=== PATIENT | female | born 1955 ===

== ENCOUNTER 2018-03-11 10:07 | Day surgery (SDC) | payer OTHER ==
[2018-03-04 10:40] VITALS: BMI 24.4
--- NOTE | 2018-03-11 10:20 | CP.SDSHP ---
Same Day Surgery H & P - History Proposed Procedure: flexible bronchoscopy Pre-Op Diagnosis: right upper lobe mass - Previous Medical/Surgical History Pulmonary: Asthma, Bronchitis Neuro: Backaches Misc: Other (GERD with Floyd's Esophagus, Chronic Depression) Pain: 6.Severe Pain (chest wall pain, taking acetaminophen/oxycodone) Previous Surgical History: lumbar spinal fusion, vocal cord polyp, right ankle fracture, right shoulder surgery - Allergies Allergies: Allergies No Known Allergies Allergy (Verified 03/04/18 10:39) - Current Medications Current Medications: REVIEWED - Physical Exam General Appearance: WN,WD,NAD Mental Status: Alert & Oriented x3 Neuro: WNL Heart: WNL Lungs: Other (DULLNESS OVER RUL AREA. BREATH SOUNDS ARE DECREASED IN THE RUL WITH BRONCHIAL CHARACTER. DRY RALES IN RLL, NO AUDIBLE WHEEZING.) GI: WNL - {Optional Preform as Required} Abdomen: WNL ENT: WNL - Impression Impression: RUL MASS LESION, NEOPLASTIC DISEASE SUSPECT Pt. Evaluated Today:Candidate for Anesthesia & Procedure: Yes - Date & Time Date: 03/11/18 Time: 10:30 Short Stay Discharge - Short Stay Discharge Admitting Diagnosis/Reason for Visit: R91.8 Disposition: HOME/ ROUTINE Referrals: John Oviedo MD [Primary Care Provider] -
[2018-03-11 10:43] LABS: HEMOGLOBIN 11.7 g/dL (12.0-16.0); MEAN CELL VOLUME 80.7 fl (81.0-99.0); MEAN CORPUSCULAR HEMOGLOBIN 25.8 pg (27.0-31.0); RBC 4.52 Mil/uL (3.80-5.20); RED CELL DISTRIBUTION WIDTH 15.3 % (11.5-14.5)
[2018-03-11 10:52] LABS: INR 1.1 (0.9-1.2); PARTIAL THROMBOPLASTIN TIME 27.6 Seconds (25.6-37.1); PROTHROMBIN TIME 11.9 Seconds (9.8-13.1)
[2018-03-11 10:53] LABS: BLOOD UREA NITROGEN 9 mg/dl (7-17); CALCIUM 9.3 mg/dL (8.4-10.2); GFR AFRICAN-AMERICAN > 60; GFR NON-AFRICAN AMERICAN > 60
[2018-03-11] MEDS ORDERED: Lactated Ringer's 1,000 ML IV ONE ×2 (11:10→13:20)
[2018-03-11] MEDS ORDERED: Lidocaine 2% Jelly (Uro-Jet) ONE ×2 (11:16)
[2018-03-11] MEDS ORDERED: Lidocaine 2% Jelly (5 ml) TOP ONE (11:17)
[2018-03-11] MEDS ORDERED: Midazolam 2 MG/2 ML VIAL ONE (11:21)
[2018-03-11] MEDS ORDERED: Ketamine 50 mg/ml Inj (10 ml) ONE (11:21)
[2018-03-11] MEDS ORDERED: Propofol 10 mg/ml Inj (20 ML) ONE (11:21)
[2018-03-11] MEDS: EPINEPHrine 1 mg/ml (1:1000) Inj ONE ×3 (12:40→12:47)
[2018-03-11] MEDS ORDERED: Lidocaine 2% Inj (20ml) IJ ONE ×2 (12:40→12:42)
[2018-03-11] MEDS: Lidocaine 2% Jelly (30 ml) ONE ×2 (12:45→12:46)
[2018-03-11] MEDS ORDERED: EPINEPHrine 1 mg/ml (1:1000) Inj ONE (12:50)
[2018-03-11] MEDS ORDERED: HYDROmorphone 0.5 mg/0.5 ml ISec IVP PRN (13:27)
[2018-03-11] MEDS ORDERED: HYDROmorphone 0.5 mg/0.5 ml ISec ONE (13:36)
--- NOTE | 2018-03-11 13:44 | CP.SDSHP ---
Same Day Surgery H & P - Allergies Allergies: Allergies No Known Allergies Allergy (Verified 03/04/18 10:39) - Physical Exam Vital Signs: Vital Signs 03/11/18 10:51 Temperature 98.6 F Pulse Rate 81 Respiratory 18 Rate Blood Pressure 146/57 L O2 Sat by Pulse 97 Oximetry Short Stay Discharge - Short Stay Discharge Admitting Diagnosis/Reason for Visit: R91.8 Disposition: HOME/ ROUTINE Referrals: John Oviedo MD [Primary Care Provider] - Follow-up: Call my office on Wednesday for follow up appointment. Additional Instructions (Diet, Activity): Resume all routine activities as before. Resume all medications as before. Tylenol for fever if present tonight. Pain medications as needed/prescribed. Progress Note/Discharge Note with Instructions: Seen in PACU post bronchoscopy. Extubated, awake and in no distress. Post procedure CXR shows large RUL mass w/o any new infiltrates, effusion or pneumothorax. Patient will be transferred back to SDS unit. Plan is for discharge to home after having PO intake.
--- NOTE | 2018-03-11 14:47 | RAD ---
HISTORY: PACU post bronchoscopy COMPARISON: Chest radiograph dated 12/06/2012 FINDINGS: LUNGS: Right upper lobe mass with probable component of atelectasis as there is superior displacement of the fissure. PLEURA: No significant pleural effusion identified, no pneumothorax apparent. CARDIOVASCULAR: Atherosclerotic aortic calcifications. Cardiomediastinal silhouette within normal limits. OSSEOUS STRUCTURES: Punched in. VISUALIZED UPPER ABDOMEN: Normal. OTHER FINDINGS: None. IMPRESSION: Right upper lobe mass with probable component of atelectasis as there is superior displacement of the fissure. No appreciable pneumothorax. Findings conveyed to TOMAS Mack by Dr. Francisco at 2:40 p.m. on 03/11/2018.
[2018-03-11 15:13] VITALS: O2SAT 96
[2018-03-11 15:19] VITALS: RESP 18
[2018-03-11 16:04] VITALS: BP 142/78; PULSE 82; TEMP 97.8
== END 2018-03-11 16:05 | disposition home or self-care (01) ==
LOC: H.OPSURG 10:07
PROVIDERS: ATTEND Internal Medicine Pulmonary Disease
DX: R91.8 Other nonspecific abnormal finding of lung field (principal); J44.9 Chronic obstructive pulmonary disease, unspecified; E78.5 Hyperlipidemia, unspecified; K21.9 Gastro-esophageal reflux disease without esophagitis; Z87.891 Personal history of nicotine dependence; M19.90 Unspecified osteoarthritis, unspecified site
CPT/HCPCS: 31622; 36415; 71045; 80048; 85027; 85610; 85730; 87015; 87070; 87101; 87116; 87181; 87206; 88104; 88305; J0171; J1170; J2001; J2250; J2704; J3010; J7040; J7120

== ENCOUNTER 2018-03-15 10:57 | Emergency (ER) | payer OTHER ==
[2018-03-15 10:57] VITALS: BMI 24.4
[2018-03-15 11:07] VITALS: TEMP 98.6
[2018-03-15] MEDS ORDERED: Morphine 4 MG/ML VIAL IM STA (11:57)
[2018-03-15] MEDS ORDERED: Morphine 4 MG/ML VIAL ONE (12:15)
--- NOTE | 2018-03-15 12:35 | ED PDOC ---
HPI: Back Time Seen by Provider: 03/15/18 11:18 Chief Complaint (Nursing): Back Pain Chief Complaint (Provider): right sided back pain History Per: Patient History/Exam Limitations: no limitations Onset/Duration Of Symptoms: Days Current Symptoms Are (Timing): Still Present Additional Complaint(s): Britney Han is a 63 year old female, with no significant past medical history, who presents to the emergency department complaining of chronic right upper back pain. Patient had a biopsy done for her lung by Dr. Burgess x6 days ago but reports chronic pain was prior to biopsy. Patient had a CT scan done and was given Tylenol, ibuprofen and oxycodone for pain but with no relief. Patient called Dr. Burgess who advised her to come to ER for stronger pain medication. Patient states pain is worst with lying down and alleviated with sitting down. She denies any fever, chills, or other medical complaints. PMD: Dr. Oviedo Past Medical History Reviewed: Historical Data, Nursing Documentation, Vital Signs Vital Signs: Last Vital Signs Temp 98.6 F 03/15/18 11:06 Pulse 77 03/15/18 11:06 Resp 19 03/15/18 11:06 BP 188/67 H 03/15/18 11:06 Pulse Ox 96 03/15/18 11:06 - Medical History PMH: Anxiety, Arthritis, Bronchitis, Depression, Gastritis, Hyperlipidemia Denies: Diabetes, Chronic Kidney Disease - Surgical History Surgical History: No Surg Hx - Family History Family History: States: Unknown Family Hx - Social History Ex-Smoker (has not smoked in the last 12 months): Yes Alcohol: Social Drugs: Denies - Home Medications Home Medications: Ambulatory Orders Medication Instructions Recorded Dexlansoprazole [Dexilant] 1 mg PO DAILY 12/03/14 Zolpidem Tartrate [Ambien] 1 tab PO HS 12/07/14 clonazePAM [clonAZEPAM] 1 mg PO QWK 12/07/14 Oxycodone HCl/Acetaminophen 1 tab PO Q4 PRN #12 tab 08/20/15 [Percocet 325 mg-5 mg] Alprazolam [Xanax] 0.25 mg PO BID #10 tab 10/23/15 Desvenlafaxine Succinate [Pristiq 25 mg PO DAILY 03/11/18 ER] Rosuvastatin Calcium [Crestor] 10 mg PO DAILY 03/11/18 - Allergies Allergies/Adverse Reactions: Allergies Allergy/AdvReac Type Severity Reaction Status Date / Time No Known Allergies Allergy Verified 03/04/18 10:39 Review of Systems ROS Statement: Except As Marked, All Systems Reviewed And Found Negative Constitutional: Negative for: Fever, Chills Musculoskeletal: Positive for: Back Pain (right upper ) Physical Exam - Reviewed Nursing Documentation Reviewed: Yes Vital Signs Reviewed: Yes - Physical Exam Appears: Positive for: Non-toxic, No Acute Distress Head Exam: Positive for: ATRAUMATIC, NORMOCEPHALIC Skin: Positive for: Normal Color, Warm, Dry Eye Exam: Positive for: Normal appearance Neck: Positive for: Painless ROM Cardiovascular/Chest: Positive for: Regular Rate, Rhythm. Negative for: Murmur Respiratory: Positive for: Normal Breath Sounds. Negative for: Respiratory Distress Gastrointestinal/Abdominal: Positive for: Normal Exam, Soft. Negative for: Tenderness Back: Positive for: Other (right upper back tenderness). Negative for: L CVA Tenderness, R CVA Tenderness, Vertebral Tenderness Extremity: Positive for: Normal ROM (upper and lower extremities). Negative for : Deformity, Swelling Neurologic/Psych: Positive for: Alert, Oriented. Negative for: Motor/Sensory Deficits - ECG O2 Sat by Pulse Oximetry: 96 (RA) Pulse Ox Interpretation: Normal Medical Decision Making Medical Decision Making: Initial Impression: chronic back pain Initial Plan: --Chest two views (PA/LAT) [RAD] --Morphine 2 mg IM --Reevaluation Accession No. : [id number] Patient Name / ID : IRENE LEMONS / [id number] Exam Date : 03/15/2018 11:57:13 ( Approved ) Study Comment : Sex / Age : F / 63Y Creator : Justin Nice MD Dictator : Justin Nice MD Foundry Operator : Pcts : Justin Nice MD Approver2 : Report Date : 03/15/2018 13:27:11 My Comment : HISTORY: Acute on chronic back pain COMPARISON: Portable chest 03/11/2018. TECHNIQUE: Chest PA and lateral FINDINGS: LUNGS: There is subtle interval aeration in the lung cephalad to a large, masslike density at the right upper lobe region though limited cavitation is possible here. Remaining lung aguirre are clear. PLEURA: No significant pleural effusion identified. No pneumothorax apparent. CARDIOVASCULAR: Normal. OSSEOUS STRUCTURES: No significant abnormalities. VISUALIZED UPPER ABDOMEN: Normal. OTHER FINDINGS: None. IMPRESSION: Mild aeration is seen cephalad to a large, right apical masslike density versus partial cavitation. CT examination of the chest is advised with contrast a lesser already evaluated. Remaining lung aguirre appear clear bilaterally otherwise. 12:40 -Spoke with Dr. Burgess. Attempted to review biopsy results but could not locate them. Scribe Attestation: Documented by Jacob Ward, acting as a scribe for Caty Calzada MD Provider Scribe Attestation: All medical record entries made by the Scribe were at my direction and personally dictated by me. I have reviewed the chart and agree that the record accurately reflects my personal performance of the history, physical exam, medical decision making, and the department course for this patient. I have also personally directed, reviewed, and agree with the discharge instructions and disposition. Disposition - Clinical Impression Clinical Impression: Chronic back pain, Lung mass - Disposition Referrals: John Oviedo MD [Staff Provider] - Disposition: Routine/Home Disposition Time: 14:20 Condition: STABLE Instructions: Chronic Pain Forms: [email or web address] (Surinamese)
--- NOTE | 2018-03-15 13:28 | RAD ---
HISTORY: Acute on chronic back pain COMPARISON: Portable chest 03/11/2018. TECHNIQUE: Chest PA and lateral FINDINGS: LUNGS: There is subtle interval aeration in the lung cephalad to a large, masslike density at the right upper lobe region though limited cavitation is possible here. Remaining lung aguirre are clear. PLEURA: No significant pleural effusion identified. No pneumothorax apparent. CARDIOVASCULAR: Normal. OSSEOUS STRUCTURES: No significant abnormalities. VISUALIZED UPPER ABDOMEN: Normal. OTHER FINDINGS: None. IMPRESSION: Mild aeration is seen cephalad to a large, right apical masslike density versus partial cavitation. CT examination of the chest is advised with contrast a lesser already evaluated. Remaining lung aguirre appear clear bilaterally otherwise.
[2018-03-15 14:41] VITALS: BP 164/70; PULSE 80; RESP 16; O2SAT 96
== END 2018-03-15 14:40 | disposition home or self-care (01) ==
LOC: H.ER 10:57
DX: M54.9 Dorsalgia, unspecified (principal); R91.8 Other nonspecific abnormal finding of lung field; G89.29 Other chronic pain; E78.5 Hyperlipidemia, unspecified; F32.9 Major depressive disorder, single episode, unspecified; F41.9 Anxiety disorder, unspecified
CPT/HCPCS: 71046; 96372; 99282; J2270

== ENCOUNTER 2018-04-07 09:04 | Day surgery (SDC) | payer OTHER ==
[2018-04-07] MEDS ORDERED: Lactated Ringer's 1,000 ML IV ONE (09:45)
[2018-04-07] MEDS ORDERED: Propofol 10 mg/ml Inj (20 ML) ONE (14:35)
[2018-04-07] MEDS ORDERED: Midazolam 2 MG/2 ML VIAL ONE (14:35)
[2018-04-07] MEDS ORDERED: LIDOCAINE 2% 10ML 20 MG/ML VIAL IJ ONE (14:36)
[2018-04-07] MEDS ORDERED: Lidocaine 1% w Epi 1:100,000 Inj ONE (14:37)
[2018-04-07 16:13] VITALS: RESP 18
[2018-04-07 18:17] VITALS: BP 162/72; PULSE 88; TEMP 99.3; O2SAT 98
--- NOTE | 2018-04-08 10:36 | CP.SDSHP ---
Same Day Surgery H & P - History Proposed Procedure: chest port insertion Pre-Op Diagnosis: right lung cancer - Allergies Allergies: Allergies No Known Allergies Allergy (Verified 03/04/18 10:39) - Impression Impression: 63 yo female w/ right lung cancer; plan chest port insertion - Date & Time Date: 04/07/18 Time: 15:00 Short Stay Discharge - Short Stay Discharge Admitting Diagnosis/Reason for Visit: LUNG CA Disposition: HOME/ ROUTINE Referrals: John Oviedo MD [Primary Care Provider] -
--- NOTE | 2018-04-08 10:37 | PCM.SURG1 ---
Surgeon's Initial Post Op Note - Surgeon's Notes Surgeon: Tavon Francisco MD Organic Preparation Technician: None Type of Anesthesia: MAC Pre-Operative Diagnosis: lung cancer Operative Findings: patent left internal jugular vein. 8 tongan chest port placed. catheter tip: cavoatrial junction Post-Operative Diagnosis: same Operation Performed: tunneled chest port insertion Specimen/Specimens Removed: n/a Estimated Blood Loss: EBL {In ML}: 3 Date of Surgery/Procedure: 04/07/18 Time of Surgery/Procedure: 15:15
--- NOTE | 2018-04-08 12:13 | VASCULAR ---
PROCEDURE: TUNNELED PORT PLACEMENT CLINICAL HISTORY: 63-year-old female with right lung cancer is referred to Interventional Radiology for tunneled port placement. COMPARISON: None. PROCEDURE: 1. Focused ultrasound of the left neck vasculature. 2. Ultrasound-guided access. 3. Placement of left internal jugular access tunneled chest port. 4. Fluoroscopic localization of catheter tip. PRE-PROCEDURE FINDINGS: 1. Patent left internal jugular vein. POST-PROCEDURE FINDINGS: 1. Placement of left internal jugular access 8 Portuguese chest port. Ready for use. 2. Catheter tip is at the SVC/ RA junction. INTERVENTIONAL RADIOLOGIST: Tavon Francisco M.D. (the attending was present for the entire procedure) ANESTHESIA: Provided by the attending anesthesiologist. Sedation was supervised by the anesthesiology attending with the presence of independent radiology nursing monitoring. Physiological data monitoring was performed throughout the entire procedure. The patient's blood pressure, EKG and pulse oximetry were recorded. The patient tolerated the procedure and sedation without untoward reactions. The intra-procedural sedation time was 30 minutes. MEDICATION: Lidocaine 1% for local subcutaneous analgesia. See anesthesia record for intravenous sedation medications. COMPLICATIONS: None. RADIATION DOSE: Fluoroscopy Time: 1.27 minutes DAP: 11.62 mGy PROCEDURE DESCRIPTION AND FINDINGS: The risks, benefits, alternatives and possible complications of the procedure were fully discussed; all questions were answered and informed consent was obtained. The patient was brought into the interventional suite and a pre-procedure 'time-out' was performed. The patient was placed on the fluoroscopy table in the supine position. The left neck and upper chest were prepped and draped in the usual sterile fashion. Maximum sterile barrier precautions were maintained throughout the entire procedure. Preliminary ultrasound images of the left neck vasculature demonstrate patency of the internal jugular vein. Following subcutaneous infiltration of lidocaine 1% for local analgesia, under ultrasound guidance, a 21-gauge needle was advanced into the left internal jugular vein with real-time visualization of needle entry. The ultrasound images were permanently recorded and submitted to the PACS. A 0.018 guidewire was advanced centrally. A 5 -Portuguese micropuncture sheath was advanced over the guidewire. The inner portion of the sheath was carefully removed with the guidewire and exchanged for a 0.035 guidewire. The micropuncture sheath was then exchanged over the guidewire for a peel-away sheath. Following subcutaneous infiltration of lidocaine 1% with epinephrine for local analgesia and hemostasis, a 3 cm incision was made approximately 7-9 cm from the venotomy site. A subcutaneous pocket was created using blunt and sharp dissection. The pocket was flushed with saline. The central venous access catheter was then tunneled from the subcutaneous pocket to the venotomy site and inserted into the internal jugular vein via the peel-away sheath. The catheter tip was placed at the SVC/RA junction. The external end of the catheter was connected to the port and the connection was tested. The incision was closed using interrupted subcutaneous 2-0 and running subcuticular 4-0 absorbable sutures. Dermabond was applied superficially. A 4-0 absorbable stitch was also placed at the venotomy site. Sterile dressings were applied. The patient tolerated the procedure well and was The patient tolerated the procedure well without immediate post-procedure complications and was transferred to the interventional radiology recovery area in stable condition. IMPRESSION: Successful insertion of 8 Portuguese tunneled chest port with catheter tip at the SVC RA junction. Port ready for use. No
== END 2018-04-07 18:20 | disposition home or self-care (01) ==
LOC: H.OPSURG 09:04
PROVIDERS: ATTEND Specialist
DX: C34.91 Malignant neoplasm of unspecified part of right bronchus or lung (principal); F32.9 Major depressive disorder, single episode, unspecified; K21.9 Gastro-esophageal reflux disease without esophagitis; Z87.891 Personal history of nicotine dependence; M19.90 Unspecified osteoarthritis, unspecified site
CPT/HCPCS: 36561; A4310; C1751; J0690; J2001; J2250; J2704; J3010; J7120

== ENCOUNTER 2018-04-23 00:52 | Inpatient (IN) | payer OTHER ==
[2018-04-23 00:52] VITALS: BMI 27.8
[2018-04-23] MEDS ORDERED: Morphine 4 MG/ML VIAL IV STA (01:16)
[2018-04-23] MEDS ORDERED: Morphine 4 MG/ML VIAL ONE (01:20)
--- NOTE | 2018-04-23 01:22 | ED PDOC ---
Lower Extremity Pain/Injury Time Seen by Provider: 04/23/18 01:10 Chief Complaint (Nursing): Weakness/Neurological Deficit Chief Complaint (Provider): Bilateral thigh pain, Right more than left History Per: Patient History/Exam Limitations: no limitations Onset/Duration Of Symptoms: Days Current Symptoms Are (Timing): Still Present Additional Complaint(s): 63 yo female with lung CA, restless leg syndrome, sciatica presents with bilateral thigh pain for 12 hours. PT states right is 10/10 and left if 6/10. Nothing makes it better or worse. PT states she took motrin at 8 which did not improve the pain. Pt denies fall or recent trauma. PT had 1 chemo treatment for lung CA and states she was also given potassium. Past Medical History Reviewed: Historical Data, Nursing Documentation, Vital Signs Vital Signs: Last Vital Signs Temp 98.2 F 04/23/18 00:55 Pulse 122 H 04/23/18 00:55 Resp 16 04/23/18 00:55 BP 122/57 L 04/23/18 00:55 Pulse Ox 94 L 04/23/18 00:55 - Medical History PMH: Anxiety, Arthritis, Bronchitis, Depression, Gastritis, Hyperlipidemia Denies: Diabetes, Chronic Kidney Disease - Surgical History Surgical History: No Surg Hx - Family History Family History: States: Unknown Family Hx - Living Arrangements Living Arrangements: With Family - Social History Current smoker - smoking cessation education provided: No - Home Medications Home Medications: Ambulatory Orders Medication Instructions Recorded Desvenlafaxine Succinate [Pristiq] 50 mg PO DAILY 04/23/18 Dexlansoprazole [Dexilant] 30 mg PO DAILY 04/23/18 Famotidine [Pepcid] 20 mg PO DAILY 04/23/18 Sucralfate [Carafate Oral Susp] 1 gm PO DAILY 04/23/18 - Allergies Allergies/Adverse Reactions: Allergies Allergy/AdvReac Type Severity Reaction Status Date / Time No Known Allergies Allergy Verified 04/23/18 01:58 Review of Systems ROS Statement: Except As Marked, All Systems Reviewed And Found Negative Constitutional: Negative for: Fever, Chills Musculoskeletal: Positive for: Leg Pain Physical Exam - Reviewed Nursing Documentation Reviewed: Yes Vital Signs Reviewed: Yes - Physical Exam Appears: Positive for: Well, Non-toxic, No Acute Distress Head Exam: Positive for: ATRAUMATIC, NORMAL INSPECTION, NORMOCEPHALIC Skin: Positive for: Normal Color, Warm, DRY Eye Exam: Positive for: Normal appearance ENT: Positive for: Normal ENT Inspection Neck: Positive for: Normal, Painless ROM Cardiovascular/Chest: Positive for: Regular Rate, Rhythm Respiratory: Positive for: Normal Breath Sounds. Negative for: Accessory Muscle Use, Respiratory Distress Back: Positive for: Normal Inspection Extremity: Positive for: Normal ROM (Bilateral hips and knees which result in increased pain; ), Other (No palpable masses, no ecchymosis ). Negative for: Deformity, Swelling Neurologic/Psych: Positive for: Alert, Oriented - Laboratory Results Result Diagrams: 04/23/18 01:20 04/23/18 01:20 - ECG O2 Sat by Pulse Oximetry: 94 Medical Decision Making Medical Decision Making: XR of the femurs without acute findings. Labs reviewed with Dr. Sheldon. Pt and family initially states that temperature was 100.0 and on re-evaluation states it was 101.0. Low WBC count - CXR, Urine and blood cultures ordered. Pt continued pain after morphine IV, states pain is 10/10 right and 6/10 left. 1520 - Discussed admission with family reunification specialist. Disposition - Clinical Impression Clinical Impression: Leg pain, Neutropenic fever - Patient ED Disposition Is Patient to be Admitted: No - Disposition Disposition Time: 04:15 Condition: STABLE
[2018-04-23 01:47] LABS: ALBUMIN 3.3 g/dL (3.5-5.0); ALT/SGPT 27 U/L (9-52); AST/SGOT 18 U/L (14-36); BLOOD UREA NITROGEN 14 mg/dl (7-17); CALCIUM 7.6 mg/dL (8.4-10.2); GFR AFRICAN-AMERICAN > 60; GFR NON-AFRICAN AMERICAN > 60
[2018-04-23 02:00] LABS: BASO % 0.4 % (0.0-2.0); EOS % 3.9 % (0.0-4.0); HEMOGLOBIN 9.7 g/dL (12.0-16.0); LYMPH # 0.4 K/uL (1.0-4.3); LYMPH % 64.7 % (20.0-40.0); MEAN CELL VOLUME 77.3 fl (81.0-99.0); MEAN CORPUSCULAR HGB CONC 33.6 g/dL (33.0-37.0); MEAN PLATELET VOLUME 7.8 fl (7.2-11.7); MONO # 0.1 K/uL (0.0-0.8); MONO % 24.6 % (0.0-10.0); NEUT % 6.4 % (50.0-75.0); NRBC % 0.6 % (0.0-0.0); PLATELET COUNT 145 K/uL (130-400); RBC 3.73 Mil/uL (3.80-5.20); RED CELL DISTRIBUTION WIDTH 16.2 % (11.5-14.5)
[2018-04-23] MEDS ORDERED: Sodium Chloride 0.9% 1,000 ML IV STA ×2 (02:00→04:32)
[2018-04-23] MEDS ORDERED: Potassium Chloride 20 mEq ER Tab PO STA (02:01)
[2018-04-23 02:02] LABS: WHITE BLOOD COUNT 0.5 K/uL (4.8-10.8)
[2018-04-23] MEDS ORDERED: Potassium Chloride 20 mEq ER Tab PO ONE ×2 (02:04→08:57)
[2018-04-23 03:40] LABS: VENOUS BLOOD GAS BASE EXCESS 0.1 mmol/L (0.0-2.0); VENOUS BLOOD GAS PCO2 43 mmHg (40-60); VENOUS BLOOD GAS PO2 17 mm/Hg (30-55); VENOUS BLOOD PH 7.38 (7.32-7.43)
[2018-04-23] MEDS ORDERED: Piperacillin/Tazobact 3.375 GM in Sodium Chloride 0.9% 100 ML IV ONE (04:15)
[2018-04-23] MEDS ORDERED: Piperacillin/Tazobact 3.375 gm Inj IVPB ONE (04:32)
[2018-04-23 05:28] LABS: LYMPHOCYTE 88 % (20-50); MONOCYTE 4 % (0-10); NEUTROPHIL 8 % (42-75); PLATELET ESTIMATE NORMAL (NORMAL); ROULEAUX FORMATION SLIGHT; TOTAL CELLS COUNTED 50
[2018-04-23 05:30] LABS: ANISOCYTOSIS SLIGHT
[2018-04-23] MEDS ORDERED: Sodium Chloride 0.9% 500 ML IV SCH (05:45)
--- NOTE | 2018-04-23 05:46 | CP.PCM.HP ---
History of Present Illness - History of Present Illness History of Present Illness: 63 y/o F with PMHx of Lung cancer diagnosed 2 months ago, on chemo presents to ED complaining of fever. Patient states that since yesterday afternoon she started having sharp pain in her legs, more intense in her right thigh. Denies back pain, weakness in lower extremities, new onset of bladder or bowel incontinence. Also patient states she started having chills yesterday afternoon, and when her family checked her temp was 100 F first time, and re-check temp 101. reports on and off nausea without vomiting since she was started on chemo. Denies abdominal pain, diarrheas, cp, SOB, cough, urinary symptoms. PMD: Dr. Oviedo Fruit And Vegetable Packer: Dr. Burgess Oncologist: as per [facility]: Dr. Vital PMHx: Lung ca, anxiety, depression, HLD, and GERD Allergies: NKDA Surgical Hx: spinal effusion SocialHx: former smoker, stopped 5 years ago, denies etoh and illicit drugs Present on Admission - Present on Admission Any Indicators Present on Admission: No History of DVT/PE: No History of Uncontrolled Diabetes: No Urinary Catheter: No Decubitus Ulcer Present: No Review of Systems - Review of Systems All systems: reviewed and no additional remarkable complaints except (as per HPI ) Past Patient History - Tetanus Immunizations Tetanus Immunization: Unknown - Past Medical History & Family History Past Medical History?: Yes - Past Social History Smoking Status: Former Smoker - PULMONARY Hx Bronchitis: Yes - NEUROLOGICAL Hx Neurological Disorder: No - HEENT Hx HEENT Problems: No - RENAL Hx Chronic Kidney Disease: No - ENDOCRINE/METABOLIC Hx Endocrine Disorders: No - HEMATOLOGICAL/ONCOLOGICAL Hx Blood Disorders: No - INTEGUMENTARY Hx Dermatological Problems: No - MUSCULOSKELETAL/RHEUMATOLOGICAL Hx Arthritis: Yes - GASTROINTESTINAL Hx Gastritis: Yes - GENITOURINARY/GYNECOLOGICAL Hx Genitourinary Disorders: No - PSYCHIATRIC Hx Anxiety: Yes Hx Depression: Yes - SURGICAL HISTORY Hx Surgeries: Yes Other/Comment: LUMBAR SPINAL FUSION,THROAT POLYPECTOMY AND LUNG BX - ANESTHESIA Hx Anesthesia: Yes Hx Anesthesia Reactions: No Hx Malignant Hyperthermia: No Meds Allergies/Adverse Reactions: Allergies Allergy/AdvReac Type Severity Reaction Status Date / Time No Known Allergies Allergy Verified 04/23/18 01:58 Physical Exam - Constitutional Appears: Chronically Ill, Other (uncomfortable because pain) - Head Exam Head Exam: ATRAUMATIC, NORMOCEPHALIC - Eye Exam Eye Exam: Normal appearance - ENT Exam ENT Exam: Mucous Membranes Dry - Respiratory Exam Respiratory Exam: Clear to Auscultation Bilateral, NORMAL BREATHING PATTERN. absent: Rales, Rhonchi, Wheezes, Respiratory Distress - Cardiovascular Exam Cardiovascular Exam: REGULAR RHYTHM, +S1, +S2 - GI/Abdominal Exam GI & Abdominal Exam: Normal Bowel Sounds, Soft. absent: Guarding, Rebound, Rigid, Tenderness - Extremities Exam Extremities exam: Positive for: calf tenderness (bilateral). Negative for: pedal edema Additional comments: Lower extremities tender to palpation from thigh to legs bilateral. - Back Exam Back exam: NORMAL INSPECTION. absent: CVA tenderness (L), CVA tenderness (R) - Neurological Exam Neurological exam: Alert, Oriented x3 - Skin Skin Exam: Dry, Intact, Pallor Results - Vital Signs Recent Vital Signs: Last Vital Signs Temp 98.1 F 04/23/18 04:38 Pulse 98 H 04/23/18 04:38 Resp 19 04/23/18 04:38 BP 106/58 L 04/23/18 04:38 Pulse Ox 94 L 04/23/18 05:44 - Labs Result Diagrams: 04/23/18 01:20 04/23/18 01:20 Labs: Laboratory Results - last 24 hr 04/23/18 04/23/18 04/23/18 01:20 01:20 03:04 WBC 0.5 L* D RBC 3.73 L Hgb 9.7 L Hct 28.8 L MCV 77.3 L MCH 26.0 L MCHC 33.6 RDW 16.2 H Plt Count 145 MPV 7.8 Neut % (Auto) 6.4 L Lymph % (Auto) 64.7 H Oliver % (Auto) 24.6 H Eos % (Auto) 3.9 Baso % (Auto) 0.4 Neut # (Auto) 0.0 L Lymph # (Auto) 0.4 L Oliver # (Auto) 0.1 Eos # (Auto) 0.0 Baso # (Auto) 0.0 Neutrophils % (Manual) 8 L Lymphocytes % (Manual) 88 H Monocytes % (Manual) 4 Platelet Estimate Normal Anisocytosis (manual) Slight Rouleaux Slight pO2 17 L VBG pH 7.38 VBG pCO2 43 VBG HCO3 23.4 VBG Total CO2 26.7 VBG O2 Sat (Calc) 20.6 L VBG Base Excess 0.1 VBG Potassium 3.8 Glucose 132 H Lactate 1.4 FiO2 21.0 Sodium 136 134.0 Potassium 3.2 L Chloride 101 104.0 Carbon Dioxide 21 L Anion Gap 17 BUN 14 Creatinine 0.9 Est GFR ( Amer) > 60 Est GFR (Non-Af Amer) > 60 Random Glucose 108 H Calcium 7.6 L Total Bilirubin 0.7 AST 18 ALT 27 Alkaline Phosphatase 109 Total Protein 6.5 Albumin 3.3 L Globulin 3.2 Albumin/Globulin Ratio 1.0 Venous Blood Potassium 3.8 Assessment & Plan - Assessment and Plan (Free Text) Assessment: 63 y/o F with PMHx of Lung cancer on chemo admitted with untreatable pain, Neutropenia, and Fevers. Plan: Pain in lower extremities - MedSurg unit -could represent bone methastasis -F/U femur x ray -Pain control -Lower ext dupplex vein US due to calf tenderness/pain Fever -possible neutropenic fever. reported a fever of 101 at home -Neutropenic precautions -afebrile on admission -f/u UA and UCx -F/u blood Cx -f/u CXR official report -abx for prophylaxis -f/u CBC -asper [facility] s/p Granix in 04/18/18 -Consider Hemo-Onco consult for recommendations Microcytic Hypochromic Anemia -H/H on admission 9.7/28.8, was 11.1/33.9 in 04/18/18 -most likely 2/2 cancer and chemo -no evidence of active bleeding -f/u CBC Hypokalemia -3.2 on admission -replaced in ER with 40 mEQ F/u BMP DVT prophylaxis SCDs for now due drop in H/H. f/u LE dupplex US - Date & Time Date: 04/23/18 Time: 05:30
[2018-04-23] MEDS ORDERED: Sodium Chloride 0.9% 1,000 ML IV SCH ×3 (07:15→10:45)
[2018-04-23] MEDS ORDERED: Piperacillin/Tazobact 4.5 GM in Sodium Chloride 0.9% 100 ML IVPB SCH ×2 (09:00→12:00)
--- NOTE | 2018-04-23 09:36 | RAD ---
PROCEDURE: Radiographs of the bilateral femurs. HISTORY: pain, lung CA COMPARISON: None. FINDINGS: BONES: Right Femur: No acute fracture or bony lesion. Narrowing of the right hip. Left Femur: No acute fracture or bony lesion. Narrowing of the left hip. SOFT TISSUES: Right Femur: Normal. Left Femur: Normal. OTHER FINDINGS: None. IMPRESSION: No demonstrated fracture, dislocation or evidence of bony lesion. Mild bilateral hip degenerative changes.
--- NOTE | 2018-04-23 09:38 | RAD ---
HISTORY: neutropenia, fever COMPARISON: Chest radiograph dated 03/15/2018 TECHNIQUE: Chest PA and lateral FINDINGS: LUNGS: Ill-defined right suprahilar mass with postobstructive right upper lobe atelectasis/ consolidation. PLEURA: No significant pleural effusion identified. No pneumothorax apparent. CARDIOVASCULAR: Atherosclerotic aortic calcifications. Cardiomediastinal silhouette within normal. OSSEOUS STRUCTURES: Unchanged. VISUALIZED UPPER ABDOMEN: Normal. OTHER FINDINGS: Left internal jugular access chest port with catheter tip at the cavoatrial junction. IMPRESSION: Ill-defined right suprahilar mass with postobstructive right upper lobe atelectasis/consolidation.
[2018-04-23] MEDS: Pantoprazole 20 mg EC Tab PO SCH (10:04)
[2018-04-23] MEDS ORDERED: Enoxaparin 40 mg Syringe SC SCH (11:15)
--- NOTE | 2018-04-23 11:15 | CP.PCM.CON ---
History of Present Illness - History of Present Illness History of Present Illness: This is a 63 yrs old female who was diagnosed to have a small cell lung cancer about 4 weeks ago. 2 weeks ago she was started on chemotherapy with cisplatin and etoposide. She unfortunately had a lot of nausea and vomiting and we brought her to the infusion center , hydrated her ,and gave her granix even though her count was 5.9. She felt better and was doing well until last night when she suddenly had fever, mild shortness of breath , and severe pain in the right hip radiating down her right thigh. The Xray of the femur does not show any fracture and neither does the hip. Only degenerative changes, She has a h/o spinal stenosis and has been injected a few times.. In the ER she was found to be dehydrated, but was not febrile. C/S were done and she has been started on antibiotics until the c/s are obtained. Her WBC was 0.5, so she was started on granix, and also on lovenox. She appears better now even though the right leg pain persists. Past Patient History - Tetanus Immunizations Tetanus Immunization: Unknown - Past Medical History & Family History Past Medical History?: Yes - Past Social History Smoking Status: Former Smoker - PULMONARY Hx Bronchitis: Yes - NEUROLOGICAL Hx Neurological Disorder: No - HEENT Hx HEENT Problems: No - RENAL Hx Chronic Kidney Disease: No - ENDOCRINE/METABOLIC Hx Endocrine Disorders: No - HEMATOLOGICAL/ONCOLOGICAL Hx Blood Disorders: No - INTEGUMENTARY Hx Dermatological Problems: No - MUSCULOSKELETAL/RHEUMATOLOGICAL Hx Arthritis: Yes - GASTROINTESTINAL Hx Gastritis: Yes - GENITOURINARY/GYNECOLOGICAL Hx Genitourinary Disorders: No - PSYCHIATRIC Hx Anxiety: Yes Hx Depression: Yes - SURGICAL HISTORY Hx Surgeries: Yes Other/Comment: LUMBAR SPINAL FUSION,THROAT POLYPECTOMY AND LUNG BX - ANESTHESIA Hx Anesthesia: Yes Hx Anesthesia Reactions: No Hx Malignant Hyperthermia: No Meds Allergies/Adverse Reactions: Allergies Allergy/AdvReac Type Severity Reaction Status Date / Time No Known Allergies Allergy Verified 04/23/18 01:58 - Medications Medications: Current Medications Home Med (Desvenlafaxine Succinate [Pristiq]) 50 mg PO DAILY [facility] Vancomycin HCl 1 gm/ Sodium (Chloride) 250 mls @ 166.667 mls/hr IVPB DAILY [facility] PRN Reason: Protocol Last Admin: 04/23/18 10:03 Dose: 166.667 mls/hr Piperacillin Sod/Tazobactam (Sod 4.5 gm/ Sodium Chloride) 100 mls @ 100 mls/hr IVPB Q8 [facility] PRN Reason: Protocol Sodium Chloride (Sodium Chloride 0.9%) 1,000 mls @ 999 mls/hr IV .Q1H1M [facility] Stop: 04/23/18 11:45 Ondansetron HCl (Zofran Inj) 4 mg IVP Q6 PRN PRN Reason: Nausea/Vomiting Pantoprazole Sodium (Protonix Ec Tab) 20 mg PO DAILY [facility] Last Admin: 04/23/18 10:04 Dose: 20 mg Sucralfate (Carafate Oral Susp) 1 gm PO DAILY [facility] Physical Exam - Additional Findings Additional findings: Physical exam; alert,well oriented in no acute distress neck; supple, no adenopathy Chest; sounds slightly decreased on the right lung field no rales or rhonchi Heart; RSR, no murmur Abd ; Soft, no mass no h/s megaly Results - Vital Signs Recent Vital Signs: Last Vital Signs Temp 97.8 F 04/23/18 09:55 Pulse 104 H 04/23/18 09:55 Resp 21 04/23/18 09:55 BP 102/68 04/23/18 09:55 Pulse Ox 96 04/23/18 09:55 - Labs Result Diagrams: 04/23/18 01:20 04/23/18 01:20 Labs: Laboratory Results - last 24 hr 04/23/18 04/23/18 04/23/18 01:20 01:20 03:04 WBC 0.5 L* D RBC 3.73 L Hgb 9.7 L Hct 28.8 L MCV 77.3 L MCH 26.0 L MCHC 33.6 RDW 16.2 H Plt Count 145 MPV 7.8 Neut % (Auto) 6.4 L Lymph % (Auto) 64.7 H [place] % (Auto) 24.6 H Eos % (Auto) 3.9 Baso % (Auto) 0.4 Neut # (Auto) 0.0 L Lymph # (Auto) 0.4 L [place] # (Auto) 0.1 Eos # (Auto) 0.0 Baso # (Auto) 0.0 Neutrophils % (Manual) 8 L Lymphocytes % (Manual) 88 H Monocytes % (Manual) 4 Platelet Estimate Normal Anisocytosis (manual) Slight Rouleaux Slight pO2 17 L VBG pH 7.38 VBG pCO2 43 VBG HCO3 23.4 VBG Total CO2 26.7 VBG O2 Sat (Calc) 20.6 L VBG Base Excess 0.1 VBG Potassium 3.8 Glucose 132 H Lactate 1.4 FiO2 21.0 Sodium 136 134.0 Potassium 3.2 L Chloride 101 104.0 Carbon Dioxide 21 L Anion Gap 17 BUN 14 Creatinine 0.9 Est GFR ( Amer) > 60 Est GFR (Non-Af Amer) > 60 Random Glucose 108 H Calcium 7.6 L Total Bilirubin 0.7 AST 18 ALT 27 Alkaline Phosphatase 109 Total Protein 6.5 Albumin 3.3 L Globulin 3.2 Albumin/Globulin Ratio 1.0 Venous Blood Potassium 3.8 Assessment & Plan - Assessment and Plan (Free Text) Assessment: Impression; Small cell lung cancer neutropenia secondary to chemotherapy Pain right leg ?DVT Mild chest pain ?PE Plan: Plan; Antibiotics,,ctscan chest, venous doppler,bone scan Will continue granix until the wbc goes above 7. - Date & Time Date: 04/23/18 Time: 11:29
[2018-04-23 11:17] LABS: BASO % 0.5 % (0.0-2.0); EOS % 1.9 % (0.0-4.0); HEMOGLOBIN 8.3 g/dL (12.0-16.0); LYMPH # 0.3 K/uL (1.0-4.3); LYMPH % 57.8 % (20.0-40.0); MEAN CORPUSCULAR HEMOGLOBIN 25.6 pg (27.0-31.0); MEAN CORPUSCULAR HGB CONC 32.2 g/dL (33.0-37.0); MEAN PLATELET VOLUME 7.6 fl (7.2-11.7); MONO # 0.1 K/uL (0.0-0.8); NEUT # 0.1 K/uL (1.8-7.0); NEUT % 23.8 % (50.0-75.0); NRBC % 0.2 % (0.0-0.0); RBC 3.25 Mil/uL (3.80-5.20)
[2018-04-23 11:28] LABS: WHITE BLOOD COUNT 0.4 K/uL (4.8-10.8)
[2018-04-23 11:29] LABS: MEAN CELL VOLUME 79.5 fl (81.0-99.0)
[2018-04-23 11:37] LABS: BLOOD UREA NITROGEN 17 mg/dl (7-17); CALCIUM 6.3 mg/dL (8.4-10.2); GFR AFRICAN-AMERICAN > 60; GFR NON-AFRICAN AMERICAN 56
[2018-04-23] MEDS: Sucralfate 1 gm/10 ml Oral Susp UD PO SCH (11:39)
[2018-04-23] MEDS: Piperacillin/Tazobact 4.5 GM in Sodium Chloride 0.9% 100 ML IVPB SCH ×3 (13:15→21:32)
[2018-04-23] MEDS ORDERED: Sodium Chloride 0.9% 50 ML IV ONE (16:36)
[2018-04-23] MEDS ORDERED: Iodixanol 320 MG/ML 100 ML BOTTLE IV ONE (16:36)
--- NOTE | 2018-04-23 18:01 | US ---
PROCEDURE: Bilateral lower extremity venous duplex Doppler. HISTORY: calf pain COMPARISON: None available. TECHNIQUE: Bilateral common femoral, superficial femoral, popliteal and posterior tibial veins were evaluated. Flow was assessed with color Doppler, compressibility, assessment of phasic flow and augmentation response. FINDINGS: COMMON FEMORAL VEIN: Right CFV: Unremarkable. Left CFV: Unremarkable. SUPERFICIAL FEMORAL VEIN: Right SFV: Unremarkable. Left SFV: Unremarkable. POPLITEAL VEIN: Right Popliteal: Unremarkable. Left Popliteal: Unremarkable. POSTERIOR TIBIAL VEIN: Right PTV: Unremarkable. Left PTV: Intraluminal echogenic material, partial compressibility and partial lack of Doppler flow in 1 of the paired posterior tibial veins. OTHER FINDINGS: None. IMPRESSION: Nonocclusive deep venous thrombosis involving 1 of the paired left posterior tibial veins. Findings conveyed to TOMAS Allen by the wood technologist immediately after conclusion of the examination.
[2018-04-23 18:22] LABS: SQUAMOUS EPITHIAL 2 /hpf (0-5); URINE BILIRUBIN NEGATIVE (NEGATIVE); URINE BLOOD SMALL (NEGATIVE); URINE CLARITY CLOUDY (Clear); URINE COLOR YELLOW (YELLOW); URINE GLUCOSE (UA) NEG (Normal); URINE LEUKOCYTE ESTERASE NEG Leu/uL (Negative); URINE PROTEIN 30 mg/dL (NEGATIVE); URINE UROBILINOGEN 0.2-1.0 mg/dL (0.2-1.0)
--- NOTE | 2018-04-23 18:29 | CT ---
EXAM: CT Angiography Chest With Intravenous Contrast EXAM DATE/TIME: 04/23/2018 10:50 AM CLINICAL HISTORY: 63 years old, female; Condition or disease; Other: SOB; Additional info: Shortness of breath TECHNIQUE: Axial computed tomographic angiography images of the chest with intravenous contrast using pulmonary embolism protocol. All CT scans at this facility use one or more dose reduction techniques, viz.: automated exposure control; ma/kV adjustment per patient size (including targeted exams where dose is matched to indication; i.e. head); or iterative reconstruction technique. MIP reconstructed images were created and reviewed. Coronal and sagittal reformatted images were created and reviewed. CONTRAST: 100 mL of visipaque administered intravenously. COMPARISON: There are no prior studies for comparison. FINDINGS: Heart, aorta and Pulmonary arteries: Heart size is normal.There is trace fluid in pericardial recesses.There is no aneurysm or dissection. There is perfusion of the 3 arch vessels. There are vascular calcifications. There are no central pulmonary emboli. There are multiple small peripheral pulmonary emboli in the lower lobe arteries bilaterally. There are small nonocclusive left upper lobe filling defects. Mediastinum: There is infiltrative/inflammatory change in the fat of the mediastinum. There are mildly prominent mediastinal nodes. There is right adenopathy. There is subcarinal mass and adenopathy. Esophagus is well demonstrated. There is a hiatal hernia. Lungs and pleural spaces: Trachea and main bronchi are patent. There is a right hilar adenopathy with encasement and almost complete occlusion of the right upper lobe bronchus and its branches. There is encasement of the bronchus intermedius. Middle and lower lobe bronchi are patent. Left upper and lower lobe bronchi are patent and well-aerated. There is a posterior right upper lobe mass which is contiguous with the right hilum. Mass measures approximately 6.6 x 5.3 x 5.1 cm. The mass abuts the major fissure posteriorly. There irregular pleural thickening in the right upper hemithorax. There are panlobular emphysematous changes greatest at the right base. There is subsegmental atelectasis and scarring at the right base. There is airspace disease with air bronchograms in the left lower lobe. There is scarring in the lingula. There are mild centrilobular changes in the upper lobes left greater than right. Upper abdomen: There are no acute abnormalities in the visualized portion of the abdomen Thyroid: Thyroid is not optimally demonstrated. Bones/joints: There are degenerative changes in the osseus structures. Soft tissues: unremarkable Tubes, lines and devices: There is a Port-A-Cath in the left chest wall. Catheter tip is at the cavoatrial junction. IMPRESSION: Multiple small bilateral acute appearing pulmonary emboli greatest in the lower lobes; right upper lobe mass with right hilar adenopathy; encasement and marked narrowing/occlusion of right upper lobe bronchi; left lower lobe pneumonia; emphysema Additional nonemergent findings as described above.
--- NOTE | 2018-04-23 18:42 | CT ---
EXAM: CT Abdomen and Pelvis With Intravenous Contrast EXAM DATE/TIME: 04/23/2018 2:50 PM CLINICAL HISTORY: 63 years old, female; Pain; Abdominal pain; Epigastric; Patient HX: Abd pain/sob; Additional info: Small cell lung cancer, fever and neutropenia TECHNIQUE: Axial computed tomography images of the abdomen and pelvis with intravenous contrast. All CT scans at this facility use one or more dose reduction techniques, viz.: automated exposure control; ma/kV adjustment per patient size (including targeted exams where dose is matched to indication; i.e. head); or iterative reconstruction technique. Coronal and sagittal reformatted images were created and reviewed. CONTRAST: 100 mL of visipaque administered intravenously. COMPARISON: There are no prior studies for comparison. FINDINGS: Lower thorax: Heart size is normal. There is a hiatal hernia. There is left lower lobe airspace disease. There is subsegmental atelectasis/scarring at the right base. There are small bilateral pulmonary emboli best seen in the left lower lobe vessels. ABDOMEN: Liver: There is mild periportal edema. Liver is mildly enlarged. Gallbladder and bile ducts: Gallbladder is partially distended. There is pericholecystic fluid. Common duct is normal in caliber. Pancreas: Pancreas is mildly atrophic. Spleen: Spleen is unremarkable. There are accessory splenules in the left upper quadrant. Adrenals: unremarkable Kidneys and ureters: There are subtle perfusion defects in the kidneys bilaterally. There is no pelvocaliectasis or ureterectasis. Stomach and bowel: There is a moderate sized hiatal hernia. Stomach is almost completely empty. Rotation is normal. Mid and distal small bowel are mildly distended with fluid. There is no obstruction. Ileocecal region is unremarkable.Appendix and terminal ileum are unremarkable.There is no cecal inflammatory change. There is moderate stool in the colon. PELVIS: Appendix: See stomach and bowel Bladder: unremarkable Reproductive: Uterus and adnexal structures are unremarkable. ABDOMEN and PELVIS: Intraperitoneal space: There is no free air. Bones/joints: Bony structures are osteopenic. There degenerative changes. There is partial ankylosis of the sacroiliac joints. There is laminectomy and fusion L5-S1. Soft tissues: unremarkable Vasculature: Vascular structures are unremarkable. Lymph nodes: There is no pathologic adenopathy. IMPRESSION: Left lower lobe pneumonia; pulmonary emboli; periportal edema; subtle bilateral renal perfusion defects suggest pyelonephritis; pericholecystic fluid, no ductal dilatation; no CT findings to suggest typhlitis Additional nonemergent findings as described above.
--- NOTE | 2018-04-23 18:54 | CP.PCM.PCO ---
Subjective - Physician Review Subjective (Free Text): -reviewed CTA lung/abdomen findings with [facility] Radiologist Dr. Duncan -discussed findings with hem/onc Dr. Saldaña -starting therapeutic lovenox 60mg BID SC at 21:00 for B/L PEs
--- NOTE | 2018-04-23 19:02 | CP.PCM.PN ---
Subjective - Date & Time of Evaluation Date of Evaluation: 04/23/18 Time of Evaluation: 08:30 - Subjective Subjective: 63F seen and examined at bedside with attending. Patient complaint of sharp, constant severe pain R>L bilateral proximal thighs since yesterday morning. She rates 7-8/10. Although she denies chest pain/ palpitations she describes feeling short of breath. As per nursing her blood pressure is low after receiving pain medication in the ER. Otherwise, patient denies sick contacts, nausea, vomiting, diarrhea, and was seen by Dr Saldaña 04/18. Objective - Vital Signs/Intake and Output Vital Signs (last 24 hours): Temp Pulse Resp BP Pulse Ox 36.9 C 110 H 20 108/60 98 04/23/18 16:48 04/23/18 16:48 04/23/18 16:48 04/23/18 16:48 04/23/18 16:48 - Medications Medications: Current Medications Enoxaparin Sodium (Lovenox) 60 mg SC Q12 [facility] PRN Reason: Protocol Home Med (Desvenlafaxine Succinate [Pristiq]) 50 mg PO DAILY [facility] Piperacillin Sod/Tazobactam (Sod 4.5 gm/ Sodium Chloride) 100 mls @ 100 mls/hr IVPB Q6 [facility] PRN Reason: Protocol Last Admin: 04/23/18 17:53 Dose: 100 mls/hr Ketorolac Tromethamine (Toradol) 30 mg IVP TID PRN PRN Reason: Pain, severe (8-10) Ondansetron HCl (Zofran Inj) 4 mg IVP Q6 PRN PRN Reason: Nausea/Vomiting Pantoprazole Sodium (Protonix Ec Tab) 20 mg PO DAILY [facility] Last Admin: 04/23/18 10:04 Dose: 20 mg Sucralfate (Carafate Oral Susp) 1 gm PO DAILY [facility] Last Admin: 04/23/18 11:39 Dose: 1 gm - Labs Labs: 04/23/18 10:25 04/23/18 10:25 - Constitutional Appears: Non-toxic, In Acute Distress (MILD) - Head Exam Head Exam: ATRAUMATIC, NORMAL INSPECTION - Eye Exam Eye Exam: EOMI, Normal appearance Pupil Exam: PERRL - ENT Exam ENT Exam: Mucous Membranes Moist, Normal Exam - Neck Exam Neck Exam: Full ROM, Normal Inspection - Respiratory Exam Respiratory Exam: Clear to Ausculation Bilateral (tachypnea, but saturating at 98%), NORMAL BREATHING PATTERN - Cardiovascular Exam Cardiovascular Exam: Tachycardia, REGULAR RHYTHM, +S1, +S2 - GI/Abdominal Exam GI & Abdominal Exam: Soft, Normal Bowel Sounds - Extremities Exam Extremities Exam: Full ROM, Normal Capillary Refill, Normal Inspection, Tenderness (noted prominently at RIGHT, proximal thigh) - Neurological Exam Neurological Exam: Alert, Awake, CN II-XII Intact, Oriented x3 - Psychiatric Exam Psychiatric exam: Anxious - Skin Skin Exam: Dry, Warm Assessment and Plan - Assessment and Plan (Free Text) Assessment: 63F p/w neutropenic fever after receiving one course of chemotherapy and a dose of granxi 04/18. Worsening shortness of breath despite saturation and underlying malignancy raises concerns for PE or worsening tumor load. - Hypotension: Total of 3L of NS administered with good response - Dyspnea: combined anxiety with underlying malignancy, NC@2L - Pain Control: Toradol 30mg, IVP, Q6H PRN for pain, 0.5mg Dilaudid for breakthrough - Depression/Anxiety: Daughter to bring Bharath in from home - GERD: resume home PPI, sucralfate - Neutropenic Fever: f/u BCx/UCx, PCT-8.1, Granix, Trend CBC - Consult Dr George Saldaña: Granix 300mcg daily, Zosyn 4.5mg Q6H, CTA chest, CT abd/ pelvis with IV contrast, Bone Scan, CBC QOD - Consult Dr Burgess: notified and aware of all developments - DVT prophylaxis: 40mg Lovenox - Regular Diet - Reverse Isolation Precautions
[2018-04-23] MEDS: Enoxaparin 60 mg Syringe SC SCH (21:32)
[2018-04-23] MEDS ORDERED: HYDROmorphone 0.5 mg/0.5 ml ISec IVP ONE (22:32)
[2018-04-24] MEDS: Piperacillin/Tazobact 4.5 GM in Sodium Chloride 0.9% 100 ML IVPB SCH ×4 (03:53→21:54)
[2018-04-24] MEDS ORDERED: Sodium Chloride 0.9% 1,000 ML IV SCH (04:45)
--- NOTE | 2018-04-24 08:03 | CP.PCM.PN ---
Subjective - Date & Time of Evaluation Date of Evaluation: 04/24/18 Time of Evaluation: 07:58 - Subjective Subjective: Pt feels well except for the right hip and femur pain. The x rays done yesterday only showed degenerative disease, no fracture or metastasis. She was also found to have some small emboli in the left lung. She is now on the therapeutic dose of lovenox. Her o2 sats have been between 93-95%, she is afebrile slightly tachycardic. Objective - Vital Signs/Intake and Output Vital Signs (last 24 hours): Temp Pulse Resp BP Pulse Ox 97.9 F 100 H 20 92/61 L 95 04/24/18 00:46 04/24/18 00:46 04/24/18 00:46 04/24/18 00:46 04/24/18 00:46 - Medications Medications: Current Medications Alprazolam (Xanax) 1 mg PO TID PRN PRN Reason: Insomnia Atorvastatin Calcium (Lipitor) 20 mg PO DAILY [facility] Enoxaparin Sodium (Lovenox) 60 mg SC Q12 [facility] PRN Reason: Protocol Last Admin: 04/23/18 21:32 Dose: 60 mg Home Med (Desvenlafaxine Succinate [Pristiq]) 50 mg PO DAILY [facility] Hydromorphone HCl (Dilaudid) 0.5 mg IVP Q6 PRN PRN Reason: Pain, severe (8-10) Piperacillin Sod/Tazobactam (Sod 4.5 gm/ Sodium Chloride) 100 mls @ 100 mls/hr IVPB Q6 [facility] PRN Reason: Protocol Last Admin: 04/24/18 03:53 Dose: 100 mls/hr Ketorolac Tromethamine (Toradol) 30 mg IVP TID PRN PRN Reason: Pain, severe (8-10) Last Admin: 04/24/18 05:35 Dose: 30 mg Ondansetron HCl (Zofran Inj) 4 mg IVP Q6 PRN PRN Reason: Nausea/Vomiting Pantoprazole Sodium (Protonix Ec Tab) 20 mg PO DAILY [facility] Last Admin: 04/23/18 10:04 Dose: 20 mg Sucralfate (Carafate Oral Susp) 1 gm PO DAILY [facility] Last Admin: 04/23/18 11:39 Dose: 1 gm Zolpidem Tartrate (Ambien) 5 mg PO HS PRN PRN Reason: Anxiety Last Admin: 04/23/18 21:40 Dose: 5 mg - Labs Labs: 04/23/18 10:25 04/23/18 10:25 Assessment and Plan - Assessment and Plan (Free Text) Plan: plan Will continue the granix until the WBC is above 7.0. Analgesics formpain. Have ordered a bone scan to see if there mightbe a metastatic focus
[2018-04-24] MEDS ORDERED: Enoxaparin 60 mg Syringe SC SCH ×2 (09:00→21:00)
[2018-04-24 09:22] LABS: HEMOGLOBIN 9.2 g/dL (12.0-16.0); MEAN CORPUSCULAR HEMOGLOBIN 25.3 pg (27.0-31.0); MEAN CORPUSCULAR HGB CONC 31.6 g/dL (33.0-37.0); PLATELET COUNT 157 K/uL (130-400); RBC 3.63 Mil/uL (3.80-5.20); RED CELL DISTRIBUTION WIDTH 16.9 % (11.5-14.5)
[2018-04-24 09:28] LABS: ALB/GLOB RATIO 0.9 (1.0-2.1); ALBUMIN 2.8 g/dL (3.5-5.0)
[2018-04-24] MEDS: Enoxaparin 60 mg Syringe SC SCH ×2 (09:30→21:53)
[2018-04-24] MEDS: Sucralfate 1 gm/10 ml Oral Susp UD PO SCH (09:30)
[2018-04-24] MEDS: Pantoprazole 20 mg EC Tab PO SCH (09:30)
[2018-04-24 09:53] LABS: WHITE BLOOD COUNT 1.4 K/uL (4.8-10.8)
[2018-04-24] MEDS ORDERED: CALCIUM GLUCONATE IV ONE (10:15)
[2018-04-24] MEDS ORDERED: SODIUM CHLORIDE 0.9% IV ONE (10:15)
--- NOTE | 2018-04-24 10:16 | CP.PCM.PN ---
Subjective - Date & Time of Evaluation Date of Evaluation: 04/24/18 Time of Evaluation: 10:14 - Subjective Subjective: No acute overnight events. Pt states that her leg feels better then yesterday. Denies chills, subjective fevers, n/v/d/c. Objective - Vital Signs/Intake and Output Vital Signs (last 24 hours): Temp Pulse Resp BP Pulse Ox 97.9 F 95 H 20 103/70 88 L 04/24/18 09:02 04/24/18 09:02 04/24/18 09:02 04/24/18 09:02 04/24/18 09:02 - Medications Medications: Current Medications Alprazolam (Xanax) 1 mg PO TID PRN PRN Reason: Insomnia Atorvastatin Calcium (Lipitor) 20 mg PO DAILY [facility] Calcium Carbonate (Oscal) 500 mg PO BIDWM [facility] Enoxaparin Sodium (Lovenox) 60 mg SC Q12 [facility] PRN Reason: Protocol Last Admin: 04/23/18 21:32 Dose: 60 mg Home Med (Desvenlafaxine Succinate [Pristiq]) 50 mg PO DAILY [facility] Hydromorphone HCl (Dilaudid) 0.5 mg IVP Q6 PRN PRN Reason: Pain, severe (8-10) Piperacillin Sod/Tazobactam (Sod 4.5 gm/ Sodium Chloride) 100 mls @ 100 mls/hr IVPB Q6 [facility] PRN Reason: Protocol Last Admin: 04/24/18 03:53 Dose: 100 mls/hr Calcium Gluconate 1,000 meq/ (Sodium Chloride) 2,650.5376 mls @ 100 mls/hr IV .Q24H [facility] Ketorolac Tromethamine (Toradol) 30 mg IVP TID PRN PRN Reason: Pain, severe (8-10) Last Admin: 04/24/18 05:35 Dose: 30 mg Ondansetron HCl (Zofran Inj) 4 mg IVP Q6 PRN PRN Reason: Nausea/Vomiting Pantoprazole Sodium (Protonix Ec Tab) 20 mg PO DAILY [facility] Last Admin: 04/23/18 10:04 Dose: 20 mg Sucralfate (Carafate Oral Susp) 1 gm PO DAILY [facility] Last Admin: 04/23/18 11:39 Dose: 1 gm Zolpidem Tartrate (Ambien) 5 mg PO HS PRN PRN Reason: Anxiety Last Admin: 04/23/18 21:40 Dose: 5 mg - Labs Labs: 04/24/18 08:40 04/24/18 08:40 - Constitutional Appears: No Acute Distress - Head Exam Head Exam: NORMAL INSPECTION - Eye Exam Eye Exam: EOMI - ENT Exam ENT Exam: Mucous Membranes Moist - Respiratory Exam Respiratory Exam: Clear to Ausculation Bilateral, NORMAL BREATHING PATTERN - Cardiovascular Exam Cardiovascular Exam: REGULAR RHYTHM, +S1, +S2 - GI/Abdominal Exam GI & Abdominal Exam: Soft, Normal Bowel Sounds. absent: Distended - Extremities Exam Extremities Exam: Normal Capillary Refill (mild pedal edema, cold extremities ) , Normal Inspection, Pedal Edema Additional comments: R thigh tenderness, no skin changes, no edema, erythema, skin intact - Neurological Exam Neurological Exam: Alert, Awake, Oriented x3 - Skin Skin Exam: Dry, Intact, Normal Color, Pallor Assessment and Plan - Assessment and Plan (Free Text) Assessment: Assessment/Plan: 63 YO Female with small cell carcinoma is admitted for neutropenic fever after receiving one course of chemotherapy and a dose of granxi 04/18. Neutropenic fever -likely 2/2 to chemotherapy -remains afebrile -WBC improving 1.4 today -s/p 1 unit of granix 04/23 -Hem/on consulted; res appreciated, continue granix until the wbc goes above 7 -c/w granix daily PE/DVT -CT chest 04/23: multiple small bilayteral acute appearing PE greatest in the lower lobes -U/s of the extremities 04/23: nonocclusive DVT involving 1 of the paired L posterior tibial veins -theraputic Lovenox -c/w lovenox 60mg SC Q12 -continue to monitor respiratory status -O2 via NC @2L Pneumonia, LLL -CT chest 04/23; left lower lobe pneumonia -neutropenic with low wbc -remains afebile -c/w Zosyn D2 Hypocalcemia, Hypomagnesemia -Ca 6.0 today corrected 6.6 -Mg 1.4 -will replace with IV calcium gluconate -IV MgSulfate 1mg Microcytic anemia -likely anemia of chronic disease -hb/hct 9.2/29.1 -stable -cont. to monitor Small Cell carcinoma -on chemotherapy -CT chest 04/23: right upper love mass right right hilar adenopathy -hem/onc on board -hydromorphone and toradol prn pain B/l lower extremity phelps -hydromorphone and toradol prn pain -PT/OT consulted Anxiety -c/w Xanax 1mg PO HLD -c/w Atrovastatin 20mg
[2018-04-24] MEDS: HYDROmorphone 0.5 mg/0.5 ml ISec IVP PRN ×2 (10:18→17:54)
[2018-04-24] MEDS ORDERED: Magnesium Sulfate 1 GM in Dextrose 5% In Water 100 ML IVPB ONE (11:30)
[2018-04-24 13:21] LABS: BANDS 4 % (0-2); EOSINOPHIL 4 % (0-7); LYMPHOCYTE 68 % (20-50); MONOCYTE 16 % (0-10); NEUTROPHIL 8 % (42-75); PLATELET ESTIMATE NORMAL (NORMAL); TOTAL CELLS COUNTED 25
[2018-04-24 13:22] LABS: ANISOCYTOSIS SLIGHT; LARGE PLATELETS PRESENT; OVALOCYTES MODERATE
[2018-04-24] MEDS ORDERED: Enoxaparin 60 mg Syringe SC ONE (21:00)
[2018-04-25] MEDS: HYDROmorphone 0.5 mg/0.5 ml ISec IVP PRN ×3 (00:04→13:38)
[2018-04-25] MEDS: Piperacillin/Tazobact 4.5 GM in Sodium Chloride 0.9% 100 ML IVPB SCH ×4 (04:16→21:52)
[2018-04-25 06:21] LABS: BASO % 0.1 % (0.0-2.0); EOS % 0.4 % (0.0-4.0); HEMOGLOBIN 9.6 g/dL (12.0-16.0); LYMPH # 1.1 K/uL (1.0-4.3); LYMPH % 20.3 % (20.0-40.0); MEAN CELL VOLUME 79.8 fl (81.0-99.0); MEAN CORPUSCULAR HEMOGLOBIN 25.6 pg (27.0-31.0); MEAN PLATELET VOLUME 8.9 fl (7.2-11.7); MONO # 0.2 K/uL (0.0-0.8); MONO % 3.3 % (0.0-10.0); NEUT # 4.1 K/uL (1.8-7.0); NEUT % 75.9 % (50.0-75.0); NRBC % 0.3 % (0.0-0.0); RBC 3.76 Mil/uL (3.80-5.20); RED CELL DISTRIBUTION WIDTH 17.2 % (11.5-14.5); WHITE BLOOD COUNT 5.4 K/uL (4.8-10.8)
[2018-04-25 06:45] LABS: ALB/GLOB RATIO 0.9 (1.0-2.1); ALBUMIN 2.7 g/dL (3.5-5.0); ALT/SGPT 26 U/L (9-52); AST/SGOT 27 U/L (14-36); BLOOD UREA NITROGEN 20 mg/dl (7-17); CALCIUM 6.7 mg/dL (8.4-10.2); GFR AFRICAN-AMERICAN > 60; GFR NON-AFRICAN AMERICAN > 60
[2018-04-25] MEDS ORDERED: CALCIUM GLUCONATE IV SCH (08:30)
[2018-04-25] MEDS ORDERED: SODIUM CHLORIDE 0.9% IV SCH (08:30)
--- NOTE | 2018-04-25 08:59 | CP.PCM.PN ---
Subjective - Date & Time of Evaluation Date of Evaluation: 04/25/18 Time of Evaluation: 08:57 - Subjective Subjective: No acute overnight events. Pt states that her dyspnea is improving. Endorsing pain in her leg, but improving. Objective - Vital Signs/Intake and Output Vital Signs (last 24 hours): Temp Pulse Resp BP Pulse Ox 98.2 F 90 18 113/68 96 04/25/18 07:58 04/25/18 07:58 04/25/18 07:58 04/25/18 07:58 04/25/18 07:58 - Medications Medications: Current Medications Alprazolam (Xanax) 1 mg PO TID PRN PRN Reason: Insomnia Atorvastatin Calcium (Lipitor) 20 mg PO DAILY [facility] Last Admin: 04/24/18 09:30 Dose: 20 mg Calcium Carbonate (Oscal) 500 mg PO BIDWM [facility] Last Admin: 04/24/18 18:02 Dose: 500 mg Docusate Sodium (Colace) 100 mg PO BID [facility] Last Admin: 04/24/18 18:00 Dose: 100 mg Enoxaparin Sodium (Lovenox) 60 mg SC Q12 [facility] PRN Reason: Protocol Last Admin: 04/24/18 21:53 Dose: 60 mg Home Med (Desvenlafaxine Succinate [Pristiq]) 50 mg PO DAILY [facility] Last Admin: 04/24/18 09:31 Dose: 50 mg Hydromorphone HCl (Dilaudid) 0.5 mg IVP Q6 PRN PRN Reason: Pain, severe (8-10) Last Admin: 04/25/18 06:27 Dose: 0.5 mg Piperacillin Sod/Tazobactam (Sod 4.5 gm/ Sodium Chloride) 100 mls @ 100 mls/hr IVPB Q6 [facility] PRN Reason: Protocol Last Admin: 04/25/18 04:16 Dose: 100 mls/hr Calcium Gluconate 1,000 mg/ (Sodium Chloride) 510 mls @ 100 mls/hr IV .Q5H6M [facility] Ketorolac Tromethamine (Toradol) 30 mg IVP TID PRN PRN Reason: Pain, severe (8-10) Last Admin: 04/24/18 05:35 Dose: 30 mg Ondansetron HCl (Zofran Inj) 4 mg IVP Q6 PRN PRN Reason: Nausea/Vomiting Pantoprazole Sodium (Protonix Ec Tab) 20 mg PO DAILY [facility] Last Admin: 04/24/18 09:30 Dose: 20 mg Sucralfate (Carafate Oral Susp) 1 gm PO DAILY [facility] Last Admin: 04/24/18 09:30 Dose: 1 gm Zolpidem Tartrate (Ambien) 5 mg PO HS PRN PRN Reason: Anxiety Last Admin: 04/24/18 22:00 Dose: 5 mg - Labs Labs: 04/25/18 06:00 04/25/18 06:00 - Constitutional Appears: No Acute Distress, Other (NC on 4L) - Head Exam Head Exam: ATRAUMATIC - ENT Exam ENT Exam: Mucous Membranes Moist - Respiratory Exam Respiratory Exam: Clear to Ausculation Bilateral, NORMAL BREATHING PATTERN. absent: Wheezes - Cardiovascular Exam Cardiovascular Exam: REGULAR RHYTHM, +S1, +S2 - GI/Abdominal Exam GI & Abdominal Exam: Soft, Normal Bowel Sounds. absent: Guarding, Tenderness - Extremities Exam Extremities Exam: Normal Inspection, Tenderness (bilateral thigh tenderness, no erythema, edema or skin changes ). 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 Neutropenic fever -likely 2/2 to chemotherapy -remains afebrile -WBC improving 1.4-->5.4 today -Daily granix 04/23- -Hem/on consulted; res appreciated, continue granix until the wbc goes above 7 -c/w granix daily PE/DVT -CT chest 04/23: multiple small bilayteral acute appearing PE greatest in the lower lobes -U/s of the extremities 04/23: nonocclusive DVT involving 1 of the paired L posterior tibial veins -theraputic Lovenox -c/w lovenox 60mg SC Q12 -continue to monitor respiratory status -O2 via NC @2L Pneumonia, LLL -CT chest 04/23; left lower lobe pneumonia -neutropenic with low wbc -remains afebile -c/w Zosyn D3 Hypocalcemia, Hypomagnesemia -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 to monitor Small Cell carcinoma -on chemotherapy -CT chest 04/23: right upper love mass right right hilar adenopathy -hem/onc on board -hydromorphone and toradol prn pain B/l lower extremity phelps -hydromorphone and toradol prn pain -PT/OT consulted Anxiety -c/w Xanax 1mg PO HLD -c/w Atrovastatin 20mg
[2018-04-25] MEDS: Enoxaparin 60 mg Syringe SC SCH ×2 (09:05→21:53)
[2018-04-25] MEDS: Pantoprazole 20 mg EC Tab PO SCH (09:05)
--- NOTE | 2018-04-25 09:58 | CP.PCM.CON ---
History of Present Illness - History of Present Illness History of Present Illness: This 63-year-old female is well-known to me from the outpatient setting. She was initially seen on February 28 when she was referred by her primary medical doctor because of abnormal finding on CT scan of the chest. At that time she claimed a 3 week history of nonproductive cough associated with pain in the right upper anterior and posterior chest with coughing. On further questioning she does admit to some dyspnea on exertion which had been present for approximately 6-7 months. She claimed that her cough which have been present for only last few weeks was nonproductive. She has never experienced any hemoptysis. CT scan of the thorax showed a large mass occupying most of the right upper lobe measuring 8.6 cm x 7.7 cm x 8.5 cm. The PET scan was performed as an outpatient which revealed a hyper metabolic mass in the right upper lobe which abuts the lateral pleural surface, mediastinal surface and is inseparable from the right hilar region. There was metastatic moderately hypermetabolic lymph nodes at the right paratracheal and precarinal space. It was also noted a hypermetabolic soft tissue nodule at the lower aspect of the right flank consistent with metastatic deposit. Also noted was a hypermetabolic metastatic lesion involving the right pedicle of the transverse process and lamina of T3. Also noted was an area of hypermetabolism involving the right lateral wall of the distal esophagus which may represent esophagitis or possibly another primary lesion. She underwent flexible fiberoptic bronchoscopy which revealed a necrotic tumor occluding the right upper lobe bronchus which was biopsied and showed small cell carcinoma. She was referred to oncology and chemotherapy was begun. Past medical history includes bronchial asthma was diagnosed approximately 15 years ago, but she was never given an inhaler. Again 4 years ago she was told that she had wheezing but was not giving inhalation therapy at that time either. 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 She has a history of chronic depression. There is no history of coronary artery disease, congestive heart failure, gallbladder or liver disease , bleeding disorder, renal disease or seizure disorder. Past surgical history includes lumbar spinal fusion. Social history: She is a former cigarette smoker approximately one pack per day for 10 years discontinued 5 years ago. Minimal social alcohol intake only. Denies illicit drug use. Allergies: No known drug or seasonal allergies. Family history: Fatherlung cancer. Motherrenal failure. One sisterlung cancer and esophageal cancer. Review of Systems - Review of Systems All systems: reviewed and no additional remarkable complaints except - Constitutional Constitutional: Anorexia, Fatigue - Respiratory Respiratory: Dyspnea on Exertion, Pain on Inspiration Past Patient History - Tetanus Immunizations Tetanus Immunization: Unknown - Past Medical History & Family History Past Medical History?: Yes - Past Social History Smoking Status: Former Smoker Chewing Tobacco Use: No Cigar Use: No Alcohol: Social Drugs: Denies Home Situation {Lives}: Alone - CARDIAC Hx Cardiac Disorders: No - PULMONARY Hx Bronchitis: Yes Hx Lung Cancer: Yes - NEUROLOGICAL Hx Neurological Disorder: No - HEENT Hx HEENT Problems: No - RENAL Hx Chronic Kidney Disease: No - ENDOCRINE/METABOLIC Hx Endocrine Disorders: No - HEMATOLOGICAL/ONCOLOGICAL Hx Cancer: Yes Hx Chemotherapy: Yes - INTEGUMENTARY Hx Dermatological Problems: No - MUSCULOSKELETAL/RHEUMATOLOGICAL Hx Arthritis: Yes Hx Back Pain: Yes Hx Spinal Stenosis: Yes - GASTROINTESTINAL Hx Gastritis: Yes Hx Gastroesophageal Reflux: Yes - GENITOURINARY/GYNECOLOGICAL Hx Genitourinary Disorders: No - PSYCHIATRIC Hx Anxiety: Yes Hx Depression: Yes - SURGICAL HISTORY Hx Surgeries: Yes Other/Comment: LUMBAR SPINAL FUSION,THROAT POLYPECTOMY AND LUNG BX - ANESTHESIA Hx Anesthesia: Yes Hx Anesthesia Reactions: No Hx Malignant Hyperthermia: No Meds Allergies/Adverse Reactions: Allergies Allergy/AdvReac Type Severity Reaction Status Date / Time No Known Allergies Allergy Verified 04/23/18 01:58 - Medications Medications: Current Medications Alprazolam (Xanax) 1 mg PO TID PRN PRN Reason: Insomnia Last Admin: 04/25/18 09:03 Dose: 1 mg Atorvastatin Calcium (Lipitor) 20 mg PO DAILY [facility] Last Admin: 04/25/18 09:05 Dose: 20 mg Calcium Carbonate (Oscal) 500 mg PO BIDWM [facility] Last Admin: 04/25/18 09:05 Dose: 500 mg Docusate Sodium (Colace) 100 mg PO BID [facility] Last Admin: 04/25/18 09:05 Dose: 100 mg Enoxaparin Sodium (Lovenox) 60 mg SC Q12 [facility] PRN Reason: Protocol Last Admin: 04/25/18 09:05 Dose: 60 mg Home Med (Desvenlafaxine Succinate [Pristiq]) 50 mg PO DAILY [facility] Last Admin: 04/25/18 09:05 Dose: 50 mg Hydromorphone HCl (Dilaudid) 0.5 mg IVP Q6 PRN PRN Reason: Pain, severe (8-10) Last Admin: 04/25/18 06:27 Dose: 0.5 mg Piperacillin Sod/Tazobactam (Sod 4.5 gm/ Sodium Chloride) 100 mls @ 100 mls/hr IVPB Q6 [facility] PRN Reason: Protocol Last Admin: 04/25/18 09:03 Dose: 100 mls/hr Calcium Gluconate 1,000 mg/ (Sodium Chloride) 510 mls @ 100 mls/hr IV .Q5H6M [facility] Stop: 04/25/18 13:35 Ketorolac Tromethamine (Toradol) 30 mg IVP TID PRN PRN Reason: Pain, severe (8-10) Last Admin: 04/24/18 05:35 Dose: 30 mg Ondansetron HCl (Zofran Inj) 4 mg IVP Q6 PRN PRN Reason: Nausea/Vomiting Pantoprazole Sodium (Protonix Ec Tab) 20 mg PO DAILY [facility] Last Admin: 04/25/18 09:05 Dose: 20 mg Sucralfate (Carafate Oral Susp) 1 gm PO DAILY [facility] Last Admin: 04/24/18 09:30 Dose: 1 gm Zolpidem Tartrate (Ambien) 5 mg PO HS PRN PRN Reason: Anxiety Last Admin: 04/24/18 22:00 Dose: 5 mg Physical Exam - Additional Findings Additional findings: She appears comfortable lying in bed eating breakfast. Well-nourished and well-developed and in no distress at the present time. There was no coughing or shortness of breath during the examination. Pharynx is pink and the mucous membranes are moist. Conjunctivae are pink and there is no scleral icterus. Nasal passages are patent bilaterally. No bleeding. The neck is supple and trachea is slightly deviated to the right. No neck vein distention or carotid bruit. No palpable thyromegaly. There is some degree of dullness on percussion of the right upper lobe. Breath sounds are present bilaterally with some bronchial character noted in the right upper lobe anteriorly. Few dry rales are heard in the right lower lobe. No audible wheezing. No bronchial breathing or egophony in any other areas of the lungs. The heart sounds are well heard the rhythm is regular without murmur. Abdomen is soft and nontender with normal bowel sounds. No HSM. Trace dependent edema is noted at the ankles. No cyanosis. No calf tenderness. Strength in the lower extremities is present equally but diminished. Results - Vital Signs Recent Vital Signs: Last Vital Signs Temp 98.2 F 04/25/18 07:58 Pulse 90 04/25/18 07:58 Resp 18 04/25/18 07:58 BP 113/68 04/25/18 07:58 Pulse Ox 96 04/25/18 07:58 - Labs Result Diagrams: 04/25/18 06:00 04/25/18 06:00 Labs: Laboratory Results - last 24 hr 04/24/18 04/24/18 04/25/18 08:40 09:45 06:00 WBC 1.4 L* D 5.4 D RBC 3.63 L 3.76 L Hgb 9.2 L 9.6 L Hct 29.1 L 30.0 L MCV 80.0 L 79.8 L MCH 25.3 L 25.6 L MCHC 31.6 L 32.0 L RDW 16.9 H 17.2 H Plt Count 157 204 MPV 8.9 Neut % (Auto) 75.9 H Lymph % (Auto) 20.3 [place] % (Auto) 3.3 Eos % (Auto) 0.4 Baso % (Auto) 0.1 Neut # (Auto) 4.1 Lymph # (Auto) 1.1 [place] # (Auto) 0.2 Eos # (Auto) 0.0 Baso # (Auto) 0.0 Neutrophils % (Manual) 8 L Band Neutrophils % 4 H Lymphocytes % (Manual) 68 H Monocytes % (Manual) 16 H Eosinophils % (Manual) 4 Platelet Estimate Normal Large Platelets Present Anisocytosis (manual) Slight Macrocytosis (manual) Slight Ovalocytes Moderate Sodium Potassium Chloride Carbon Dioxide Anion Gap BUN Creatinine Est GFR ( Amer) Est GFR (Non-Af Amer) Random Glucose Calcium Magnesium 1.4 L Total Bilirubin AST ALT Alkaline Phosphatase Total Protein Albumin Globulin Albumin/Globulin Ratio 04/25/18 06:00 WBC RBC Hgb Hct MCV MCH MCHC RDW Plt Count MPV Neut % (Auto) Lymph % (Auto) [place] % (Auto) Eos % (Auto) Baso % (Auto) Neut # (Auto) Lymph # (Auto) [place] # (Auto) Eos # (Auto) Baso # (Auto) Neutrophils % (Manual) Band Neutrophils % Lymphocytes % (Manual) Monocytes % (Manual) Eosinophils % (Manual) Platelet Estimate Large Platelets Anisocytosis (manual) Macrocytosis (manual) Ovalocytes Sodium 138 Potassium 4.4 Chloride 111 H Carbon Dioxide 17 L Anion Gap 14 BUN 20 H Creatinine 0.9 Est GFR ( Amer) > 60 Est GFR (Non-Af Amer) > 60 Random Glucose 92 Calcium 6.7 L Magnesium 2.0 Total Bilirubin 0.9 AST 27 ALT 26 Alkaline Phosphatase 87 Total Protein 5.8 L Albumin 2.7 L Globulin 3.1 Albumin/Globulin Ratio 0.9 L Assessment & Plan (1) Deep vein thrombosis (DVT) Status: Acute Priority: High (2) Acute pulmonary embolism Status: Acute Priority: High (3) Small cell carcinoma of upper lobe of right lung Status: Chronic Priority: High Comment: There appears to be metastatic disease to the spine at T3 as well as a soft tissue nodule in the lower aspect of the right flank. Probable metastatic right paratracheal nodes. - Assessment and Plan (Free Text) Plan: Agree with current management. We'll follow with you, thank you. - Date & Time Date: 04/25/18 Time: 10:07
--- NOTE | 2018-04-25 10:11 | CP.PCM.PN ---
Subjective - Date & Time of Evaluation Date of Evaluation: 04/25/18 Time of Evaluation: 10:06 - Subjective Subjective: Pt looks a little, less short of breath, and afebrile. Her WBC count has gone up to 5.4, so will d/c the reverse isolation, but will continue the granix a little longer. The pain she had in her right hip and femur is much lesser, bur now she c/o pain in her left leg, She is to have a bone scan done today Objective - Vital Signs/Intake and Output Vital Signs (last 24 hours): Temp Pulse Resp BP Pulse Ox 98.2 F 90 18 113/68 96 04/25/18 07:58 04/25/18 07:58 04/25/18 07:58 04/25/18 07:58 04/25/18 07:58 - Medications Medications: Current Medications Alprazolam (Xanax) 1 mg PO TID PRN PRN Reason: Insomnia Last Admin: 04/25/18 09:03 Dose: 1 mg Atorvastatin Calcium (Lipitor) 20 mg PO DAILY [facility] Last Admin: 04/25/18 09:05 Dose: 20 mg Calcium Carbonate (Oscal) 500 mg PO BIDWM [facility] Last Admin: 04/25/18 09:05 Dose: 500 mg Docusate Sodium (Colace) 100 mg PO BID [facility] Last Admin: 04/25/18 09:05 Dose: 100 mg Enoxaparin Sodium (Lovenox) 60 mg SC Q12 [facility] PRN Reason: Protocol Last Admin: 04/25/18 09:05 Dose: 60 mg Home Med (Desvenlafaxine Succinate [Pristiq]) 50 mg PO DAILY [facility] Last Admin: 04/25/18 09:05 Dose: 50 mg Hydromorphone HCl (Dilaudid) 0.5 mg IVP Q6 PRN PRN Reason: Pain, severe (8-10) Last Admin: 04/25/18 06:27 Dose: 0.5 mg Piperacillin Sod/Tazobactam (Sod 4.5 gm/ Sodium Chloride) 100 mls @ 100 mls/hr IVPB Q6 [facility] PRN Reason: Protocol Last Admin: 04/25/18 09:03 Dose: 100 mls/hr Calcium Gluconate 1,000 mg/ (Sodium Chloride) 510 mls @ 100 mls/hr IV .Q5H6M [facility] Stop: 04/25/18 13:35 Ketorolac Tromethamine (Toradol) 30 mg IVP TID PRN PRN Reason: Pain, severe (8-10) Last Admin: 04/24/18 05:35 Dose: 30 mg Ondansetron HCl (Zofran Inj) 4 mg IVP Q6 PRN PRN Reason: Nausea/Vomiting Pantoprazole Sodium (Protonix Ec Tab) 20 mg PO DAILY [facility] Last Admin: 04/25/18 09:05 Dose: 20 mg Sucralfate (Carafate Oral Susp) 1 gm PO DAILY [facility] Last Admin: 04/24/18 09:30 Dose: 1 gm Zolpidem Tartrate (Ambien) 5 mg PO HS PRN PRN Reason: Anxiety Last Admin: 04/24/18 22:00 Dose: 5 mg - Labs Labs: 04/25/18 06:00 04/25/18 06:00
[2018-04-25] MEDS: Sucralfate 1 gm/10 ml Oral Susp UD PO SCH (10:26)
--- NOTE | 2018-04-25 11:39 | CARD ---
APPROVED REPORT EKG Measurement Heart [id number] IL [id number] <Conclusion> Sinus rhythm with short IL Left axis deviation Nonspecific T wave abnormality Prolonged QT Abnormal ECG
[2018-04-26] MEDS: Piperacillin/Tazobact 4.5 GM in Sodium Chloride 0.9% 100 ML IVPB SCH ×4 (03:03→21:48)
--- NOTE | 2018-04-26 07:18 | CP.PCM.PN ---
Subjective - Date & Time of Evaluation Date of Evaluation: 04/26/18 Time of Evaluation: 07:18 - Subjective Subjective: No acute overnight events. Pt states that she feels well, her pain in her thigh has improved, pain L>R. Denies chest pain, headache, n/v, chills fever. Objective - Vital Signs/Intake and Output Vital Signs (last 24 hours): Temp Pulse Resp BP Pulse Ox 99.6 F 102 H 18 117/68 95 04/26/18 01:00 04/26/18 01:00 04/26/18 01:00 04/26/18 01:00 04/26/18 01:00 - Medications Medications: Current Medications Alprazolam (Xanax) 1 mg PO TID PRN PRN Reason: Insomnia Last Admin: 04/25/18 09:03 Dose: 1 mg Atorvastatin Calcium (Lipitor) 20 mg PO DAILY [facility] Last Admin: 04/25/18 09:05 Dose: 20 mg Calcium Carbonate (Oscal) 500 mg PO BIDWM [facility] Last Admin: 04/25/18 16:05 Dose: 500 mg Docusate Sodium (Colace) 100 mg PO BID [facility] Last Admin: 04/25/18 16:05 Dose: 100 mg Enoxaparin Sodium (Lovenox) 60 mg SC Q12 [facility] PRN Reason: Protocol Last Admin: 04/25/18 21:53 Dose: 60 mg Home Med (Desvenlafaxine Succinate [Pristiq]) 50 mg PO DAILY [facility] Last Admin: 04/25/18 09:05 Dose: 50 mg Piperacillin Sod/Tazobactam (Sod 4.5 gm/ Sodium Chloride) 100 mls @ 100 mls/hr IVPB Q6 [facility] PRN Reason: Protocol Last Admin: 04/26/18 03:03 Dose: 100 mls/hr Ketorolac Tromethamine (Toradol) 30 mg IVP TID PRN PRN Reason: Pain, severe (8-10) Last Admin: 04/26/18 00:41 Dose: 30 mg Lidocaine (Lidoderm) 2 ea TD DAILY [facility] Morphine Sulfate (Morphine) 4 mg IVP Q6 PRN PRN Reason: Pain, severe (8-10) Last Admin: 04/26/18 03:02 Dose: 4 mg Ondansetron HCl (Zofran Inj) 4 mg IVP Q6 PRN PRN Reason: Nausea/Vomiting Pantoprazole Sodium (Protonix Ec Tab) 20 mg PO DAILY [facility] Last Admin: 04/25/18 09:05 Dose: 20 mg Sucralfate (Carafate Oral Susp) 1 gm PO DAILY [facility] Last Admin: 04/25/18 10:26 Dose: 1 gm Zolpidem Tartrate (Ambien) 5 mg PO HS PRN PRN Reason: Anxiety Last Admin: 04/25/18 22:37 Dose: 5 mg - Labs Labs: 04/25/18 06:00 04/25/18 06:00 - Constitutional Appears: No Acute Distress - Head Exam Head Exam: NORMAL INSPECTION - Eye Exam Eye Exam: EOMI - ENT Exam ENT Exam: Mucous Membranes Moist - Respiratory Exam Respiratory Exam: Clear to Ausculation Bilateral, NORMAL BREATHING PATTERN. absent: Wheezes - Cardiovascular Exam Cardiovascular Exam: REGULAR RHYTHM, +S1, +S2 - GI/Abdominal Exam GI & Abdominal Exam: Soft, Normal Bowel Sounds. absent: Tenderness - Extremities Exam Extremities Exam: Normal Inspection. absent: Calf Tenderness Additional comments: Redness noted in her L inner thigh and some noted in the R inner thigh. Pt states that she has been itching the area - Neurological Exam Neurological Exam: Alert, Awake, Oriented x3 - Psychiatric Exam Psychiatric exam: Normal Affect, Normal Mood - Skin Skin Exam: Dry, Intact Assessment and Plan - Assessment and Plan (Free Text) Assessment: Assessment/Plan: 63 YO Female with small cell carcinoma is admitted for neutropenic fever after receiving one course of chemotherapy and a dose of granix 04/18. Neutropenic fever -likely 2/2 to chemotherapy -remains afebrile -WBC improving 1.4-->5.4-->16.3 today -Daily granix 04/23-04/25 -Hem/on consulted; res appreciated, continue granix until the wbc goes above 7 -will d/c granix today -Zosyn D4 -will consult ID, follow up recs PE/DVT -CT chest 04/23: multiple small bilayteral acute appearing PE greatest in the lower lobes -U/s of the extremities 04/23: nonocclusive DVT involving 1 of the paired L posterior tibial veins -theraputic Lovenox -c/w lovenox 60mg SC Q12 -continue to monitor respiratory status -O2 via NC @2L -Per Dr. Saldaña will d/c pt will Eliquis for 6 months Small Cell carcinoma -on chemotherapy -CT chest 04/23: right upper love mass right right hilar adenopathy -PET scan 02/25/18: hypermetabolic mass in RU lobe; hypermetabolic soft tissue nodule right flank region, hypermetabolic lesion right pedicle, transverse process and lamina T3. Focal hypermetabolism involving the right lateral wall of distal esophagus. 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 to monitor B/l lower extremity phelps -hydromorphone and toradol prn pain -PT/OT consulted Anxiety -c/w Xanax 1mg PO HLD -c/w Atrovastatin 20mg
--- NOTE | 2018-04-26 09:11 | CP.PCM.PN ---
Subjective - Date & Time of Evaluation Date of Evaluation: 04/26/18 Time of Evaluation: 09:11 - Subjective Subjective: The patient is seen on rounds this morning, lying in bed stating that she is feeling somewhat better than the days prior. She continues to have some pain in the lower extremities, more so left than right, and more so thigh and calf. She does feel that she has slightly more strength in the legs and is able to lift them off the bed independently. Her vital signs have remained stable and she has been afebrile. Her WBCs have increased to 16.3 today. Her hemoglobin remained stable at 9.4 g. A Pro- calcitonin level which was done on the is 8.10. She has been receiving a single antibiotic in the form of Zosyn admission. Infectious disease consult has been placed today. Her urine analysis appeared unremarkable. There was complete occlusion of the right upper lobe bronchus seen on bronchoscopy done March 12, with likely post obstructive pneumonitis. Bronchial washings at that time were positive for Enterobacter which was sensitive to Zosyn. There is also a new finding of left lower lobe pneumonia on the current imaging. She is able to sit up in bed with some assistance and has tenderness to palpation of the lower spine. There is dullness to percussion in the right upper lobe area with some harsh breath sounds and evidence of bronchial breathing. No audible wheezing. Few scattered rhonchi are heard in the right lower lobe. The neck is supple and trachea does appear to remain midline. We'll maintain current regimen and await input from infectious disease. Continue current anticoagulation and switch to oral factor X inhibitor as mentioned by oncology. Bone scan has been requested and she has been injected this morning. Objective - Vital Signs/Intake and Output Vital Signs (last 24 hours): Temp Pulse Resp BP Pulse Ox 98.0 F 94 H 18 111/68 94 L 04/26/18 08:03 04/26/18 08:03 04/26/18 08:03 04/26/18 08:03 04/26/18 08:03 - Medications Medications: Current Medications Alprazolam (Xanax) 1 mg PO TID PRN PRN Reason: Insomnia Last Admin: 04/25/18 09:03 Dose: 1 mg Atorvastatin Calcium (Lipitor) 20 mg PO DAILY [facility] Last Admin: 04/25/18 09:05 Dose: 20 mg Calcium Carbonate (Oscal) 500 mg PO BIDWM [facility] Last Admin: 04/25/18 16:05 Dose: 500 mg Docusate Sodium (Colace) 100 mg PO BID [facility] Last Admin: 04/25/18 16:05 Dose: 100 mg Enoxaparin Sodium (Lovenox) 60 mg SC Q12 [facility] PRN Reason: Protocol Last Admin: 04/25/18 21:53 Dose: 60 mg Home Med (Desvenlafaxine Succinate [Pristiq]) 50 mg PO DAILY [facility] Last Admin: 04/25/18 09:05 Dose: 50 mg Piperacillin Sod/Tazobactam (Sod 4.5 gm/ Sodium Chloride) 100 mls @ 100 mls/hr IVPB Q6 [facility] PRN Reason: Protocol Last Admin: 04/26/18 03:03 Dose: 100 mls/hr Ketorolac Tromethamine (Toradol) 30 mg IVP TID PRN PRN Reason: Pain, severe (8-10) Last Admin: 04/26/18 00:41 Dose: 30 mg Lidocaine (Lidoderm) 2 ea TD DAILY [facility] Morphine Sulfate (Morphine) 4 mg IVP Q6 PRN PRN Reason: Pain, severe (8-10) Last Admin: 04/26/18 03:02 Dose: 4 mg Ondansetron HCl (Zofran Inj) 4 mg IVP Q6 PRN PRN Reason: Nausea/Vomiting Pantoprazole Sodium (Protonix Ec Tab) 20 mg PO DAILY [facility] Last Admin: 04/25/18 09:05 Dose: 20 mg Sucralfate (Carafate Oral Susp) 1 gm PO DAILY [facility] Last Admin: 04/25/18 10:26 Dose: 1 gm Zolpidem Tartrate (Ambien) 5 mg PO HS PRN PRN Reason: Anxiety Last Admin: 04/25/18 22:37 Dose: 5 mg - Labs Labs: 04/25/18 06:00 04/25/18 06:00 Assessment and Plan (1) Deep vein thrombosis (DVT) Status: Acute (2) Acute pulmonary embolism Status: Acute (3) 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
[2018-04-26] MEDS: Lidocaine 5% Patch TD SCH (09:16)
[2018-04-26] MEDS: Enoxaparin 60 mg Syringe SC SCH ×2 (09:16→21:51)
[2018-04-26] MEDS: Pantoprazole 20 mg EC Tab PO SCH (09:17)
[2018-04-26 10:11] LABS: BASO % 0.1 % (0.0-2.0); EOS % 0.1 % (0.0-4.0); HEMOGLOBIN 9.4 g/dL (12.0-16.0); LYMPH # 1.5 K/uL (1.0-4.3); LYMPH % 9.1 % (20.0-40.0); MEAN CELL VOLUME 77.7 fl (81.0-99.0); MEAN CORPUSCULAR HGB CONC 32.2 g/dL (33.0-37.0); MONO # 0.4 K/uL (0.0-0.8); MONO % 2.4 % (0.0-10.0); NEUT # 14.4 K/uL (1.8-7.0); NEUT % 88.3 % (50.0-75.0); PLATELET COUNT 208 K/uL (130-400); RBC 3.76 Mil/uL (3.80-5.20); RED CELL DISTRIBUTION WIDTH 16.8 % (11.5-14.5); WHITE BLOOD COUNT 16.3 K/uL (4.8-10.8)
--- NOTE | 2018-04-26 10:19 | CP.PCM.PN ---
Subjective - Date & Time of Evaluation Date of Evaluation: 04/26/18 Time of Evaluation: 10:13 - Subjective Subjective: Pt is feeling better, even the hip and leg pain is better. Her wbc has been going up, and will stop the granix once the wbc goes above 7.0. She should continue the lovenox and then switch to eliquis. Antibiotics will be continued per ID. Objective - Vital Signs/Intake and Output Vital Signs (last 24 hours): Temp Pulse Resp BP Pulse Ox 98.0 F 94 H 18 111/68 94 L 04/26/18 08:03 04/26/18 08:03 04/26/18 08:03 04/26/18 08:03 04/26/18 08:03 - Medications Medications: Current Medications Alprazolam (Xanax) 1 mg PO TID PRN PRN Reason: Insomnia Last Admin: 04/25/18 09:03 Dose: 1 mg Atorvastatin Calcium (Lipitor) 20 mg PO DAILY [facility] Last Admin: 04/26/18 09:16 Dose: 20 mg Calcium Carbonate (Oscal) 500 mg PO BIDWM [facility] Last Admin: 04/26/18 09:16 Dose: 500 mg Docusate Sodium (Colace) 100 mg PO BID [facility] Last Admin: 04/26/18 09:15 Dose: 100 mg Enoxaparin Sodium (Lovenox) 60 mg SC Q12 [facility] PRN Reason: Protocol Last Admin: 04/26/18 09:16 Dose: 60 mg Home Med (Desvenlafaxine Succinate [Pristiq]) 50 mg PO DAILY [facility] Last Admin: 04/26/18 09:15 Dose: 50 mg Piperacillin Sod/Tazobactam (Sod 4.5 gm/ Sodium Chloride) 100 mls @ 100 mls/hr IVPB Q6 [facility] PRN Reason: Protocol Last Admin: 04/26/18 09:14 Dose: 100 mls/hr Ketorolac Tromethamine (Toradol) 30 mg IVP TID PRN PRN Reason: Pain, severe (8-10) Last Admin: 04/26/18 00:41 Dose: 30 mg Lidocaine (Lidoderm) 2 ea TD DAILY [facility] Last Admin: 04/26/18 09:16 Dose: 2 ea Morphine Sulfate (Morphine) 4 mg IVP Q6 PRN PRN Reason: Pain, severe (8-10) Last Admin: 04/26/18 03:02 Dose: 4 mg Ondansetron HCl (Zofran Inj) 4 mg IVP Q6 PRN PRN Reason: Nausea/Vomiting Pantoprazole Sodium (Protonix Ec Tab) 20 mg PO DAILY [facility] Last Admin: 04/26/18 09:17 Dose: 20 mg Sucralfate (Carafate Oral Susp) 1 gm PO DAILY@1100 [facility] Zolpidem Tartrate (Ambien) 5 mg PO HS PRN PRN Reason: Anxiety Last Admin: 04/25/18 22:37 Dose: 5 mg - Labs Labs: 04/25/18 06:00 04/25/18 06:00
[2018-04-26 10:56] LABS: BLOOD UREA NITROGEN 13 mg/dl (7-17); CALCIUM 6.9 mg/dL (8.4-10.2); GFR AFRICAN-AMERICAN > 60; GFR NON-AFRICAN AMERICAN > 60
--- NOTE | 2018-04-26 11:01 | CP.PCM.CON ---
History of Present Illness - History of Present Illness History of Present Illness: Infectious Disease Consultation Note- Asked to see this patient at the request of famil;y practice team for neutropenic fever. HPI- Patient is a 63 year old female with PMH of HLD, GERD, who was recently diagnosed with lung cancer 2 months ago and is s/p 1 dose of CTX last week who was admitted with c/o fever 3 days ago and pain in her legs. patient denies any ASHBY . she denies any abd. pain. denies any dysurea or diarrhea. denies any chest pain. denies any cough or sob . denies any injury to her leg. she was found to be neutropenic on admission and had fevers on admission . was started on IV zosyn as per the primary team . had LE dopplers for the leg pain and was found to have left LE DVT. had chest Ct which ws reported as small subsegemntal PE as per report, and LLL pneumonia. I'm asked today to see the patient today and help with antibiotic management. patient is s/p Granix by her oncologist and is no longer neutropenic and is afebrile as well and states feels better today. PMD: Dr. Oviedo Boardmarker: Dr. Burgess Oncologist: as per [facility]: Dr. Vital PMHx: Lung ca, anxiety, depression, HLD, and GERD Allergies: NKDA Surgical Hx: spinal effusion SocialHx: former smoker, stopped 5 years ago, denies etoh and illicit drugs Review of Systems - Review of Systems Review of Systems: ROS- had fever on admission but has resolved, denies any ASHBY, denies any sob now, denies any chest pain, denies any abd. pain, had nausea post chemo but not now, denies any vomiting, denies any diarrhea, denies any dysurea pain in B/L LE mostly on the left with slight redness in the left upper thigh region. Past Patient History - Tetanus Immunizations Tetanus Immunization: Unknown - Past Medical History & Family History Past Medical History?: Yes - Past Social History Smoking Status: Former Smoker Chewing Tobacco Use: No Cigar Use: No Alcohol: Social Drugs: Denies Home Situation {Lives}: Alone - CARDIAC Hx Cardiac Disorders: No - PULMONARY Hx Bronchitis: Yes Hx Lung Cancer: Yes - NEUROLOGICAL Hx Neurological Disorder: No - HEENT Hx HEENT Problems: No - RENAL Hx Chronic Kidney Disease: No - ENDOCRINE/METABOLIC Hx Endocrine Disorders: No - HEMATOLOGICAL/ONCOLOGICAL Hx Cancer: Yes Hx Chemotherapy: Yes - INTEGUMENTARY Hx Dermatological Problems: No - MUSCULOSKELETAL/RHEUMATOLOGICAL Hx Arthritis: Yes Hx Back Pain: Yes Hx Spinal Stenosis: Yes - GASTROINTESTINAL Hx Gastritis: Yes Hx Gastroesophageal Reflux: Yes - GENITOURINARY/GYNECOLOGICAL Hx Genitourinary Disorders: No - PSYCHIATRIC Hx Anxiety: Yes Hx Depression: Yes - SURGICAL HISTORY Hx Surgeries: Yes Other/Comment: LUMBAR SPINAL FUSION,THROAT POLYPECTOMY AND LUNG BX - ANESTHESIA Hx Anesthesia: Yes Hx Anesthesia Reactions: No Hx Malignant Hyperthermia: No Meds Allergies/Adverse Reactions: Allergies Allergy/AdvReac Type Severity Reaction Status Date / Time No Known Allergies Allergy Verified 04/23/18 01:58 - Medications Medications: Current Medications Alprazolam (Xanax) 1 mg PO TID PRN PRN Reason: Insomnia Last Admin: 04/25/18 09:03 Dose: 1 mg Atorvastatin Calcium (Lipitor) 20 mg PO DAILY [facility] Last Admin: 04/26/18 09:16 Dose: 20 mg Calcium Carbonate (Oscal) 500 mg PO BIDWM [facility] Last Admin: 04/26/18 09:16 Dose: 500 mg Docusate Sodium (Colace) 100 mg PO BID [facility] Last Admin: 04/26/18 09:15 Dose: 100 mg Enoxaparin Sodium (Lovenox) 60 mg SC Q12 KULDEEP PRN Reason: Protocol Last Admin: 04/26/18 09:16 Dose: 60 mg Home Med (Desvenlafaxine Succinate [Pristiq]) 50 mg PO DAILY [facility] Last Admin: 04/26/18 09:15 Dose: 50 mg Piperacillin Sod/Tazobactam (Sod 4.5 gm/ Sodium Chloride) 100 mls @ 100 mls/hr IVPB Q6 KULDEEP PRN Reason: Protocol Last Admin: 04/26/18 09:14 Dose: 100 mls/hr Ketorolac Tromethamine (Toradol) 30 mg IVP TID PRN PRN Reason: Pain, severe (8-10) Last Admin: 04/26/18 00:41 Dose: 30 mg Lidocaine (Lidoderm) 2 ea TD DAILY [facility] Last Admin: 04/26/18 09:16 Dose: 2 ea Morphine Sulfate (Morphine) 4 mg IVP Q6 PRN PRN Reason: Pain, severe (8-10) Last Admin: 04/26/18 03:02 Dose: 4 mg Ondansetron HCl (Zofran Inj) 4 mg IVP Q6 PRN PRN Reason: Nausea/Vomiting Pantoprazole Sodium (Protonix Ec Tab) 20 mg PO DAILY [facility] Last Admin: 04/26/18 09:17 Dose: 20 mg Sucralfate (Carafate Oral Susp) 1 gm PO DAILY@1100 [facility] Zolpidem Tartrate (Ambien) 5 mg PO HS PRN PRN Reason: Anxiety Last Admin: 04/25/18 22:37 Dose: 5 mg Physical Exam - Constitutional Appears: No Acute Distress - Head Exam Head Exam: ATRAUMATIC - Eye Exam Eye Exam: EOMI, PERRL - ENT Exam ENT Exam: Normal Oropharynx - Respiratory Exam Respiratory Exam: NORMAL BREATHING PATTERN Additional comments: no wheezing decreased breath sounds on the right upper lung region and left base - Cardiovascular Exam Cardiovascular Exam: RRR, +S1, +S2 - GI/Abdominal Exam GI & Abdominal Exam: Normal Bowel Sounds, Soft Additional comments: NT, ND - Extremities Exam Additional comments: no edema or erythema B/L LE medial left upper thigh region with erythema , no edema - Neurological Exam Neurological exam: Alert, Oriented x3 - Additional Findings Additional findings: left upper chest port site clean/ dry, no erythema Results - Vital Signs Recent Vital Signs: Last Vital Signs Temp 98.0 F 04/26/18 08:03 Pulse 94 H 04/26/18 08:03 Resp 18 04/26/18 08:03 BP 111/68 04/26/18 08:03 Pulse Ox 94 L 04/26/18 08:03 - Labs Result Diagrams: 04/26/18 09:45 04/26/18 09:45 Labs: Laboratory Results - last 24 hr 04/26/18 04/26/18 09:45 09:45 WBC 16.3 H D RBC 3.76 L Hgb 9.4 L Hct 29.2 L MCV 77.7 L D MCH 25.0 L MCHC 32.2 L RDW 16.8 H Plt Count 208 MPV 8.0 Neut % (Auto) 88.3 H Lymph % (Auto) 9.1 L [place] % (Auto) 2.4 Eos % (Auto) 0.1 Baso % (Auto) 0.1 Neut # (Auto) 14.4 H Lymph # (Auto) 1.5 [place] # (Auto) 0.4 Eos # (Auto) 0.0 Baso # (Auto) 0.0 Sodium 138 Potassium 3.2 L Chloride 107 Carbon Dioxide 24 Anion Gap 10 BUN 13 Creatinine 0.9 Est GFR ( Amer) > 60 Est GFR (Non-Af Amer) > 60 Random Glucose 125 H Calcium 6.9 L Laboratory Results - last 72 hr 04/23/18 04/23/18 04/24/18 10:25 17:56 08:40 WBC 1.4 L* D RBC 3.63 L Hgb 9.2 L Hct 29.1 L MCV 80.0 L MCH 25.3 L MCHC 31.6 L RDW 16.9 H Plt Count 157 MPV Neut % (Auto) Lymph % (Auto) [place] % (Auto) Eos % (Auto) Baso % (Auto) Neut # (Auto) Lymph # (Auto) [place] # (Auto) Eos # (Auto) Baso # (Auto) Neutrophils % (Manual) 8 L Band Neutrophils % 4 H Lymphocytes % (Manual) 68 H Monocytes % (Manual) 16 H Eosinophils % (Manual) 4 Platelet Estimate Normal Large Platelets Present Anisocytosis (manual) Slight Macrocytosis (manual) Slight Ovalocytes Moderate Sodium Potassium Chloride Carbon Dioxide Anion Gap BUN Creatinine Est GFR ( Amer) Est GFR (Non-Af Amer) Random Glucose Calcium Magnesium Total Bilirubin AST ALT Alkaline Phosphatase Total Protein Albumin Globulin Albumin/Globulin Ratio Procalcitonin 8.10 H Urine Color Yellow Urine Clarity Cloudy Urine pH 5.0 Ur Specific [place] 1.019 Urine Protein 30 Urine Glucose (UA) Neg Urine Ketones Negative Urine Blood Small Urine Nitrate Negative Urine Bilirubin Negative Urine Urobilinogen 0.2-1.0 Ur Leukocyte Esterase Neg Urine RBC (Auto) 12 H Urine Microscopic WBC 5 Ur Squamous Epith Cells 2 04/24/18 04/24/18 04/25/18 08:40 09:45 06:00 WBC 5.4 D RBC 3.76 L Hgb 9.6 L Hct 30.0 L MCV 79.8 L MCH 25.6 L MCHC 32.0 L RDW 17.2 H Plt Count 204 MPV 8.9 Neut % (Auto) 75.9 H Lymph % (Auto) 20.3 [place] % (Auto) 3.3 Eos % (Auto) 0.4 Baso % (Auto) 0.1 Neut # (Auto) 4.1 Lymph # (Auto) 1.1 [place] # (Auto) 0.2 Eos # (Auto) 0.0 Baso # (Auto) 0.0 Neutrophils % (Manual) Band Neutrophils % Lymphocytes % (Manual) Monocytes % (Manual) Eosinophils % (Manual) Platelet Estimate Large Platelets Anisocytosis (manual) Macrocytosis (manual) Ovalocytes Sodium 140 Potassium 4.2 Chloride 109 H Carbon Dioxide 15 L Anion Gap 20 BUN 22 H Creatinine 1.2 Est GFR ( Amer) 55 Est GFR (Non-Af Amer) 46 Random Glucose 102 Calcium 6.0 L* Magnesium 1.4 L Total Bilirubin 0.8 AST 38 H D ALT 28 Alkaline Phosphatase 94 Total Protein 6.0 L Albumin 2.8 L Globulin 3.2 Albumin/Globulin Ratio 0.9 L Procalcitonin Urine Color Urine Clarity Urine pH Ur Specific [place] Urine Protein Urine Glucose (UA) Urine Ketones Urine Blood Urine Nitrate Urine Bilirubin Urine Urobilinogen Ur Leukocyte Esterase Urine RBC (Auto) Urine Microscopic WBC Ur Squamous Epith Cells 04/25/18 04/26/18 04/26/18 06:00 09:45 09:45 WBC 16.3 H D RBC 3.76 L Hgb 9.4 L Hct 29.2 L MCV 77.7 L D MCH 25.0 L MCHC 32.2 L RDW 16.8 H Plt Count 208 MPV 8.0 Neut % (Auto) 88.3 H Lymph % (Auto) 9.1 L [place] % (Auto) 2.4 Eos % (Auto) 0.1 Baso % (Auto) 0.1 Neut # (Auto) 14.4 H Lymph # (Auto) 1.5 [place] # (Auto) 0.4 Eos # (Auto) 0.0 Baso # (Auto) 0.0 Neutrophils % (Manual) Band Neutrophils % Lymphocytes % (Manual) Monocytes % (Manual) Eosinophils % (Manual) Platelet Estimate Large Platelets Anisocytosis (manual) Macrocytosis (manual) Ovalocytes Sodium 138 138 Potassium 4.4 3.2 L Chloride 111 H 107 Carbon Dioxide 17 L 24 Anion Gap 14 10 BUN 20 H 13 Creatinine 0.9 0.9 Est GFR ( Amer) > 60 > 60 Est GFR (Non-Af Amer) > 60 > 60 Random Glucose 92 125 H Calcium 6.7 L 6.9 L Magnesium 2.0 Total Bilirubin 0.9 AST 27 ALT 26 Alkaline Phosphatase 87 Total Protein 5.8 L Albumin 2.7 L Globulin 3.1 Albumin/Globulin Ratio 0.9 L Procalcitonin Urine Color Urine Clarity Urine pH Ur Specific [place] Urine Protein Urine Glucose (UA) Urine Ketones Urine Blood Urine Nitrate Urine Bilirubin Urine Urobilinogen Ur Leukocyte Esterase Urine RBC (Auto) Urine Microscopic WBC Ur Squamous Epith Cells Microbiology 04/23/18 03:20 Blood Blood Culture - Preliminary NO GROWTH AFTER 3 DAYS 04/23/18 03:50 Blood Blood Culture - Preliminary NO GROWTH AFTER 3 DAYS 04/23/18 17:56 Urine Urine Culture - Final No Growth (<1,000 CFU/ML) Accession No. : [id number] Patient Name / ID : IRENE LEMONS / [id number] Exam Date : 04/23/2018 16:56:48 ( Approved ) Study Comment : Sex / Age : F / 63Y Creator : CESAR CUMMINGS Dictator : Bicycle Repair Technician : End Lathe Operator : CESAR CUMMINGS Approver2 : Report Date : 04/23/2018 18:29:00 My Comment : [facility] Division of Radiology [address] [place] [address] Tel. no. Patient Name: VESTA BONILLA Pt. Address: [address] [place] [address]. Rec #: [id number] [place] [address]: Piotr WILKERSON,Margo Juarez Pt Order Location: [place] [id number] : 1955 Female Age: 63 Order #: [id number] Reason for exam: shortness of breath CT Scan ANGIO CHEST PE PROTOCOL Exam Date: 04/23/18 This imaging exam was performed at [facility] ADDENDUM Addendum created by Cesar Cummings MD on 04/23/2018 6:38:59 PM EDT Findings were discussed with Dr. Carbajal at 6:38 PM EDT on 04/23/2018. Abdominal CT findings were also discussed. ADDITIONAL HISTORY: Small cell lung cancer with fever and neutropenia Initial report created on 04/23/2018 6:29:26 PM EDT EXAM: CT Angiography Chest With Intravenous Contrast EXAM DATE/TIME: 04/23/2018 10:50 AM CLINICAL HISTORY: 63 years old, female; Condition or disease; Other: SOB; Additional info: Shortness of breath TECHNIQUE: Axial computed tomographic angiography images of the chest with intravenous contrast using pulmonary embolism protocol. All CT scans at this facility use one or more dose reduction techniques, viz.: automated exposure control; ma/kV adjustment per patient size (including targeted exams where dose is matched to indication; i.e. head); or iterative reconstruction technique. MIP reconstructed images were created and reviewed. Coronal and sagittal reformatted images were created and reviewed. CONTRAST: 100 mL of visipaque administered intravenously. COMPARISON: There are no prior studies for comparison. FINDINGS: Heart, aorta and Pulmonary arteries: Heart size is normal.There is trace fluid in pericardial recesses.There is no aneurysm or dissection. There is perfusion of the 3 arch vessels. There are vascular calcifications. There are no central pulmonary emboli. There are multiple small peripheral pulmonary emboli in the lower lobe arteries bilaterally. There are small nonocclusive left upper lobe filling defects. Mediastinum: There is infiltrative/inflammatory change in the fat of the mediastinum. There are mildly prominent mediastinal nodes. There is right adenopathy. There is subcarinal mass and adenopathy. Esophagus is well demonstrated. There is a hiatal hernia. Lungs and pleural spaces: Trachea and main bronchi are patent. There is a right hilar adenopathy with encasement and almost complete occlusion of the right upper lobe bronchus and its branches. There is encasement of the bronchus intermedius. Middle and lower lobe bronchi are patent. Left upper and lower lobe bronchi are patent and well-aerated. There is a posterior right upper lobe mass which is contiguous with the right hilum. Mass measures approximately 6.6 x 5.3 x 5.1 cm. The mass abuts the major fissure posteriorly. There irregular pleural thickening in the right upper hemithorax. There are panlobular emphysematous changes greatest at the right base. There is subsegmental atelectasis and scarring at the right base. There is airspace disease with air bronchograms in the left lower lobe. There is scarring in the lingula. There are mild centrilobular changes in the upper lobes left greater than right. Upper abdomen: There are no acute abnormalities in the visualized portion of the abdomen Thyroid: Thyroid is not optimally demonstrated. Bones/joints: There are degenerative changes in the osseus structures. Soft tissues: unremarkable Tubes, lines and devices: There is a Port-A-Cath in the left chest wall. Catheter tip is at the cavoatrial junction. IMPRESSION: Multiple small bilateral acute appearing pulmonary emboli greatest in the lower lobes; right upper lobe mass with right hilar adenopathy; encasement and marked narrowing/occlusion of right upper lobe bronchi; left lower lobe pneumonia; emphysema Additional nonemergent findings as described above. Addendum Dictated By: Cesar Cummings MD Addendum Dictated Date Time:04/23/18 Addendum Signed by:Cesar Cummings MD Addendum signed Date Time: 04/23/181837 Addendum Transcribed By: SB Addendum Transcribed Date Time: 04/23/18 ANTONINO/MAIKOL EXAM: CT Angiography Chest With Intravenous Contrast EXAM DATE/TIME: 04/23/2018 10:50 AM CLINICAL HISTORY: 63 years old, female; Condition or disease; Other: SOB; Additional info: Shortness of breath TECHNIQUE: Axial computed tomographic angiography images of the chest with intravenous contrast using pulmonary embolism protocol. All CT scans at this facility use one or more dose reduction techniques, viz.: automated exposure control; ma/kV adjustment per patient size (including targeted exams where dose is matched to indication; i.e. head); or iterative reconstruction technique. MIP reconstructed images were created and reviewed. Coronal and sagittal reformatted images were created and reviewed. CONTRAST: 100 mL of visipaque administered intravenously. COMPARISON: There are no prior studies for comparison. FINDINGS: Heart, aorta and Pulmonary arteries: Heart size is normal.There is trace fluid in pericardial recesses.There is no aneurysm or dissection. There is perfusion of the 3 arch vessels. There are vascular calcifications. There are no central pulmonary emboli. There are multiple small peripheral pulmonary emboli in the lower lobe arteries bilaterally. There are small nonocclusive left upper lobe filling defects. Mediastinum: There is infiltrative/inflammatory change in the fat of the mediastinum. There are mildly prominent mediastinal nodes. There is right adenopathy. There is subcarinal mass and adenopathy. Esophagus is well demonstrated. There is a hiatal hernia. Lungs and pleural spaces: Trachea and main bronchi are patent. There is a right hilar adenopathy with encasement and almost complete occlusion of the right upper lobe bronchus and its branches. There is encasement of the bronchus intermedius. Middle and lower lobe bronchi are patent. Left upper and lower lobe bronchi are patent and well-aerated. There is a posterior right upper lobe mass which is contiguous with the right hilum. Mass measures approximately 6.6 x 5.3 x 5.1 cm. The mass abuts the major fissure posteriorly. There irregular pleural thickening in the right upper hemithorax. There are panlobular emphysematous changes greatest at the right base. There is subsegmental atelectasis and scarring at the right base. There is airspace disease with air bronchograms in the left lower lobe. There is scarring in the lingula. There are mild centrilobular changes in the upper lobes left greater than right. Upper abdomen: There are no acute abnormalities in the visualized portion of the abdomen Thyroid: Thyroid is not optimally demonstrated. Bones/joints: There are degenerative changes in the osseus structures. Soft tissues: unremarkable Tubes, lines and devices: There is a Port-A-Cath in the left chest wall. Catheter tip is at the cavoatrial junction. IMPRESSION: Multiple small bilateral acute appearing pulmonary emboli greatest in the lower lobes; right upper lobe mass with right hilar adenopathy; encasement and marked narrowing/occlusion of right upper lobe bronchi; left lower lobe pneumonia; emphysema Additional nonemergent findings as described above. Dictated By: Cesar Cummings MD, MD Dictated Date/Time: 04/23/181828 Signed By: Cesar Cummings MD Date Signed: 1828 Transcribed By: SB Transcribe Date/Time : 04/23/181828 ANTONINO/MAIKOL Accession No. : [id number] Patient Name / ID : IRENE LEMONS / [id number] Exam Date : 04/23/2018 16:57:49 ( Approved ) Study Comment : Sex / Age : F / 63Y Creator : CESAR CUMMINGS Dictator : Bicycle Repair Technician : End Lathe Operator : CESAR CUMMINGS Approver2 : Report Date : 04/23/2018 18:41:00 My Comment : [facility] Division of Radiology [address] [place] [address] Tel. no. Patient Name: VESTA BONILLA Pt. Address: [address] [place] [address] Rec #: [id number] [place] [address]: Nona James MD Pt Order Location: [place] [id number] : 1955 Female Age: 63 Order #: [id number] Reason for exam: epigastric pain CT Scan ABD PELVIS IV CONTRAST ONLY Exam Date: 04/23/18 This imaging exam was performed at [facility] EXAM: CT Abdomen and Pelvis With Intravenous Contrast EXAM DATE/TIME: 04/23/2018 2:50 PM CLINICAL HISTORY: 63 years old, female; Pain; Abdominal pain; Epigastric; Patient HX: Abd pain/sob; Additional info: Small cell lung cancer, fever and neutropenia TECHNIQUE: Axial computed tomography images of the abdomen and pelvis with intravenous contrast. All CT scans at this facility use one or more dose reduction techniques, viz.: automated exposure control; ma/kV adjustment per patient size (including targeted exams where dose is matched to indication; i.e. head); or iterative reconstruction technique. Coronal and sagittal reformatted images were created and reviewed. CONTRAST: 100 mL of visipaque administered intravenously. COMPARISON: There are no prior studies for comparison. FINDINGS: Lower thorax: Heart size is normal. There is a hiatal hernia. There is left lower lobe airspace disease. There is subsegmental atelectasis/scarring at the right base. There are small bilateral pulmonary emboli best seen in the left lower lobe vessels. ABDOMEN: Liver: There is mild periportal edema. Liver is mildly enlarged. Gallbladder and bile ducts: Gallbladder is partially distended. There is pericholecystic fluid. Common duct is normal in caliber. Pancreas: Pancreas is mildly atrophic. Spleen: Spleen is unremarkable. There are accessory splenules in the left upper quadrant. Adrenals: unremarkable Kidneys and ureters: There are subtle perfusion defects in the kidneys bilaterally. There is no pelvocaliectasis or ureterectasis. Stomach and bowel: There is a moderate sized hiatal hernia. Stomach is almost completely empty. Rotation is normal. Mid and distal small bowel are mildly distended with fluid. There is no obstruction. Ileocecal region is unremarkable.Appendix and terminal ileum are unremarkable.There is no cecal inflammatory change. There is moderate stool in the colon. PELVIS: Appendix: See stomach and bowel Bladder: unremarkable Reproductive: Uterus and adnexal structures are unremarkable. ABDOMEN and PELVIS: Intraperitoneal space: There is no free air. Bones/joints: Bony structures are osteopenic. There degenerative changes. There is partial ankylosis of the sacroiliac joints. There is laminectomy and fusion L5-S1. Soft tissues: unremarkable Vasculature: Vascular structures are unremarkable. Lymph nodes: There is no pathologic adenopathy. IMPRESSION: Left lower lobe pneumonia; pulmonary emboli; periportal edema; subtle bilateral renal perfusion defects suggest pyelonephritis; pericholecystic fluid, no ductal dilatation; no CT findings to suggest typhlitis Additional nonemergent findings as described above. 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 found to have LLE dvt and small PE and LLL pneumonias as per Ct reports. clinically seems to be betetr. no longer febrile s/p granix and no longer neutropenic either. plan- in light of the immunesuppressed state advise to also add vanco to the regime to treat the pneumonia along with the zosyn. check sputum cx. check blood cx . check UA and urine cx. anticoagulation for DVT and PE as per oncologist and primary doctor. upper inner thigh erythema most likley secondary to chafing ( not c/w cellulitis ). advise to make sure wears cotton underwear and try antifungal ointment to the region for 1-2 days. All above d/w patient and she verbalizes full understanding of all above. All above also d/w . Thank you for allowing met o take part in the care of this patient.
[2018-04-26 11:33] LABS: METAMYELOCYTE 5 % (0-0); NEUTROPHIL 54 % (42-75); TOTAL CELLS COUNTED 100
[2018-04-26 11:34] LABS: PLATELET ESTIMATE NORMAL (NORMAL)
[2018-04-26 11:38] LABS: ANISOCYTOSIS SLIGHT; GIANT PLATELETS PRESENT; HYPOCHROMIC SLIGHT; LARGE PLATELETS PRESENT; MICROCYTOSIS SLIGHT; PLATELET CLUMPS PRESENT; POIKILOCYTOSIS SLIGHT; TOXIC GRANULATION PRESENT
[2018-04-26] MEDS: Potassium Chloride 20 mEq ER Tab PO SCH (12:07)
[2018-04-26] MEDS: Sucralfate 1 gm/10 ml Oral Susp UD PO SCH (12:07)
[2018-04-26 12:31] LABS: LYMPHOCYTE 17 % (20-50); MYELOCYTE 5 % (0-0)
[2018-04-26 12:33] LABS: BANDS 11 % (0-2)
[2018-04-26 12:35] LABS: MONOCYTE 8 % (0-10)
[2018-04-26] MEDS: SODIUM CHLORIDE 0.9% IV SCH (14:32)
[2018-04-26] MEDS: CALCIUM GLUCONATE IV SCH (14:32)
--- NOTE | 2018-04-26 16:54 | NM ---
PROCEDURE: Whole Body Bone Scan HISTORY: Lung cancer COMPARISON: None available. TECHNIQUE: Following administration of 24.6 miCu of Tc MDP multiplanar whole body images were obtained. FINDINGS: Evidence for bony metastatic disease: None. Degenerative uptake: None. Physiologic uptake: Normal physiologic activity in the kidneys. Other findings: None. IMPRESSION: No evidence of bony metastatic disease.
[2018-04-26] MEDS ORDERED: Sodium Chloride 3% for Inhalation 4 ML VIAL.NEB IH PRN (17:39)
[2018-04-26] MEDS: Docusate-Senna 50 mg-8.6 mg Tab PO SCH (22:12)
[2018-04-27] MEDS: CALCIUM GLUCONATE IV SCH ×4 (00:34→08:33)
[2018-04-27] MEDS: SODIUM CHLORIDE 0.9% IV SCH ×4 (00:34→08:33)
[2018-04-27] MEDS: Piperacillin/Tazobact 4.5 GM in Sodium Chloride 0.9% 100 ML IVPB SCH ×4 (04:12→21:28)
[2018-04-27 06:21] LABS: BASO % 0.1 % (0.0-2.0); EOS % 0.1 % (0.0-4.0); HEMOGLOBIN 8.9 g/dL (12.0-16.0); LYMPH # 1.7 K/uL (1.0-4.3); LYMPH % 8.4 % (20.0-40.0); MEAN CORPUSCULAR HEMOGLOBIN 24.9 pg (27.0-31.0); MEAN CORPUSCULAR HGB CONC 31.9 g/dL (33.0-37.0); MEAN PLATELET VOLUME 8.3 fl (7.2-11.7); MONO # 1.1 K/uL (0.0-0.8); MONO % 5.3 % (0.0-10.0); NEUT # 17.8 K/uL (1.8-7.0); NEUT % 86.1 % (50.0-75.0); RBC 3.59 Mil/uL (3.80-5.20); RED CELL DISTRIBUTION WIDTH 17.1 % (11.5-14.5); WHITE BLOOD COUNT 20.6 K/uL (4.8-10.8)
[2018-04-27] MEDS: Pantoprazole 20 mg EC Tab PO SCH (08:48)
[2018-04-27] MEDS: Enoxaparin 60 mg Syringe SC SCH ×2 (08:48→21:36)
[2018-04-27] MEDS: Potassium Chloride 20 mEq ER Tab PO SCH (08:50)
[2018-04-27] MEDS: Lidocaine 5% Patch TD SCH (08:53)
[2018-04-27 09:01] LABS: BLOOD UREA NITROGEN 9 mg/dl (7-17); GFR AFRICAN-AMERICAN > 60; GFR NON-AFRICAN AMERICAN > 60
[2018-04-27 09:02] LABS: CALCIUM 7.8 mg/dL (8.4-10.2)
[2018-04-27] MEDS ORDERED: Potassium Chloride 20 mEq ER Tab PO ONE (10:14)
[2018-04-27] MEDS ORDERED: Magnesium Sulfate 2 gm/50 ml 2 GM/50 ML BAG IVPB ONE (10:22)
[2018-04-27] MEDS ORDERED: Magnesium Sulfate 1 GM in Dextrose 5% In Water 50 ML IVPB ONE (10:30)
--- NOTE | 2018-04-27 10:40 | CP.PCM.PN ---
Subjective - Date & Time of Evaluation Date of Evaluation: 04/27/18 Time of Evaluation: 10:40 - Subjective Subjective: No acute overnight events. Pt states that she worked with PT yesterday and has been slowly ambulating by herself around the room. States that her pain has improved in her thighs. Pt remains afebrile, denies chest pain, abdominal pain, dyspnea, tachycardia, chills and fever. Objective - Vital Signs/Intake and Output Vital Signs (last 24 hours): Temp Pulse Resp BP Pulse Ox 97.8 F 96 H 20 146/82 95 04/27/18 08:07 04/27/18 08:07 04/27/18 08:07 04/27/18 08:07 04/27/18 08:07 - Medications Medications: Current Medications Alprazolam (Xanax) 1 mg PO TID PRN PRN Reason: Insomnia Last Admin: 04/25/18 09:03 Dose: 1 mg Atorvastatin Calcium (Lipitor) 20 mg PO DAILY [facility] Last Admin: 04/27/18 08:48 Dose: 20 mg Calcium Carbonate (Oscal) 500 mg PO BIDWM [facility] Last Admin: 04/27/18 08:51 Dose: 500 mg Docusate Sodium (Colace) 100 mg PO BID [facility] Last Admin: 04/27/18 08:48 Dose: 100 mg Enoxaparin Sodium (Lovenox) 60 mg SC Q12 [facility] PRN Reason: Protocol Last Admin: 04/27/18 08:48 Dose: 60 mg Home Med (Desvenlafaxine Succinate [Pristiq]) 50 mg PO DAILY [facility] Last Admin: 04/27/18 08:54 Dose: 50 mg Piperacillin Sod/Tazobactam (Sod 4.5 gm/ Sodium Chloride) 100 mls @ 100 mls/hr IVPB Q6 [facility] PRN Reason: Protocol Last Admin: 04/27/18 04:12 Dose: 100 mls/hr Calcium Gluconate 1,000 mg/ (Sodium Chloride) 510 mls @ 100 mls/hr IV .Q5H6M [facility] Last Admin: 04/27/18 08:33 Dose: 100 mls/hr Vancomycin HCl 1 gm/ Sodium (Chloride) 250 mls @ 166.667 mls/hr IVPB DAILY@ 2100 [facility] PRN Reason: Protocol Magnesium Sulfate (Magnesium Sulfate 2 Gm/50 Ml Water) 2 gm in 50 mls @ 50 mls/ hr IVPB ONCE ONE PRN Reason: 1 GM/30 MIN Stop: 04/27/18 11:21 Ketorolac Tromethamine (Toradol) 30 mg IVP TID PRN PRN Reason: Pain, severe (8-10) Last Admin: 04/27/18 04:15 Dose: 30 mg Lidocaine (Lidoderm) 2 ea TD DAILY [facility] Last Admin: 04/27/18 08:53 Dose: 2 ea Morphine Sulfate (Morphine) 4 mg IVP Q6 PRN PRN Reason: Pain, severe (8-10) Last Admin: 04/27/18 09:09 Dose: 4 mg Ondansetron HCl (Zofran Inj) 4 mg IVP Q6 PRN PRN Reason: Nausea/Vomiting Pantoprazole Sodium (Protonix Ec Tab) 20 mg PO DAILY [facility] Last Admin: 04/27/18 08:48 Dose: 20 mg Potassium Phosphate (Potassium Phosphate) 1,000 mg PO QID [facility] Stop: 04/28/18 09:01 Senna/Docusate Sodium (Senokot S 50 Mg-8.6 Mg) 2 tab PO HS [facility] Last Admin: 04/26/18 22:12 Dose: 2 tab Sucralfate (Carafate Oral Susp) 1 gm PO DAILY@1100 [facility] Last Admin: 04/26/18 12:07 Dose: 1 gm Zolpidem Tartrate (Ambien) 5 mg PO HS PRN PRN Reason: Anxiety Last Admin: 04/27/18 00:34 Dose: 5 mg - Labs Labs: 04/27/18 05:50 04/27/18 05:50 - Constitutional Appears: No Acute Distress - Head Exam Head Exam: NORMAL INSPECTION - Eye Exam Eye Exam: EOMI - ENT Exam ENT Exam: Mucous Membranes Moist - Respiratory Exam Respiratory Exam: Clear to Ausculation Bilateral, NORMAL BREATHING PATTERN. absent: Wheezes - Cardiovascular Exam Cardiovascular Exam: REGULAR RHYTHM, +S1, +S2 - GI/Abdominal Exam GI & Abdominal Exam: Soft, Normal Bowel Sounds. absent: Tenderness - Extremities Exam Extremities Exam: Pedal Edema (mild pedal edema up to the knees) Additional comments: Mild thigh tenderness (L>R), edema resolved Mild erythema in the medial L thigh, improved Good cap refill - Back Exam Back Exam: NORMAL INSPECTION - Neurological Exam Neurological Exam: Alert, Awake, Oriented x3 - Psychiatric Exam Psychiatric exam: Normal Affect, Normal Mood - Skin Skin Exam: Dry, Intact Assessment and Plan - Assessment and Plan (Free Text) Assessment: Assessment/Plan: 63 YO Female with small cell carcinoma is admitted for neutropenic fever after receiving one course of chemotherapy and a dose of granix 04/18. Neutropenic fever -likely 2/2 to chemotherapy -resolved -s/p daily granix 04/23-04/25 -Hem/on consult -Zosyn D5 and Vancomycin D2; ID consulted; will cont IV abx for 1-2 more days. Will d/c on oral abx such as avelox for few days. PE/DVT -CT chest 04/23: multiple small bilayteral acute appearing PE greatest in the lower lobes -U/s of the extremities 04/23: nonocclusive DVT involving 1 of the paired L posterior tibial veins -c/w theraputic lovenox 60mg SC Q12 -Per Dr. Saldaña will d/c pt will Eliquis for 6 months Small Cell carcinoma -on chemotherapy -CT chest 04/23: right upper love mass right right hilar adenopathy -PET scan 02/25/18: hypermetabolic mass in RU lobe; hypermetabolic soft tissue nodule right flank region, hypermetabolic lesion right pedicle, transverse process and lamina T3. Focal hypermetabolism involving the right lateral wall of distal esophagus. -hem/onc and pulmonary on board -Bone scan no signs of metastasis -pain management as needed Hypocalcemia, paraneoplastic syndrome -Hypocalcemia likely 2/2 to paraneoplastic syndrome -will replace as needed -repeat EKG post resolution Leukocytosis -iatrogenic, 2/2 to granix -afebrile Pneumonia, LLL -CT chest 04/23; left lower lobe pneumonia -remains afebile -c/w Zosyn D5 and Vanc D2 -will consult ID, follow up recs Lower extremity pain -likely 2/2 to carcinoma, not cellulitis -tenderness L>R, thigh pain wit erythema -ID on board; antifungal cream TOP -cont pain management -PT/OT on consult Microcytic anemia -likely anemia of chronic disease -stable Anxiety -c/w Xanax 1mg PO HLD -c/w Atrovastatin 20mg DVT Tx
--- NOTE | 2018-04-27 11:14 | CP.PCM.PN ---
Subjective - Date & Time of Evaluation Date of Evaluation: 04/27/18 Time of Evaluation: 12:07 - Subjective Subjective: ID Note- Patient seen and examined today. c/o abdominal pain because she has not had bm in 7 days. denies any fever or chills. as per nurse will get suppository now. Objective - Vital Signs/Intake and Output Vital Signs (last 24 hours): Temp Pulse Resp BP Pulse Ox 97.8 F 96 H 20 146/82 95 04/27/18 08:07 04/27/18 08:07 04/27/18 08:07 04/27/18 08:07 04/27/18 08:07 - Medications Medications: Current Medications Alprazolam (Xanax) 1 mg PO TID PRN PRN Reason: Insomnia Last Admin: 04/25/18 09:03 Dose: 1 mg Atorvastatin Calcium (Lipitor) 20 mg PO DAILY [facility] Last Admin: 04/27/18 08:48 Dose: 20 mg Calcium Carbonate (Oscal) 500 mg PO BIDWM [facility] Last Admin: 04/27/18 08:51 Dose: 500 mg Docusate Sodium (Colace) 100 mg PO BID [facility] Last Admin: 04/27/18 08:48 Dose: 100 mg Enoxaparin Sodium (Lovenox) 60 mg SC Q12 [facility] PRN Reason: Protocol Last Admin: 04/27/18 08:48 Dose: 60 mg Home Med (Desvenlafaxine Succinate [Pristiq]) 50 mg PO DAILY [facility] Last Admin: 04/27/18 08:54 Dose: 50 mg Piperacillin Sod/Tazobactam (Sod 4.5 gm/ Sodium Chloride) 100 mls @ 100 mls/hr IVPB Q6 [facility] PRN Reason: Protocol Last Admin: 04/27/18 04:12 Dose: 100 mls/hr Calcium Gluconate 1,000 mg/ (Sodium Chloride) 510 mls @ 100 mls/hr IV .Q5H6M [facility] Last Admin: 04/27/18 08:33 Dose: 100 mls/hr Vancomycin HCl 1 gm/ Sodium (Chloride) 250 mls @ 166.667 mls/hr IVPB DAILY@ 2100 [facility] PRN Reason: Protocol Magnesium Sulfate (Magnesium Sulfate 2 Gm/50 Ml Water) 2 gm in 50 mls @ 50 mls/ hr IVPB ONCE ONE PRN Reason: 1 GM/30 MIN Stop: 04/27/18 11:21 Ketorolac Tromethamine (Toradol) 30 mg IVP TID PRN PRN Reason: Pain, severe (8-10) Last Admin: 04/27/18 04:15 Dose: 30 mg Lidocaine (Lidoderm) 2 ea TD DAILY [facility] Last Admin: 04/27/18 08:53 Dose: 2 ea Morphine Sulfate (Morphine) 4 mg IVP Q6 PRN PRN Reason: Pain, severe (8-10) Last Admin: 04/27/18 09:09 Dose: 4 mg Ondansetron HCl (Zofran Inj) 4 mg IVP Q6 PRN PRN Reason: Nausea/Vomiting Pantoprazole Sodium (Protonix Ec Tab) 20 mg PO DAILY [facility] Last Admin: 04/27/18 08:48 Dose: 20 mg Potassium Phosphate (Potassium Phosphate) 1,000 mg PO QID [facility] Stop: 04/28/18 09:01 Senna/Docusate Sodium (Senokot S 50 Mg-8.6 Mg) 2 tab PO HS [facility] Last Admin: 04/26/18 22:12 Dose: 2 tab Sucralfate (Carafate Oral Susp) 1 gm PO DAILY@1100 [facility] Last Admin: 04/26/18 12:07 Dose: 1 gm Zolpidem Tartrate (Ambien) 5 mg PO HS PRN PRN Reason: Anxiety Last Admin: 04/27/18 00:34 Dose: 5 mg - Labs Labs: - Additional Findings Additional findings: - Constitutional Appears: No Acute Distress - Head Exam Head Exam: ATRAUMATIC - Eye Exam Eye Exam: EOMI, PERRL - ENT Exam ENT Exam: Normal Oropharynx - Respiratory Exam Respiratory Exam: NORMAL BREATHING PATTERN Additional comments: no wheezing decreased breath sounds on the right upper lung region and left base - Cardiovascular Exam Cardiovascular Exam: RRR, +S1, +S2 - GI/Abdominal Exam GI & Abdominal Exam: Normal Bowel Sounds, Soft Additional comments: NT, ND - Extremities Exam Additional comments: no edema or erythema B/L LE medial left upper thigh region with erythema , no edema smaller erythema on right medial upper thigh blanching not warm - Neurological Exam Neurological exam: Alert, Oriented x 3 - Additional Findings Additional findings: left upper chest port site clean/ dry, no erythema Laboratory Results - last 72 hr 0604/24/18 04/25/18 08:40 11:30 06:00 WBC 5.4 D RBC 3.76 L Hgb 9.6 L Hct 30.0 L MCV 79.8 L MCH 25.6 L MCHC 32.0 L RDW 17.2 H Plt Count 204 MPV 8.9 Neut % (Auto) 75.9 H Lymph % (Auto) 20.3 Emanuel % (Auto) 3.3 Eos % (Auto) 0.4 Baso % (Auto) 0.1 Neut # (Auto) 4.1 Lymph # (Auto) 1.1 Emanuel # (Auto) 0.2 Eos # (Auto) 0.0 Baso # (Auto) 0.0 Neutrophils % (Manual) 8 L Band Neutrophils % 4 H Lymphocytes % (Manual) 68 H Monocytes % (Manual) 16 H Eosinophils % (Manual) 4 Metamyelocytes % Myelocytes % Toxic Granulation Platelet Estimate Normal Plt Clumps, EDTA Large Platelets Present Giant Platelets Hypochromasia (manual) Poikilocytosis (manual Anisocytosis (manual) Slight Microcytosis (manual) Macrocytosis (manual) Slight Ovalocytes Moderate Sodium Potassium Chloride Carbon Dioxide Anion Gap BUN Creatinine Est GFR ( Amer) Est GFR (Non-Af Amer) POC Glucose (mg/dL) Random Glucose Calcium Ionized Calcium 3.5 L Phosphorus Magnesium Total Bilirubin AST ALT Alkaline Phosphatase Total Protein Albumin Globulin Albumin/Globulin Ratio Procalcitonin 04/25/18 04/26/18 04/26/18 06:00 09:45 09:45 WBC 16.3 H D RBC 3.76 L Hgb 9.4 L Hct 29.2 L MCV 77.7 L D MCH 25.0 L MCHC 32.2 L RDW 16.8 H Plt Count 208 MPV 8.0 Neut % (Auto) 88.3 H Lymph % (Auto) 9.1 L Emanuel % (Auto) 2.4 Eos % (Auto) 0.1 Baso % (Auto) 0.1 Neut # (Auto) 14.4 H Lymph # (Auto) 1.5 Emanuel # (Auto) 0.4 Eos # (Auto) 0.0 Baso # (Auto) 0.0 Neutrophils % (Manual) 54 Band Neutrophils % 11 H* Lymphocytes % (Manual) 17 L Monocytes % (Manual) 8 Eosinophils % (Manual) Metamyelocytes % 5 H Myelocytes % 5 H Toxic Granulation Present Platelet Estimate Normal Plt Clumps, EDTA Present Large Platelets Present Giant Platelets Present Hypochromasia (manual) Slight Poikilocytosis (manual Slight Anisocytosis (manual) Slight Microcytosis (manual) Slight Macrocytosis (manual) Ovalocytes Sodium 138 138 Potassium 4.4 3.2 L Chloride 111 H 107 Carbon Dioxide 17 L 24 Anion Gap 14 10 BUN 20 H 13 Creatinine 0.9 0.9 Est GFR ( Amer) > 60 > 60 Est GFR (Non-Af Amer) > 60 > 60 POC Glucose (mg/dL) Random Glucose 92 125 H Calcium 6.7 L 6.9 L Ionized Calcium Phosphorus Magnesium 2.0 Total Bilirubin 0.9 AST 27 ALT 26 Alkaline Phosphatase 87 Total Protein 5.8 L Albumin 2.7 L Globulin 3.1 Albumin/Globulin Ratio 0.9 L Procalcitonin 04/26/18 04/26/18 04/27/18 09:45 15:44 05:50 WBC 20.6 H RBC 3.59 L Hgb 8.9 L Hct 28.0 L MCV 78.0 L MCH 24.9 L MCHC 31.9 L RDW 17.1 H Plt Count 188 MPV 8.3 Neut % (Auto) 86.1 H Lymph % (Auto) 8.4 L Emanuel % (Auto) 5.3 Eos % (Auto) 0.1 Baso % (Auto) 0.1 Neut # (Auto) 17.8 H Lymph # (Auto) 1.7 Emanuel # (Auto) 1.1 H Eos # (Auto) 0.0 Baso # (Auto) 0.0 Neutrophils % (Manual) Band Neutrophils % Lymphocytes % (Manual) Monocytes % (Manual) Eosinophils % (Manual) Metamyelocytes % Myelocytes % Toxic Granulation Platelet Estimate Plt Clumps, EDTA Large Platelets Giant Platelets Hypochromasia (manual) Poikilocytosis (manual Anisocytosis (manual) Microcytosis (manual) Macrocytosis (manual) Ovalocytes Sodium Potassium Chloride Carbon Dioxide Anion Gap BUN Creatinine Est GFR ( Amer) Est GFR (Non-Af Amer) POC Glucose (mg/dL) 109 Random Glucose Calcium Ionized Calcium Phosphorus Magnesium Total Bilirubin AST ALT Alkaline Phosphatase Total Protein Albumin Globulin Albumin/Globulin Ratio Procalcitonin 4.92 H 04/27/18 05:50 WBC RBC Hgb Hct MCV MCH MCHC RDW Plt Count MPV Neut % (Auto) Lymph % (Auto) Emanuel % (Auto) Eos % (Auto) Baso % (Auto) Neut # (Auto) Lymph # (Auto) Emanuel # (Auto) Eos # (Auto) Baso # (Auto) Neutrophils % (Manual) Band Neutrophils % Lymphocytes % (Manual) Monocytes % (Manual) Eosinophils % (Manual) Metamyelocytes % Myelocytes % Toxic Granulation Platelet Estimate Plt Clumps, EDTA Large Platelets Giant Platelets Hypochromasia (manual) Poikilocytosis (manual Anisocytosis (manual) Microcytosis (manual) Macrocytosis (manual) Ovalocytes Sodium 142 Potassium 3.5 L Chloride 108 H Carbon Dioxide 24 Anion Gap 14 BUN 9 Creatinine 0.8 Est GFR ( Amer) > 60 Est GFR (Non-Af Amer) > 60 POC Glucose (mg/dL) Random Glucose 93 Calcium 7.8 L Ionized Calcium Phosphorus 2.0 L Magnesium 1.4 L Total Bilirubin AST ALT Alkaline Phosphatase Total Protein Albumin Globulin Albumin/Globulin Ratio Procalcitonin Microbiology 04/23/18 03:20 Blood Blood Culture - Preliminary NO GROWTH AFTER 4 DAYS 04/23/18 03:50 Blood Blood Culture - Preliminary NO GROWTH AFTER 4 DAYS 04/23/18 17:56 Urine Urine Culture - Final No Growth (<1,000 CFU/ML) Assessment and Plan (1) Acute pulmonary embolism Status: Acute (2) Deep vein thrombosis (DVT) Status: Acute (3) 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 afebrile past 3 days. leukocytosis now s/p Granix found to have LLE dvt and small PE and LLL pneumonias as per Ct reports. blood cx- neg x 2 urine cx- negative plan- await sputum cx. advise to continue with IV zosyn day #5 and IV vanco day #2. would advise 1-2 more adys of IV abx and after that if patietn is being d./c home she can be sd/c on oral abx such as avelox for few days since she did have small infiltrate on cxr and is immunosuppressed and undergoing chemo. anticoagulation for DVT and PE as per oncologist and primary doctor. upper inner thigh erythema most likley secondary to chafing ( not c/w cellulitis ). advise to make sure wears cotton underwear and try antifungal ointment to the region BID for few days. all above d/w the oncologist and the family practice team.
[2018-04-27] MEDS: Sucralfate 1 gm/10 ml Oral Susp UD PO SCH (11:15)
--- NOTE | 2018-04-27 11:36 | CP.PCM.PN ---
Subjective - Date & Time of Evaluation Date of Evaluation: 04/27/18 Time of Evaluation: 11:36 Objective - Vital Signs/Intake and Output Vital Signs (last 24 hours): Temp Pulse Resp BP Pulse Ox 97.8 F 96 H 20 146/82 95 04/27/18 08:07 04/27/18 08:07 04/27/18 08:07 04/27/18 08:07 04/27/18 08:07 - Medications Medications: Current Medications Alprazolam (Xanax) 1 mg PO TID PRN PRN Reason: Insomnia Last Admin: 04/25/18 09:03 Dose: 1 mg Atorvastatin Calcium (Lipitor) 20 mg PO DAILY [facility] Last Admin: 04/27/18 08:48 Dose: 20 mg Calcium Carbonate (Oscal) 500 mg PO BIDWM [facility] Last Admin: 04/27/18 08:51 Dose: 500 mg Docusate Sodium (Colace) 100 mg PO BID [facility] Last Admin: 04/27/18 08:48 Dose: 100 mg Enoxaparin Sodium (Lovenox) 60 mg SC Q12 [facility] PRN Reason: Protocol Last Admin: 04/27/18 08:48 Dose: 60 mg Home Med (Desvenlafaxine Succinate [Pristiq]) 50 mg PO DAILY [facility] Last Admin: 04/27/18 08:54 Dose: 50 mg Piperacillin Sod/Tazobactam (Sod 4.5 gm/ Sodium Chloride) 100 mls @ 100 mls/hr IVPB Q6 [facility] PRN Reason: Protocol Last Admin: 04/27/18 04:12 Dose: 100 mls/hr Calcium Gluconate 1,000 mg/ (Sodium Chloride) 510 mls @ 100 mls/hr IV .Q5H6M [facility] Last Admin: 04/27/18 08:33 Dose: 100 mls/hr Vancomycin HCl 1 gm/ Sodium (Chloride) 250 mls @ 166.667 mls/hr IVPB DAILY@ 2100 [facility] PRN Reason: Protocol Ketorolac Tromethamine (Toradol) 30 mg IVP TID PRN PRN Reason: Pain, severe (8-10) Last Admin: 04/27/18 04:15 Dose: 30 mg Lidocaine (Lidoderm) 2 ea TD DAILY [facility] Last Admin: 04/27/18 08:53 Dose: 2 ea Morphine Sulfate (Morphine) 4 mg IVP Q6 PRN PRN Reason: Pain, severe (8-10) Last Admin: 04/27/18 09:09 Dose: 4 mg Ondansetron HCl (Zofran Inj) 4 mg IVP Q6 PRN PRN Reason: Nausea/Vomiting Pantoprazole Sodium (Protonix Ec Tab) 20 mg PO DAILY [facility] Last Admin: 04/27/18 08:48 Dose: 20 mg Potassium Phosphate (Potassium Phosphate) 1,000 mg PO QID [facility] Stop: 04/28/18 09:01 Senna/Docusate Sodium (Senokot S 50 Mg-8.6 Mg) 2 tab PO HS [facility] Last Admin: 04/26/18 22:12 Dose: 2 tab Sucralfate (Carafate Oral Susp) 1 gm PO DAILY@1100 [facility] Last Admin: 04/27/18 11:15 Dose: 1 gm Zolpidem Tartrate (Ambien) 5 mg PO HS PRN PRN Reason: Anxiety Last Admin: 04/27/18 00:34 Dose: 5 mg - Labs Labs: 04/27/18 05:50 04/27/18 05:50 Assessment and Plan (1) Deep vein thrombosis (DVT) Status: Acute (2) Acute pulmonary embolism Status: Acute (3) 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
[2018-04-27] MEDS ORDERED: Chlorhexidine Gluconate 1 APPL/PKT TP ONE (11:41)
--- NOTE | 2018-04-27 12:49 | CP.PCM.PN ---
Subjective - Date & Time of Evaluation Date of Evaluation: 04/27/18 Time of Evaluation: 12:47 - Subjective Subjective: Pt isfeeling very much better today. She is afebrile, irene has no c/o respiratore distress The bone scan was negative for metastasis. Her WBC after the granix is elevated to 20.1. She is able to walk about 40 feet,with no pain. Objective - Vital Signs/Intake and Output Vital Signs (last 24 hours): Temp Pulse Resp BP Pulse Ox 97.8 F 96 H 20 146/82 95 04/27/18 08:07 04/27/18 08:07 04/27/18 08:07 04/27/18 08:07 04/27/18 08:07 - Medications Medications: Current Medications Alprazolam (Xanax) 1 mg PO TID PRN PRN Reason: Insomnia Last Admin: 04/25/18 09:03 Dose: 1 mg Atorvastatin Calcium (Lipitor) 20 mg PO DAILY [facility] Last Admin: 04/27/18 08:48 Dose: 20 mg Calcium Carbonate (Oscal) 500 mg PO BIDWM [facility] Last Admin: 04/27/18 08:51 Dose: 500 mg Clotrimazole (Lotrimin 1% Cream) 1 applic TOP BID [facility] Docusate Sodium (Colace) 100 mg PO BID [facility] Last Admin: 04/27/18 08:48 Dose: 100 mg Enoxaparin Sodium (Lovenox) 60 mg SC Q12 [facility] PRN Reason: Protocol Last Admin: 04/27/18 08:48 Dose: 60 mg Home Med (Desvenlafaxine Succinate [Pristiq]) 50 mg PO DAILY [facility] Last Admin: 04/27/18 08:54 Dose: 50 mg Piperacillin Sod/Tazobactam (Sod 4.5 gm/ Sodium Chloride) 100 mls @ 100 mls/hr IVPB Q6 [facility] PRN Reason: Protocol Last Admin: 04/27/18 12:03 Dose: 100 mls/hr Vancomycin HCl 1 gm/ Sodium (Chloride) 250 mls @ 166.667 mls/hr IVPB DAILY@ 2100 [facility] PRN Reason: Protocol Ketorolac Tromethamine (Toradol) 30 mg IVP TID PRN PRN Reason: Pain, severe (8-10) Last Admin: 04/27/18 04:15 Dose: 30 mg Lidocaine (Lidoderm) 2 ea TD DAILY [facility] Last Admin: 04/27/18 08:53 Dose: 2 ea Morphine Sulfate (Morphine) 4 mg IVP Q6 PRN PRN Reason: Pain, severe (8-10) Last Admin: 04/27/18 09:09 Dose: 4 mg Ondansetron HCl (Zofran Inj) 4 mg IVP Q6 PRN PRN Reason: Nausea/Vomiting Pantoprazole Sodium (Protonix Ec Tab) 20 mg PO DAILY [facility] Last Admin: 04/27/18 08:48 Dose: 20 mg Potassium Phos/Sodium Phos (Neutra-Phos) 1 pkt PO TID [facility] Stop: 04/28/18 09:01 Senna/Docusate Sodium (Senokot S 50 Mg-8.6 Mg) 2 tab PO HS [facility] Last Admin: 04/26/18 22:12 Dose: 2 tab Sucralfate (Carafate Oral Susp) 1 gm PO DAILY@1100 [facility] Last Admin: 04/27/18 11:15 Dose: 1 gm Zolpidem Tartrate (Ambien) 5 mg PO HS PRN PRN Reason: Anxiety Last Admin: 04/27/18 00:34 Dose: 5 mg - Labs Labs: 04/27/18 05:50 04/27/18 05:50 - Additional Findings Additional findings: P/E; Alert, well oriented in no acute distress neck; supple, no adenopathy Chest;Air entry poor on the left lung,occ rhonchi Abd; Soft, no mass, ,no h/s megaly Heart; RSR,no murmur Assessment and Plan - Assessment and Plan (Free Text) Assessment: Imp; Small cell lung cancer, DVT,PE Plan: Plan; Will continue the iv antibiotics. Pt will start chemotherapy on Wednesday
[2018-04-27] MEDS: Potassium & Sodium Phosphate PO SCH ×2 (14:08→16:23)
[2018-04-27] MEDS: Docusate-Senna 50 mg-8.6 mg Tab PO SCH (21:37)
[2018-04-28] MEDS: Piperacillin/Tazobact 4.5 GM in Sodium Chloride 0.9% 100 ML IVPB SCH ×4 (03:20→21:06)
[2018-04-28 07:12] LABS: ALB/GLOB RATIO 0.9 (1.0-2.1); ALBUMIN 2.8 g/dL (3.5-5.0); ALT/SGPT 36 U/L (9-52); AST/SGOT 36 U/L (14-36); BLOOD UREA NITROGEN 8 mg/dl (7-17); CALCIUM 7.3 mg/dL (8.4-10.2); GFR AFRICAN-AMERICAN > 60; GFR NON-AFRICAN AMERICAN > 60
--- NOTE | 2018-04-28 08:25 | CP.PCM.PN ---
Subjective - Date & Time of Evaluation Date of Evaluation: 04/28/18 Time of Evaluation: 08:23 - Subjective Subjective: Pt is feeling much better. She is able to get out of the bed by herself and has also been walking. She is to get antibiotics until tomorrow and then can be discharged. She gets her next dose of chemo on wednesday Objective - Vital Signs/Intake and Output Vital Signs (last 24 hours): Temp Pulse Resp BP Pulse Ox 98.1 F 87 20 145/74 93 L 04/28/18 07:50 04/28/18 07:50 04/28/18 07:50 04/28/18 07:50 04/28/18 07:50 - Medications Medications: Current Medications Alprazolam (Xanax) 1 mg PO TID PRN PRN Reason: Insomnia Last Admin: 04/27/18 16:20 Dose: 1 mg Atorvastatin Calcium (Lipitor) 20 mg PO DAILY [facility] Last Admin: 04/27/18 08:48 Dose: 20 mg Calcium Carbonate (Oscal) 500 mg PO BIDWM [facility] Last Admin: 04/27/18 16:23 Dose: 500 mg Clotrimazole (Lotrimin 1% Cream) 1 applic TOP BID [facility] Last Admin: 04/27/18 16:38 Dose: 1 appl Docusate Sodium (Colace) 100 mg PO BID [facility] Last Admin: 04/27/18 16:24 Dose: 100 mg Enoxaparin Sodium (Lovenox) 60 mg SC Q12 [facility] PRN Reason: Protocol Last Admin: 04/27/18 21:36 Dose: 60 mg Home Med (Desvenlafaxine Succinate [Pristiq]) 50 mg PO DAILY [facility] Last Admin: 04/27/18 08:54 Dose: 50 mg Piperacillin Sod/Tazobactam (Sod 4.5 gm/ Sodium Chloride) 100 mls @ 100 mls/hr IVPB Q6 [facility] PRN Reason: Protocol Last Admin: 04/28/18 03:20 Dose: 100 mls/hr Vancomycin HCl 1 gm/ Sodium (Chloride) 250 mls @ 166.667 mls/hr IVPB DAILY@ 2100 [facility] PRN Reason: Protocol Last Admin: 04/27/18 22:44 Dose: 166.667 mls/hr Ketorolac Tromethamine (Toradol) 30 mg IVP TID PRN PRN Reason: Pain, severe (8-10) Last Admin: 04/28/18 03:37 Dose: 30 mg Lidocaine (Lidoderm) 2 ea TD DAILY [facility] Last Admin: 04/27/18 08:53 Dose: 2 ea Morphine Sulfate (Morphine) 4 mg IVP Q6 PRN PRN Reason: Pain, severe (8-10) Last Admin: 04/27/18 21:35 Dose: 4 mg Ondansetron HCl (Zofran Inj) 4 mg IVP Q6 PRN PRN Reason: Nausea/Vomiting Pantoprazole Sodium (Protonix Ec Tab) 20 mg PO DAILY [facility] Last Admin: 04/27/18 08:48 Dose: 20 mg Potassium Phos/Sodium Phos (Neutra-Phos) 1 pkt PO TID [facility] Stop: 04/28/18 09:01 Last Admin: 04/27/18 16:23 Dose: 1 pkt Senna/Docusate Sodium (Senokot S 50 Mg-8.6 Mg) 2 tab PO HS [facility] Last Admin: 04/27/18 21:37 Dose: 2 tab Sucralfate (Carafate Oral Susp) 1 gm PO DAILY@1100 [facility] Last Admin: 04/27/18 11:15 Dose: 1 gm Zolpidem Tartrate (Ambien) 5 mg PO HS PRN PRN Reason: Anxiety Last Admin: 04/27/18 00:34 Dose: 5 mg - Labs Labs: 04/27/18 05:50 04/28/18 06:10
[2018-04-28] MEDS: Lidocaine 5% Patch TD SCH (08:54)
[2018-04-28] MEDS: Enoxaparin 60 mg Syringe SC SCH (08:55)
[2018-04-28] MEDS: Potassium & Sodium Phosphate PO SCH (08:56)
[2018-04-28] MEDS: Pantoprazole 20 mg EC Tab PO SCH (08:56)
--- NOTE | 2018-04-28 09:01 | CP.PCM.PN ---
Subjective - Date & Time of Evaluation Date of Evaluation: 04/28/18 Time of Evaluation: 09:01 - Subjective Subjective: No acute overnight events. Pt states that she is feeling better, ambulating to the bathroom. Pain in the thighs improving. Objective - Vital Signs/Intake and Output Vital Signs (last 24 hours): Temp Pulse Resp BP Pulse Ox 98.1 F 87 20 145/74 93 L 04/28/18 07:50 04/28/18 07:50 04/28/18 07:50 04/28/18 07:50 04/28/18 07:50 - Medications Medications: Current Medications Alprazolam (Xanax) 1 mg PO TID PRN PRN Reason: Insomnia Last Admin: 04/28/18 08:52 Dose: 1 mg Atorvastatin Calcium (Lipitor) 20 mg PO DAILY [facility] Last Admin: 04/28/18 08:55 Dose: 20 mg Calcium Carbonate (Oscal) 500 mg PO BIDWM [facility] Last Admin: 04/28/18 08:56 Dose: 500 mg Clotrimazole (Lotrimin 1% Cream) 1 applic TOP BID [facility] Last Admin: 04/28/18 08:55 Dose: 1 appl Docusate Sodium (Colace) 100 mg PO BID [facility] Last Admin: 04/28/18 08:53 Dose: 100 mg Enoxaparin Sodium (Lovenox) 60 mg SC Q12 [facility] PRN Reason: Protocol Last Admin: 04/28/18 08:55 Dose: 60 mg Home Med (Desvenlafaxine Succinate [Pristiq]) 50 mg PO DAILY [facility] Last Admin: 04/28/18 08:53 Dose: 50 mg Piperacillin Sod/Tazobactam (Sod 4.5 gm/ Sodium Chloride) 100 mls @ 100 mls/hr IVPB Q6 [facility] PRN Reason: Protocol Last Admin: 04/28/18 03:20 Dose: 100 mls/hr Vancomycin HCl 1 gm/ Sodium (Chloride) 250 mls @ 166.667 mls/hr IVPB DAILY@ 2100 [facility] PRN Reason: Protocol Last Admin: 04/27/18 22:44 Dose: 166.667 mls/hr Ketorolac Tromethamine (Toradol) 30 mg IVP TID PRN PRN Reason: Pain, severe (8-10) Last Admin: 04/28/18 03:37 Dose: 30 mg Lidocaine (Lidoderm) 2 ea TD DAILY [facility] Last Admin: 04/28/18 08:54 Dose: 2 ea Morphine Sulfate (Morphine) 4 mg IVP Q6 PRN PRN Reason: Pain, severe (8-10) Last Admin: 04/27/18 21:35 Dose: 4 mg Ondansetron HCl (Zofran Inj) 4 mg IVP Q6 PRN PRN Reason: Nausea/Vomiting Pantoprazole Sodium (Protonix Ec Tab) 20 mg PO DAILY [facility] Last Admin: 04/28/18 08:56 Dose: 20 mg Potassium Phos/Sodium Phos (Neutra-Phos) 1 pkt PO TID [facility] Stop: 04/28/18 09:01 Last Admin: 04/28/18 08:56 Dose: 1 pkt Senna/Docusate Sodium (Senokot S 50 Mg-8.6 Mg) 2 tab PO HS [facility] Last Admin: 04/27/18 21:37 Dose: 2 tab Sucralfate (Carafate Oral Susp) 1 gm PO DAILY@1100 [facility] Last Admin: 04/27/18 11:15 Dose: 1 gm Zolpidem Tartrate (Ambien) 5 mg PO HS PRN PRN Reason: Anxiety Last Admin: 04/27/18 00:34 Dose: 5 mg - Labs Labs: 04/27/18 05:50 04/28/18 06:10 - Constitutional Appears: No Acute Distress - Head Exam Head Exam: NORMAL INSPECTION - Eye Exam Eye Exam: EOMI - ENT Exam ENT Exam: Mucous Membranes Moist - Respiratory Exam Respiratory Exam: Clear to Ausculation Bilateral, NORMAL BREATHING PATTERN. absent: Wheezes - Cardiovascular Exam Cardiovascular Exam: REGULAR RHYTHM, +S1, +S2 - GI/Abdominal Exam GI & Abdominal Exam: Soft, Normal Bowel Sounds. absent: Tenderness - Extremities Exam Extremities Exam: Pedal Edema (mild pedel edema ) Additional comments: Mild tenderness in the R thigh, non-tender in the L thigh Redness in L inner thigh improving-skin normal temp, excoration chappell - Neurological Exam Neurological Exam: Alert, Awake, Oriented x3 Assessment and Plan - Assessment and Plan (Free Text) Assessment: Assessment/Plan: 63 YO Female with small cell carcinoma is admitted for neutropenic fever after receiving one course of chemotherapy and a dose of granix 04/18. Neutropenic fever with pneumonia requiring IV abx. Neutropenic fever -likely 2/2 to chemotherapy -resolved -s/p daily granix 04/23-04/25 -Hem/on consult -Zosyn D6/7 and Vancomycin D3/4; ID consulted: Will d/c on oral abx such as avelox for few days. PE/DVT -CT chest 04/23: multiple small bilayteral acute appearing PE greatest in the lower lobes -U/s of the extremities 04/23: nonocclusive DVT involving 1 of the paired L posterior tibial veins -c/w theraputic lovenox 60mg SC Q12 -Per Dr. Saldaña will d/c pt will Eliquis for 6 months -Pulmonary on board: repeat CT chest today Small Cell carcinoma -on chemotherapy, nxt dose 05/02 -Pulmonary and hem/onc on board -pain management as needed Hypocalcemia, paraneoplastic syndrome -Hypocalcemia likely 2/2 to paraneoplastic syndrome -will replace as needed -repeat EKG today Leukocytosis -iatrogenic, 2/2 to granix -afebrile Pneumonia, LLL -CT chest 04/23; left lower lobe pneumonia -remains afebile -c/w Zosyn D6 and Vanc D4 -will consult ID, cnt IV abx 1-2 more days, PO on d/c -Repeat CT today Lower extremity pain -improving -likely 2/2 to carcinoma, not cellulitis -ID on board; antifungal cream TOP -cont pain management -PT/OT on consult Microcytic anemia -likely anemia of chronic disease -stable Anxiety -c/w Xanax 1mg PO HLD -c/w Atrovastatin 20mg DVT Tx
[2018-04-28] MEDS: Sucralfate 1 gm/10 ml Oral Susp UD PO SCH (11:28)
[2018-04-28] MEDS: Metoprolol Succinate 25 mg XL Tab PO SCH (11:29)
--- NOTE | 2018-04-28 14:02 | CP.PCM.PN ---
Subjective - Date & Time of Evaluation Date of Evaluation: 04/28/18 Time of Evaluation: 14:02 - Subjective Subjective: Id Note- Patient seen and examined today. She states she feels much better today because she had good BM yesterday. She she denies any fever or chils. denies any cough. denies any abd. pain. Objective - Vital Signs/Intake and Output Vital Signs (last 24 hours): Temp Pulse Resp BP Pulse Ox 98.1 F 87 20 145/74 93 L 04/28/18 07:50 04/28/18 11:29 04/28/18 07:50 04/28/18 11:29 04/28/18 07:50 - Medications Medications: Current Medications Alprazolam (Xanax) 1 mg PO TID PRN PRN Reason: Insomnia Last Admin: 04/28/18 08:52 Dose: 1 mg Atorvastatin Calcium (Lipitor) 20 mg PO DAILY [facility] Last Admin: 04/28/18 08:55 Dose: 20 mg Calcium Carbonate (Oscal) 500 mg PO BIDWM [facility] Last Admin: 04/28/18 08:56 Dose: 500 mg Clotrimazole (Lotrimin 1% Cream) 1 applic TOP BID [facility] Last Admin: 04/28/18 08:55 Dose: 1 appl Docusate Sodium (Colace) 100 mg PO BID [facility] Last Admin: 04/28/18 08:53 Dose: 100 mg Home Med (Desvenlafaxine Succinate [Pristiq]) 50 mg PO DAILY [facility] Last Admin: 04/28/18 08:53 Dose: 50 mg Piperacillin Sod/Tazobactam (Sod 4.5 gm/ Sodium Chloride) 100 mls @ 100 mls/hr IVPB Q6 [facility] PRN Reason: Protocol Last Admin: 04/28/18 09:03 Dose: 100 mls/hr Vancomycin HCl 1 gm/ Sodium (Chloride) 250 mls @ 166.667 mls/hr IVPB DAILY@ 2100 [facility] PRN Reason: Protocol Last Admin: 04/27/18 22:44 Dose: 166.667 mls/hr Ketorolac Tromethamine (Toradol) 30 mg IVP TID PRN PRN Reason: Pain, severe (8-10) Last Admin: 04/28/18 11:36 Dose: 30 mg Lidocaine (Lidoderm) 2 ea TD DAILY [facility] Last Admin: 04/28/18 08:54 Dose: 2 ea Metoprolol Succinate (Toprol Xl) 25 mg PO DAILY [facility] Last Admin: 04/28/18 11:29 Dose: 25 mg Morphine Sulfate (Morphine) 4 mg IVP Q6 PRN PRN Reason: Pain, severe (8-10) Last Admin: 04/27/18 21:35 Dose: 4 mg Ondansetron HCl (Zofran Inj) 4 mg IVP Q6 PRN PRN Reason: Nausea/Vomiting Pantoprazole Sodium (Protonix Ec Tab) 20 mg PO DAILY [facility] Last Admin: 04/28/18 08:56 Dose: 20 mg Senna/Docusate Sodium (Senokot S 50 Mg-8.6 Mg) 2 tab PO HS [facility] Last Admin: 04/27/18 21:37 Dose: 2 tab Sucralfate (Carafate Oral Susp) 1 gm PO DAILY@1100 [facility] Last Admin: 04/28/18 11:28 Dose: 1 gm Zolpidem Tartrate (Ambien) 5 mg PO HS PRN PRN Reason: Anxiety Last Admin: 04/27/18 00:34 Dose: 5 mg - Labs Labs: - Additional Findings Additional findings: Constitutional Appears: No Acute Distress - Head Exam Head Exam: ATRAUMATIC - Eye Exam Eye Exam: EOMI, PERRL - ENT Exam ENT Exam: Normal Oropharynx - Respiratory Exam Respiratory Exam: NORMAL BREATHING PATTERN Additional comments: no wheezing better breath sounds b/l - Cardiovascular Exam Cardiovascular Exam: RRR, +S1, +S2 - GI/Abdominal Exam GI & Abdominal Exam: Normal Bowel Sounds, Soft Additional comments: NT, ND - Extremities Exam Additional comments: no edema or erythema B/L LE decreased erythema of b/l upper medial thigh erythema blanching not warm - Neurological Exam Neurological exam: Alert, Oriented x 3 - Additional Findings Additional findings: left upper chest port site clean/ dry, no erythema Laboratory Results - last 72 hr 04/24/18 04/26/18 04/26/18 11:30 09:45 09:45 WBC 16.3 H D RBC 3.76 L Hgb 9.4 L Hct 29.2 L MCV 77.7 L D MCH 25.0 L MCHC 32.2 L RDW 16.8 H Plt Count 208 MPV 8.0 Neut % (Auto) 88.3 H Lymph % (Auto) 9.1 L Stafford % (Auto) 2.4 Eos % (Auto) 0.1 Baso % (Auto) 0.1 Neut # (Auto) 14.4 H Lymph # (Auto) 1.5 Stafford # (Auto) 0.4 Eos # (Auto) 0.0 Baso # (Auto) 0.0 Neutrophils % (Manual) 54 Band Neutrophils % 11 H* Lymphocytes % (Manual) 17 L Monocytes % (Manual) 8 Metamyelocytes % 5 H Myelocytes % 5 H Toxic Granulation Present Platelet Estimate Normal Plt Clumps, EDTA Present Large Platelets Present Giant Platelets Present Hypochromasia (manual) Slight Poikilocytosis (manual Slight Anisocytosis (manual) Slight Microcytosis (manual) Slight Sodium 138 Potassium 3.2 L Chloride 107 Carbon Dioxide 24 Anion Gap 10 BUN 13 Creatinine 0.9 Est GFR ( Amer) > 60 Est GFR (Non-Af Amer) > 60 POC Glucose (mg/dL) Random Glucose 125 H Calcium 6.9 L Ionized Calcium 3.5 L Phosphorus Magnesium Total Bilirubin AST ALT Alkaline Phosphatase Total Protein Albumin Globulin Albumin/Globulin Ratio Procalcitonin 04/26/18 04/26/18 04/27/18 09:45 15:44 05:50 WBC 20.6 H RBC 3.59 L Hgb 8.9 L Hct 28.0 L MCV 78.0 L MCH 24.9 L MCHC 31.9 L RDW 17.1 H Plt Count 188 MPV 8.3 Neut % (Auto) 86.1 H Lymph % (Auto) 8.4 L Stafford % (Auto) 5.3 Eos % (Auto) 0.1 Baso % (Auto) 0.1 Neut # (Auto) 17.8 H Lymph # (Auto) 1.7 Stafford # (Auto) 1.1 H Eos # (Auto) 0.0 Baso # (Auto) 0.0 Neutrophils % (Manual) Band Neutrophils % Lymphocytes % (Manual) Monocytes % (Manual) Metamyelocytes % Myelocytes % Toxic Granulation Platelet Estimate Plt Clumps, EDTA Large Platelets Giant Platelets Hypochromasia (manual) Poikilocytosis (manual Anisocytosis (manual) Microcytosis (manual) Sodium Potassium Chloride Carbon Dioxide Anion Gap BUN Creatinine Est GFR ( Amer) Est GFR (Non-Af Amer) POC Glucose (mg/dL) 109 Random Glucose Calcium Ionized Calcium Phosphorus Magnesium Total Bilirubin AST ALT Alkaline Phosphatase Total Protein Albumin Globulin Albumin/Globulin Ratio Procalcitonin 4.92 H 04/27/18 04/28/18 05:50 06:10 WBC RBC Hgb Hct MCV MCH MCHC RDW Plt Count MPV Neut % (Auto) Lymph % (Auto) Stafford % (Auto) Eos % (Auto) Baso % (Auto) Neut # (Auto) Lymph # (Auto) Stafford # (Auto) Eos # (Auto) Baso # (Auto) Neutrophils % (Manual) Band Neutrophils % Lymphocytes % (Manual) Monocytes % (Manual) Metamyelocytes % Myelocytes % Toxic Granulation Platelet Estimate Plt Clumps, EDTA Large Platelets Giant Platelets Hypochromasia (manual) Poikilocytosis (manual Anisocytosis (manual) Microcytosis (manual) Sodium 142 140 Potassium 3.5 L 3.2 L Chloride 108 H 104 Carbon Dioxide 24 30 Anion Gap 14 9 L BUN 9 8 Creatinine 0.8 0.8 Est GFR ( Amer) > 60 > 60 Est GFR (Non-Af Amer) > 60 > 60 POC Glucose (mg/dL) Random Glucose 93 98 Calcium 7.8 L 7.3 L Ionized Calcium Phosphorus 2.0 L 2.7 Magnesium 1.4 L 1.7 Total Bilirubin 0.6 AST 36 D ALT 36 Alkaline Phosphatase 233 H D Total Protein 6.0 L Albumin 2.8 L Globulin 3.3 Albumin/Globulin Ratio 0.9 L Procalcitonin Microbiology 04/23/18 03:20 Blood Blood Culture - Final NO GROWTH AFTER 5 DAYS 04/23/18 03:20 Blood Gram Stain - Final TEST NOT PERFORMED 04/23/18 03:50 Blood Blood Culture - Final NO GROWTH AFTER 5 DAYS 04/23/18 03:50 Blood Gram Stain - Final TEST NOT PERFORMED 04/23/18 17:56 Urine Urine Culture - Final No Growth (<1,000 CFU/ML) Accession No. : [id number] Patient Name / ID : IRENE LEMONS / [id number] Exam Date : 04/28/2018 12:54:59 ( Approved ) Study Comment : Sex / Age : F / 63Y Creator : Justin Nice MD Dictator : Justin Nice MD Life Manager : [employer] Guide : Justin Nice MD Approver2 : Report Date : 04/28/2018 14:01:32 My Comment : PROCEDURE: CT Chest without contrast HISTORY: pneumonia/lung ca COMPARISON: Chest CT angiogram 04/23/2018. TECHNIQUE: Contiguous axial images were obtained through the chest without intravenous contrast enhancement. Sagittal and coronal reconstructions were performed. Radiation dose (DLP): 246.95 mGy-cm. This CT exam was performed using one or more of the following dose reduction techniques: Automated exposure control, adjustment of the mA and/or kV according to patient size, and/or use of iterative reconstruction technique. FINDINGS: LUNGS: Left lower lobe dependent atelectasis or infiltrate persists though somewhat diminished at its superior extent than previously shown. Linear atelectasis identified in the right lower lobe base. Centrilobular emphysematous changes are reiterated though they are again seen mild the large right upper lobe mass stable appearance measuring 6.3 x 5.9 x 6.0 cm with peripheral lobular margins reiterated. Several secondary and tertiary right upper lobe bronchi are encased. The 7 x 5 mm nodule of the right lower lobe lateral to the right hemidiaphragm is not favored in likely as a result of atelectasis as it was not seen in the prior CT and is large enough with 2.5 mm contiguous sections to definitively capture the study being averaged out of the images. Central airways remain patent with no endoluminal lesion appreciable. Thoracic inlet reflects left MediPort deployment once again terminating at cavoatrial junction. MEDIASTINUM: Unremarkable thoracic aorta. No aneurysm. Normal sized heart. Main pulmonary artery unremarkable. No vascular congestion. Shotty mediastinal lymph nodes reiterated without significant lymphadenopathy grossly evident. PLEURA: No pleural fluid. No pneumothorax. BONES: No fracture. No destructive lesion. UPPER ABDOMEN: Grossly unremarkable. OTHER FINDINGS: None. IMPRESSION: 1. Diminishing left lower lobe pneumonia or atelectasis. 2. Stable right upper lobe suprahilar mass none to represent small cell lung cancer. 3. 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 afebrile past 4 days. leukocytosis now s/p Granix found to have LLE dvt and small PE and LLL pneumonias as per Ct reports. blood cx- neg x 2 urine cx- negative repeat chest Ct- much improved LLL pneumonia as per report. plan- advise to continue with IV zosyn day #6 and IV vanco day #3. would advise 1 more day of IV abx and after that if patient is being d/c home she can be d/c on oral abx such as avelox for few days . anticoagulation for DVT and PE as per oncologist and primary doctor. upper inner thigh erythema most likley secondary to chafing ( not c/w cellulitis ) and is improved with antifungal ointment. advise to make sure wears cotton underwear and continue with antifungal ointment to the region BID for few days as outpatient as well. all above d/w the oncologist and the family practice team.
--- NOTE | 2018-04-28 14:08 | CT ---
PROCEDURE: CT Chest without contrast HISTORY: pneumonia/lung ca COMPARISON: Chest CT angiogram 04/23/2018. TECHNIQUE: Contiguous axial images were obtained through the chest without intravenous contrast enhancement. Sagittal and coronal reconstructions were performed. Radiation dose (DLP): 246.95 mGy-cm. This CT exam was performed using one or more of the following dose reduction techniques: Automated exposure control, adjustment of the mA and/or kV according to patient size, and/or use of iterative reconstruction technique. FINDINGS: LUNGS: Left lower lobe dependent atelectasis or infiltrate persists though somewhat diminished at its superior extent than previously shown. Linear atelectasis identified in the right lower lobe base. Centrilobular emphysematous changes are reiterated though they are again seen mild the large right upper lobe mass stable appearance measuring 6.3 x 5.9 x 6.0 cm with peripheral lobular margins reiterated. Several secondary and tertiary right upper lobe bronchi are encased. The 7 x 5 mm nodule of the right lower lobe lateral to the right hemidiaphragm is not favored in likely as a result of atelectasis as it was not seen in the prior CT and is large enough with 2.5 mm contiguous sections to definitively capture the study being averaged out of the images. Central airways remain patent with no endoluminal lesion appreciable. Thoracic inlet reflects left MediPort deployment once again terminating at cavoatrial junction. MEDIASTINUM: Unremarkable thoracic aorta. No aneurysm. Normal sized heart. Main pulmonary artery unremarkable. No vascular congestion. Shotty mediastinal lymph nodes reiterated without significant lymphadenopathy grossly evident. PLEURA: No pleural fluid. No pneumothorax. BONES: No fracture. No destructive lesion. UPPER ABDOMEN: Grossly unremarkable. OTHER FINDINGS: None. IMPRESSION: 1. Diminishing left lower lobe pneumonia or atelectasis. 2. Stable right upper lobe suprahilar mass none to represent small cell lung cancer. 3. Effacement of secondary tertiary upper lobe airways reiterated.
--- NOTE | 2018-04-28 15:08 | CP.PCM.PN ---
Subjective - Date & Time of Evaluation Date of Evaluation: 04/28/18 Time of Evaluation: 14:59 - Subjective Subjective: The patient was seen earlier in the day on rounds in the medical unit. She appears comfortable and is apparently getting stronger. She was able to participate with physical therapy and ambulate in her room yesterday. He does not complain of any chest pain or cough presently. Her vital signs remained stable and she continues to be afebrile. She was able to have a bowel movement yesterday after having suppository. There is no CBC from this morning but her chemistries are reviewed and show a low potassium at 3.2. Of note his alkaline phosphatase of 233 on this morning' s testing. Discordant findings between a recent PET scan done at another facility, and a bone scan done 2 days ago and will be reviewed with the radiologist. She has done well on the current antibiotic regimen and will continue for another day receiving ZOSYN and VANCOMYCIN after which she apparently will be switched to an oral agent and discharged home. She is scheduled for chemotherapy again on Wednesday. Objective - Vital Signs/Intake and Output Vital Signs (last 24 hours): Temp Pulse Resp BP Pulse Ox 98.1 F 87 20 145/74 93 L 04/28/18 07:50 04/28/18 11:29 04/28/18 07:50 04/28/18 11:29 04/28/18 07:50 - Medications Medications: Current Medications Alprazolam (Xanax) 1 mg PO TID PRN PRN Reason: Insomnia Last Admin: 04/28/18 08:52 Dose: 1 mg Atorvastatin Calcium (Lipitor) 20 mg PO DAILY [facility] Last Admin: 04/28/18 08:55 Dose: 20 mg Calcium Carbonate (Oscal) 500 mg PO BIDWM [facility] Last Admin: 04/28/18 08:56 Dose: 500 mg Clotrimazole (Lotrimin 1% Cream) 1 applic TOP BID [facility] Last Admin: 04/28/18 08:55 Dose: 1 appl Docusate Sodium (Colace) 100 mg PO BID [facility] Last Admin: 04/28/18 08:53 Dose: 100 mg Home Med (Desvenlafaxine Succinate [Pristiq]) 50 mg PO DAILY [facility] Last Admin: 04/28/18 08:53 Dose: 50 mg Piperacillin Sod/Tazobactam (Sod 4.5 gm/ Sodium Chloride) 100 mls @ 100 mls/hr IVPB Q6 [facility] PRN Reason: Protocol Last Admin: 04/28/18 09:03 Dose: 100 mls/hr Vancomycin HCl 1 gm/ Sodium (Chloride) 250 mls @ 166.667 mls/hr IVPB DAILY@ 2100 [facility] PRN Reason: Protocol Last Admin: 04/27/18 22:44 Dose: 166.667 mls/hr Ketorolac Tromethamine (Toradol) 30 mg IVP TID PRN PRN Reason: Pain, severe (8-10) Last Admin: 04/28/18 11:36 Dose: 30 mg Lidocaine (Lidoderm) 2 ea TD DAILY [facility] Last Admin: 04/28/18 08:54 Dose: 2 ea Metoprolol Succinate (Toprol Xl) 25 mg PO DAILY [facility] Last Admin: 04/28/18 11:29 Dose: 25 mg Morphine Sulfate (Morphine) 4 mg IVP Q6 PRN PRN Reason: Pain, severe (8-10) Last Admin: 04/27/18 21:35 Dose: 4 mg Ondansetron HCl (Zofran Inj) 4 mg IVP Q6 PRN PRN Reason: Nausea/Vomiting Pantoprazole Sodium (Protonix Ec Tab) 20 mg PO DAILY [facility] Last Admin: 04/28/18 08:56 Dose: 20 mg Senna/Docusate Sodium (Senokot S 50 Mg-8.6 Mg) 2 tab PO HS [facility] Last Admin: 04/27/18 21:37 Dose: 2 tab Sucralfate (Carafate Oral Susp) 1 gm PO DAILY@1100 [facility] Last Admin: 04/28/18 11:28 Dose: 1 gm Zolpidem Tartrate (Ambien) 5 mg PO HS PRN PRN Reason: Anxiety Last Admin: 04/27/18 00:34 Dose: 5 mg - Labs Labs: 04/27/18 05:50 04/28/18 06:10 Assessment and Plan (1) Deep vein thrombosis (DVT) Status: Acute (2) Acute pulmonary embolism Status: Acute (3) 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
[2018-04-28] MEDS: Docusate-Senna 50 mg-8.6 mg Tab PO SCH (21:06)
[2018-04-29] MEDS: Piperacillin/Tazobact 4.5 GM in Sodium Chloride 0.9% 100 ML IVPB SCH ×3 (03:28→15:01)
[2018-04-29 06:55] LABS: BASO # 0.1 K/uL (0.0-0.2); BASO % 0.4 % (0.0-2.0); HEMOGLOBIN 9.6 g/dL (12.0-16.0); LYMPH # 2.3 K/uL (1.0-4.3); LYMPH % 7.5 % (20.0-40.0); MEAN CELL VOLUME 76.9 fl (81.0-99.0); MEAN CORPUSCULAR HEMOGLOBIN 24.9 pg (27.0-31.0); MEAN CORPUSCULAR HGB CONC 32.4 g/dL (33.0-37.0); MONO # 3.2 K/uL (0.0-0.8); MONO % 10.6 % (0.0-10.0); NEUT # 24.7 K/uL (1.8-7.0); NEUT % 81.5 % (50.0-75.0); RBC 3.86 Mil/uL (3.80-5.20); RED CELL DISTRIBUTION WIDTH 17.3 % (11.5-14.5); WHITE BLOOD COUNT 30.4 K/uL (4.8-10.8)
[2018-04-29 07:02] LABS: BLOOD UREA NITROGEN 7 mg/dl (7-17); CALCIUM 7.3 mg/dL (8.4-10.2); GFR AFRICAN-AMERICAN > 60; GFR NON-AFRICAN AMERICAN > 60
--- NOTE | 2018-04-29 08:31 | CARD ---
APPROVED REPORT EKG Measurement Heart [id number] ID [id number] <Conclusion> Sinus tachycardia Left axis deviation T wave abnormality, consider lateral ischemia Abnormal ECG
[2018-04-29] MEDS: Pantoprazole 20 mg EC Tab PO SCH (08:54)
[2018-04-29] MEDS: Metoprolol Succinate 25 mg XL Tab PO SCH (08:54)
[2018-04-29] MEDS: Lidocaine 5% Patch TD SCH (08:56)
[2018-04-29] MEDS ORDERED: Potassium Chloride 20 mEq ER Tab PO SCH ×2 (09:00→17:00)
--- NOTE | 2018-04-29 09:26 | CP.PCM.PN ---
Subjective - Date & Time of Evaluation Date of Evaluation: 04/29/18 Time of Evaluation: 09:24 - Subjective Subjective: No acute overnight events. Pt states that she is feeling well this AM. Leg pain has significantly improved, no longer using any supplement O2. Breathing normally in RA. Objective - Vital Signs/Intake and Output Vital Signs (last 24 hours): Temp Pulse Resp BP Pulse Ox 98.5 F 103 H 19 150/74 95 04/29/18 07:51 04/29/18 08:54 04/29/18 07:51 04/29/18 08:54 04/29/18 07:51 - Medications Medications: Current Medications Alprazolam (Xanax) 1 mg PO TID PRN PRN Reason: Insomnia Last Admin: 04/28/18 08:52 Dose: 1 mg Apixaban (Eliquis) 10 mg PO BID [facility] PRN Reason: Protocol Atorvastatin Calcium (Lipitor) 20 mg PO DAILY [facility] Last Admin: 04/29/18 08:55 Dose: 20 mg Calcium Carbonate (Oscal) 500 mg PO BIDWM [facility] Last Admin: 04/29/18 08:55 Dose: 500 mg Clotrimazole (Lotrimin 1% Cream) 1 applic TOP BID [facility] Last Admin: 04/29/18 08:54 Dose: 1 appl Docusate Sodium (Colace) 100 mg PO BID [facility] Last Admin: 04/29/18 08:55 Dose: 100 mg Home Med (Desvenlafaxine Succinate [Pristiq]) 50 mg PO DAILY [facility] Last Admin: 04/29/18 08:54 Dose: 50 mg Piperacillin Sod/Tazobactam (Sod 4.5 gm/ Sodium Chloride) 100 mls @ 100 mls/hr IVPB Q6 [facility] PRN Reason: Protocol Last Admin: 04/29/18 03:28 Dose: 100 mls/hr Vancomycin HCl 1 gm/ Sodium (Chloride) 250 mls @ 166.667 mls/hr IVPB DAILY@ 2100 [facility] PRN Reason: Protocol Last Admin: 04/28/18 22:17 Dose: 166.667 mls/hr Ketorolac Tromethamine (Toradol) 30 mg IVP TID PRN PRN Reason: Pain, severe (8-10) Last Admin: 04/28/18 11:36 Dose: 30 mg Lidocaine (Lidoderm) 2 ea TD DAILY [facility] Last Admin: 04/29/18 08:56 Dose: 2 ea Metoprolol Succinate (Toprol Xl) 25 mg PO DAILY [facility] Last Admin: 04/29/18 08:54 Dose: 25 mg Morphine Sulfate (Morphine) 4 mg IVP Q6 PRN PRN Reason: Pain, severe (8-10) Last Admin: 04/29/18 06:00 Dose: 4 mg Ondansetron HCl (Zofran Inj) 4 mg IVP Q6 PRN PRN Reason: Nausea/Vomiting Pantoprazole Sodium (Protonix Ec Tab) 20 mg PO DAILY [facility] Last Admin: 04/29/18 08:54 Dose: 20 mg Potassium Chloride (K-Dur 20 Meq Er Tab) 40 meq PO BID [facility] Senna/Docusate Sodium (Senokot S 50 Mg-8.6 Mg) 2 tab PO HS [facility] Last Admin: 04/28/18 21:06 Dose: 2 tab Sucralfate (Carafate Oral Susp) 1 gm PO DAILY@1100 [facility] Last Admin: 04/28/18 11:28 Dose: 1 gm Zolpidem Tartrate (Ambien) 5 mg PO HS PRN PRN Reason: Anxiety Last Admin: 04/28/18 21:09 Dose: 5 mg - Labs Labs: 04/29/18 06:42 04/29/18 06:42 - Constitutional Appears: No Acute Distress - Head Exam Head Exam: NORMAL INSPECTION - Eye Exam Eye Exam: EOMI - ENT Exam ENT Exam: Mucous Membranes Moist - Respiratory Exam Respiratory Exam: Rhonchi (mild in the lower lobes), NORMAL BREATHING PATTERN - Cardiovascular Exam Cardiovascular Exam: REGULAR RHYTHM, +S1, +S2 - GI/Abdominal Exam GI & Abdominal Exam: Soft, Normal Bowel Sounds. absent: Tenderness - Extremities Exam Extremities Exam: Calf Tenderness (mild, sig improvement ) - Back Exam Back Exam: NORMAL INSPECTION - Neurological Exam Neurological Exam: Alert, Awake, Oriented x3 - Psychiatric Exam Psychiatric exam: Normal Affect, Normal Mood Assessment and Plan - Assessment and Plan (Free Text) Assessment: Assessment/Plan: 63 YO Female with small cell carcinoma is admitted for neutropenic fever after receiving one course of chemotherapy and a dose of granix 04/18. Neutropenic fever with pneumonia requiring IV abx. Neutropenic fever -likely 2/2 to chemotherapy -resolved -s/p daily granix 04/23-04/25 -Hem/on consult -Zosyn D7/7 and Vancomycin D4/4; ID consulted: Will d/c on oral abx . PE/DVT -CT chest 04/23: multiple small bilayteral acute appearing PE greatest in the lower lobes -U/s of the extremities 04/23: nonocclusive DVT involving 1 of the paired L posterior tibial veins -c/w theraputic lovenox 60mg SC Q12 -Per Dr. Saldaña will d/c pt will [facility] for 6 months -Pulmonary on board: repeat CT chest today Small Cell carcinoma -on chemotherapy, nxt dose 05/02 -Pulmonary and hem/onc on board -pain management as needed Hypocalcemia, paraneoplastic syndrome -Hypocalcemia likely 2/2 to paraneoplastic syndrome -will replace as needed -repeat EKG today Prolog QT -QTc prolongation on EKG -stable -likely 2/2 chemotherapy and electrolyte imbalance -c/w Metropolol 25mg Daily -ekg repeat today Leukocytosis -iatrogenic, 2/2 to granix -afebrile Pneumonia, LLL -CT chest 04/23; left lower lobe pneumonia -remains afebile -c/w Zosyn D7 and Vanc D4 -will consult ID, cnt IV abx 1-2 more days, PO on d/c -Repeat CT today Lower extremity pain -improving -likely 2/2 to carcinoma, not cellulitis -ID on board; antifungal cream TOP -cont pain management -PT/OT on consult Microcytic anemia -likely anemia of chronic disease -stable Anxiety -c/w Xanax 1mg PO HLD -c/w Atrovastatin 20mg DVT Tx
[2018-04-29] MEDS: Sucralfate 1 gm/10 ml Oral Susp UD PO SCH (11:03)
--- NOTE | 2018-04-29 11:32 | CP.PCM.PN ---
Subjective - Date & Time of Evaluation Date of Evaluation: 04/29/18 Time of Evaluation: 11:32 - Subjective Subjective: ID note- Patient seen and examined today. pt. in good spirits and states she feels well. denies any fever or chills. denies any cough or sob. Objective - Vital Signs/Intake and Output Vital Signs (last 24 hours): Temp Pulse Resp BP Pulse Ox 98.5 F 103 H 19 150/74 95 04/29/18 09:00 04/29/18 09:00 04/29/18 09:00 04/29/18 09:00 04/29/18 09:00 - Medications Medications: Current Medications Alprazolam (Xanax) 1 mg PO TID PRN PRN Reason: Insomnia Last Admin: 04/28/18 08:52 Dose: 1 mg Apixaban (Eliquis) 10 mg PO BID [facility] PRN Reason: Protocol Atorvastatin Calcium (Lipitor) 20 mg PO DAILY [facility] Last Admin: 04/29/18 08:55 Dose: 20 mg Calcium Carbonate (Oscal) 500 mg PO BIDWM [facility] Last Admin: 04/29/18 08:55 Dose: 500 mg Clotrimazole (Lotrimin 1% Cream) 1 applic TOP BID [facility] Last Admin: 04/29/18 08:54 Dose: 1 appl Docusate Sodium (Colace) 100 mg PO BID [facility] Last Admin: 04/29/18 08:55 Dose: 100 mg Home Med (Desvenlafaxine Succinate [Pristiq]) 50 mg PO DAILY [facility] Last Admin: 04/29/18 08:54 Dose: 50 mg Piperacillin Sod/Tazobactam (Sod 4.5 gm/ Sodium Chloride) 100 mls @ 100 mls/hr IVPB Q6 [facility] PRN Reason: Protocol Last Admin: 04/29/18 10:16 Dose: 100 mls/hr Vancomycin HCl 1 gm/ Sodium (Chloride) 250 mls @ 166.667 mls/hr IVPB DAILY@ 2100 [facility] PRN Reason: Protocol Last Admin: 04/28/18 22:17 Dose: 166.667 mls/hr Ketorolac Tromethamine (Toradol) 30 mg IVP TID PRN PRN Reason: Pain, severe (8-10) Last Admin: 04/28/18 11:36 Dose: 30 mg Lidocaine (Lidoderm) 2 ea TD DAILY [facility] Last Admin: 04/29/18 08:56 Dose: 2 ea Metoprolol Succinate (Toprol Xl) 25 mg PO DAILY [facility] Last Admin: 04/29/18 08:54 Dose: 25 mg Morphine Sulfate (Morphine) 2 mg IVP Q6 PRN PRN Reason: Pain, severe (8-10) Ondansetron HCl (Zofran Inj) 4 mg IVP Q6 PRN PRN Reason: Nausea/Vomiting Pantoprazole Sodium (Protonix Ec Tab) 20 mg PO DAILY [facility] Last Admin: 04/29/18 08:54 Dose: 20 mg Potassium Chloride (K-Dur 20 Meq Er Tab) 40 meq PO BID [facility] Senna/Docusate Sodium (Senokot S 50 Mg-8.6 Mg) 2 tab PO HS [facility] Last Admin: 04/28/18 21:06 Dose: 2 tab Sucralfate (Carafate Oral Susp) 1 gm PO DAILY@1100 [facility] Last Admin: 04/29/18 11:03 Dose: 1 gm Zolpidem Tartrate (Ambien) 5 mg PO HS PRN PRN Reason: Anxiety Last Admin: 04/28/18 21:09 Dose: 5 mg - Labs Labs: - Additional Findings Additional findings: Constitutional Appears: No Acute Distress - Head Exam Head Exam: ATRAUMATIC - Eye Exam Eye Exam: EOMI, PERRL - ENT Exam ENT Exam: Normal Oropharynx - Respiratory Exam Respiratory Exam: NORMAL BREATHING PATTERN Additional comments: no wheezing better breath sounds b/l - Cardiovascular Exam Cardiovascular Exam: RRR, +S1, +S2 - GI/Abdominal Exam GI & Abdominal Exam: Normal Bowel Sounds, Soft Additional comments: NT, ND - Extremities Exam Additional comments: no edema or erythema B/L LE resolved erythema of b/l upper medial thigh erythema - Neurological Exam Neurological exam: Alert, Oriented x 3 - Additional Findings Additional findings: left upper chest port site clean/ dry, no erythema Laboratory Results - last 72 hr 04/26/18 04/26/18 04/27/18 09:45 15:44 05:50 WBC 20.6 H RBC 3.59 L Hgb 8.9 L Hct 28.0 L MCV 78.0 L MCH 24.9 L MCHC 31.9 L RDW 17.1 H Plt Count 188 MPV 8.3 Neut % (Auto) 86.1 H Lymph % (Auto) 8.4 L Leslie % (Auto) 5.3 Eos % (Auto) 0.1 Baso % (Auto) 0.1 Neut # (Auto) 17.8 H Lymph # (Auto) 1.7 Leslie # (Auto) 1.1 H Eos # (Auto) 0.0 Baso # (Auto) 0.0 Sodium Potassium Chloride Carbon Dioxide Anion Gap BUN Creatinine Est GFR ( Amer) Est GFR (Non-Af Amer) POC Glucose (mg/dL) 109 Random Glucose Calcium Phosphorus Magnesium Total Bilirubin AST ALT Alkaline Phosphatase Total Protein Albumin Globulin Albumin/Globulin Ratio Procalcitonin 4.92 H 04/27/18 04/28/18 04/29/18 05:50 06:10 06:42 WBC 30.4 H RBC 3.86 Hgb 9.6 L Hct 29.7 L MCV 76.9 L MCH 24.9 L MCHC 32.4 L RDW 17.3 H Plt Count 216 MPV 9.0 Neut % (Auto) 81.5 H Lymph % (Auto) 7.5 L Leslie % (Auto) 10.6 H Eos % (Auto) 0.0 Baso % (Auto) 0.4 Neut # (Auto) 24.7 H Lymph # (Auto) 2.3 Leslie # (Auto) 3.2 H Eos # (Auto) 0.0 Baso # (Auto) 0.1 Sodium 142 140 Potassium 3.5 L 3.2 L Chloride 108 H 104 Carbon Dioxide 24 30 Anion Gap 14 9 L BUN 9 8 Creatinine 0.8 0.8 Est GFR ( Amer) > 60 > 60 Est GFR (Non-Af Amer) > 60 > 60 POC Glucose (mg/dL) Random Glucose 93 98 Calcium 7.8 L 7.3 L Phosphorus 2.0 L 2.7 Magnesium 1.4 L 1.7 Total Bilirubin 0.6 AST 36 D ALT 36 Alkaline Phosphatase 233 H D Total Protein 6.0 L Albumin 2.8 L Globulin 3.3 Albumin/Globulin Ratio 0.9 L Procalcitonin 04/29/18 06:42 WBC RBC Hgb Hct MCV MCH MCHC RDW Plt Count MPV Neut % (Auto) Lymph % (Auto) Leslie % (Auto) Eos % (Auto) Baso % (Auto) Neut # (Auto) Lymph # (Auto) Leslie # (Auto) Eos # (Auto) Baso # (Auto) Sodium 141 Potassium 2.8 L Chloride 104 Carbon Dioxide 28 Anion Gap 12 BUN 7 Creatinine 0.7 Est GFR ( Amer) > 60 Est GFR (Non-Af Amer) > 60 POC Glucose (mg/dL) Random Glucose 108 H Calcium 7.3 L Phosphorus Magnesium Total Bilirubin AST ALT Alkaline Phosphatase Total Protein Albumin Globulin Albumin/Globulin Ratio Procalcitonin Microbiology 04/23/18 03:20 Blood Blood Culture - Final NO GROWTH AFTER 5 DAYS 04/23/18 03:20 Blood Gram Stain - Final TEST NOT PERFORMED 04/23/18 03:50 Blood Blood Culture - Final NO GROWTH AFTER 5 DAYS 04/23/18 03:50 Blood Gram Stain - Final TEST NOT PERFORMED 04/23/18 17:56 Urine Urine Culture - Final No Growth (<1,000 CFU/ML) Assessment and Plan (1) Acute pulmonary embolism Status: Acute (2) Deep vein thrombosis (DVT) Status: Acute (3) 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 afebrile past 5 days. leukocytosis now s/p Granix found to have LLE dvt and small PE and LLL pneumonias as per Ct reports. blood cx- neg x 2 urine cx- negative repeat chest Ct- much improved LLL pneumonia as per report. plan- has completed 7 days of IV zosyna nd 4 days of IV vancomycin today. if patient is being d/c home she can be d/c on oral augmentin 875 mg BID for another 7 days as outpatient. ( was notified pt. has slight QT prolongation and hence avoid quinolones). anticoagulation for DVT and PE as per oncologist and primary doctor. advised pt. if she develops any fever or any cough or sob to notify her PMD and oncologist and/or return to ER. Patient verbalizes full understanding of all above and agrees with above plan of care. all above d/w the oncologist and the family practice team.
--- NOTE | 2018-04-29 11:56 | CP.PCM.DIS ---
Provider - Provider Date of Admission: 04/23/18 04:15 Attending physician: Kimberli Willoughby MD Consults: Hem/Onc: Dr. Saldaña Pulmonary: Dr. Burgess ID: Dr. Joyce Time Spent in preparation of Discharge (in minutes): 30 Hospital Course - Lab Results Lab Results: Micro Results 04/23/18 03:20 Blood Blood Culture - Final NO GROWTH AFTER 5 DAYS 04/23/18 03:20 Blood Gram Stain - Final TEST NOT PERFORMED 04/23/18 03:50 Blood Blood Culture - Final NO GROWTH AFTER 5 DAYS 04/23/18 03:50 Blood Gram Stain - Final TEST NOT PERFORMED 04/23/18 17:56 Urine Urine Culture - Final No Growth (<1,000 CFU/ML) Most Recent Lab Values WBC 30.4 K/uL (4.8-10.8) H 04/29/18 06:42 RBC 3.86 Mil/uL (3.80-5.20) 04/29/18 06:42 Hgb 9.6 g/dL (12.0-16.0) L 04/29/18 06:42 Hct 29.7 % (34.0-47.0) L 04/29/18 06:42 MCV 76.9 fl (81.0-99.0) L 04/29/18 06:42 MCH 24.9 pg (27.0-31.0) L 04/29/18 06:42 MCHC 32.4 g/dL (33.0-37.0) L 04/29/18 06:42 RDW 17.3 % (11.5-14.5) H 04/29/18 06:42 Plt Count 216 K/uL (130-400) 04/29/18 06:42 MPV 9.0 fl (7.2-11.7) 04/29/18 06:42 Neut % (Auto) 81.5 % (50.0-75.0) H 04/29/18 06:42 Lymph % (Auto) 7.5 % (20.0-40.0) L 04/29/18 06:42 [place] % (Auto) 10.6 % (0.0-10.0) H 04/29/18 06:42 Eos % (Auto) 0.0 % (0.0-4.0) 04/29/18 06:42 Baso % (Auto) 0.4 % (0.0-2.0) 04/29/18 06:42 Neut # (Auto) 24.7 K/uL (1.8-7.0) H 04/29/18 06:42 Lymph # (Auto) 2.3 K/uL (1.0-4.3) 04/29/18 06:42 [place] # (Auto) 3.2 K/uL (0.0-0.8) H 04/29/18 06:42 Eos # (Auto) 0.0 K/uL (0.0-0.7) 04/29/18 06:42 Baso # (Auto) 0.1 K/uL (0.0-0.2) 04/29/18 06:42 Neutrophils % (Manual) 54 % (42-75) 04/26/18 09:45 Band Neutrophils % 11 % (0-2) H* 04/26/18 09:45 Lymphocytes % (Manual) 17 % (20-50) L 04/26/18 09:45 Monocytes % (Manual) 8 % (0-10) 04/26/18 09:45 Eosinophils % (Manual) 4 % (0-7) 04/24/18 08:40 Metamyelocytes % 5 % (0-0) H 04/26/18 09:45 Myelocytes % 5 % (0-0) H 04/26/18 09:45 Toxic Granulation Present 04/26/18 09:45 Platelet Estimate Normal (NORMAL) 04/26/18 09:45 Plt Clumps, EDTA Present 04/26/18 09:45 Large Platelets Present 04/26/18 09:45 Giant Platelets Present 04/26/18 09:45 Hypochromasia (manual) Slight 04/26/18 09:45 Poikilocytosis (manual Slight 04/26/18 09:45 Anisocytosis (manual) Slight 04/26/18 09:45 Microcytosis (manual) Slight 04/26/18 09:45 Macrocytosis (manual) Slight 04/24/18 08:40 Ovalocytes Moderate 04/24/18 08:40 Rouleaux Slight 04/23/18 01:20 pO2 17 mm/Hg (30-55) L 04/23/18 03:04 VBG pH 7.38 (7.32-7.43) 04/23/18 03:04 VBG pCO2 43 mmHg (40-60) 04/23/18 03:04 VBG HCO3 23.4 mmol/L 04/23/18 03:04 VBG Total CO2 26.7 mmol/L (22-28) 04/23/18 03:04 VBG O2 Sat (Calc) 20.6 % (40-65) L 04/23/18 03:04 VBG Base Excess 0.1 mmol/L (0.0-2.0) 04/23/18 03:04 VBG Potassium 3.8 mmol/L (3.6-5.2) 04/23/18 03:04 Sodium 134.0 mmol/L (132-148) 04/23/18 03:04 Chloride 104.0 mmol/L (98-107) 04/23/18 03:04 Glucose 132 mg/dL (65-105) H 04/23/18 03:04 Lactate 1.4 mmol/L (0.7-2.1) 04/23/18 03:04 FiO2 21.0 % 04/23/18 03:04 Sodium 141 mmol/l (132-148) 04/29/18 06:42 Potassium 2.8 MMOL/L (3.6-5.0) L 04/29/18 06:42 Chloride 104 mmol/L (98-107) 04/29/18 06:42 Carbon Dioxide 28 mmol/L (22-30) 04/29/18 06:42 Anion Gap 12 (10-20) 04/29/18 06:42 BUN 7 mg/dl (7-17) 04/29/18 06:42 Creatinine 0.7 mg/dl (0.7-1.2) 04/29/18 06:42 Est GFR ( Amer) > 60 04/29/18 06:42 Est GFR (Non-Af Amer) > 60 04/29/18 06:42 POC Glucose (mg/dL) 109 mg/dL (65-110) 04/26/18 15:44 Random Glucose 108 mg/dL (65-105) H 04/29/18 06:42 Calcium 7.3 mg/dL (8.4-10.2) L 04/29/18 06:42 Ionized Calcium 3.5 mg/dL (4.80-5.60) L 04/24/18 11:30 Phosphorus 2.7 mg/dl (2.5-4.5) 04/28/18 06:10 Magnesium 1.7 MG/DL (1.6-2.3) 04/28/18 06:10 Total Bilirubin 0.6 mg/dl (0.2-1.3) 04/28/18 06:10 AST 36 U/L (14-36) D 04/28/18 06:10 ALT 36 U/L (9-52) 04/28/18 06:10 Alkaline Phosphatase 233 U/L (38-126) H D 04/28/18 06:10 Total Protein 6.0 G/DL (6.3-8.2) L 04/28/18 06:10 Albumin 2.8 g/dL (3.5-5.0) L 04/28/18 06:10 Globulin 3.3 gm/dL (2.2-3.9) 04/28/18 06:10 Albumin/Globulin Ratio 0.9 (1.0-2.1) L 04/28/18 06:10 Procalcitonin 4.92 NG/ML (0.19-0.49) H 04/26/18 09:45 Venous Blood Potassium 3.8 mmol/L (3.6-5.2) 04/23/18 03:04 Urine Color Yellow (YELLOW) 04/23/18 17:56 Urine Clarity Cloudy (Clear) 04/23/18 17:56 Urine pH 5.0 (5.0-8.0) 04/23/18 17:56 Ur Specific [place] 1.019 (1.003-1.030) 04/23/18 17:56 Urine Protein 30 mg/dL (NEGATIVE) 04/23/18 17:56 Urine Glucose (UA) Neg mg/dL (Normal) 04/23/18 17:56 Urine Ketones Negative mg/dL (NEGATIVE) 04/23/18 17:56 Urine Blood Small (NEGATIVE) 04/23/18 17:56 Urine Nitrate Negative (NEGATIVE) 04/23/18 17:56 Urine Bilirubin Negative (NEGATIVE) 04/23/18 17:56 Urine Urobilinogen 0.2-1.0 mg/dL (0.2-1.0) 04/23/18 17:56 Ur Leukocyte Esterase Neg [place]/uL (Negative) 04/23/18 17:56 Urine RBC (Auto) 12 /hpf (0-3) H 04/23/18 17:56 Urine Microscopic WBC 5 /hpf (0-5) 04/23/18 17:56 Ur Squamous Epith Cells 2 /hpf (0-5) 04/23/18 17:56 - Hospital Course Hospital Course: 63 YO Female with small cell carcinoma is admitted for neutropenic fever post chemotherapy on 04/18. Pt was found to be severely neutropenic, s/p tx with granix x3 dose after which neutropenia resolved. Incidental finding of hypocalcemia, with prolong Qtc; electrolyte was replaced, QTc currently improving. Additionally, pt was found to have a DVT with small PE's and pneumonia (LLL) on imaging, currently under treatment with therapeutic lovenox, per hem/onc will d/c home with 6 months of Eliquis. S/p treatment with IV abx x 7 days zosyn and 4 days of Vanc. Will d/c pt home with new meds eliquis x 6 months, augmentin x 7 days and Metropolol 25mg PO. Follow up with Dr. O[place]o in [address] Saldaña on Wednesday05/02/18. Meds: Atorvastatin Calcium (Lipitor) 20 mg PO Calcium Carbonate (Oscal) 1000 mg PO Clotrimazole (Lotrimin 1% Cream) 1 applic TOP Home Med (Desvenlafaxine Succinate [Pristiq]) 50 mg Metropolol 25mg PO Zolpidem Tartrate (Ambien) 5 mg PO HS PRN Augmentin 875mg PO x 7 days Alprazolam (Xanax) 1 mg PO TID PRN Sucralfate (Carafate Oral Susp) 1 gm PO DAILY Discharge Exam - Head Exam Head Exam: NORMAL INSPECTION - Eye Exam Eye Exam: EOMI, Normal appearance - Respiratory Exam Respiratory Exam: Clear to PA & Lateral, Rhonchi (mild, lower lobes ), NORMAL BREATHING PATTERN. absent: Chest Wall Tenderness - Cardiovascular Exam Cardiovascular Exam: REGULAR RHYTHM, +S1, +S2 - GI/Abdominal Exam GI & Abdominal Exam: Normal Bowel Sounds, Soft. absent: Tenderness - Extremities Exam Extremities exam: tenderness (mild b/l thigh tenderness ) Additional comments: mild erythema in the inner thigh b/l, improving - Back Exam Back exam: NORMAL INSPECTION. absent: CVA tenderness (L), CVA tenderness (R) - Neurological Exam Neurological exam: Alert, Oriented x3 - Psychiatric Exam Psychiatric exam: Normal Affect, Normal Mood Discharge Plan - Discharge Medications Prescriptions: Albuterol HFA [Ventolin HFA 90 mcg/actuation (8 g)] 2 puff IH [id number] #1 puff Amoxicillin/Clavulanate [Augmentin 875 MG-125 MG] 1 tab PO BID 7 Days #14 tab Apixaban [Eliquis] 10 mg PO BID 6 Days #12 tab Apixaban [Eliquis] 5 mg PO BID #60 tab Calcium Carbonate [Oscal] 1,000 mg PO BIDWM #60 tab Clotrimazole 1% Cream [Lotrimin 1% CREAM] 1 applic TOP BID #1 tube Metoprolol Succinate XL [Toprol XL] 25 mg PO DAILY #30 tab - Follow Up Plan Condition: STABLE Disposition: HOME/ ROUTINE Patient education suggested?: Yes Instructions: Neutropenia and Fever in People Being Treated for Cancer, Pulmonary Embolism (DC), Deep Venous Thrombosis (DC) Additional Instructions: Follow up with primary MD in 1 week Follow up for chemotherapy on Dr. George Saldaña on Wednesday Meds transmitted to pharmacy listed on [facility] Referrals: Margo Saldaña MD [Staff Provider] - Mook Burgess MD [Staff Provider] -
--- NOTE | 2018-04-29 12:38 | CARD ---
APPROVED REPORT EKG Measurement Heart [id number] <Conclusion> Sinus bradycardia with frequent premature ventricular complexes Left axis deviation Nonspecific T wave abnormality Abnormal ECG
--- NOTE | 2018-04-29 13:15 | CP.PCM.PN ---
Subjective - Date & Time of Evaluation Date of Evaluation: 04/29/18 Time of Evaluation: 13:12 - Subjective Subjective: Discussed case with ID today. Spoke with radiology and supplied info regarding outpatient PET scan. On further review an area of increased activity can be visualized at the level of T3 vertebra. She has done well with electrolyte replacement, The follow up CT chest shows some improvement in the LLL pneumonic infiltrate. The RUL mass lesion is relatively unchanged. Her vital signs have been stable and she remains afebrile. Plan for discharge home later today to continue PO antibiotic (Augmentin) until she returns for chemo. Scheduled for chemotherapy on Wednesday. Objective - Vital Signs/Intake and Output Vital Signs (last 24 hours): Temp Pulse Resp BP Pulse Ox 98.5 F 103 H 19 150/74 95 04/29/18 09:00 04/29/18 09:00 04/29/18 09:00 04/29/18 09:00 04/29/18 09:00 - Medications Medications: Current Medications Alprazolam (Xanax) 1 mg PO TID PRN PRN Reason: Insomnia Last Admin: 04/28/18 08:52 Dose: 1 mg Apixaban (Eliquis) 10 mg PO BID [facility] PRN Reason: Protocol Atorvastatin Calcium (Lipitor) 20 mg PO DAILY [facility] Last Admin: 04/29/18 08:55 Dose: 20 mg Calcium Carbonate (Oscal) 500 mg PO BIDWM [facility] Last Admin: 04/29/18 08:55 Dose: 500 mg Clotrimazole (Lotrimin 1% Cream) 1 applic TOP BID [facility] Last Admin: 04/29/18 08:54 Dose: 1 appl Docusate Sodium (Colace) 100 mg PO BID [facility] Last Admin: 04/29/18 08:55 Dose: 100 mg Home Med (Desvenlafaxine Succinate [Pristiq]) 50 mg PO DAILY [facility] Last Admin: 04/29/18 08:54 Dose: 50 mg Piperacillin Sod/Tazobactam (Sod 4.5 gm/ Sodium Chloride) 100 mls @ 100 mls/hr IVPB Q6 [facility] PRN Reason: Protocol Last Admin: 04/29/18 10:16 Dose: 100 mls/hr Vancomycin HCl 1 gm/ Dextrose 250 mls @ 166.667 mls/hr IVPB DAILY KULDEEP PRN Reason: Protocol Stop: 04/29/18 17:29 Ketorolac Tromethamine (Toradol) 30 mg IVP TID PRN PRN Reason: Pain, severe (8-10) Last Admin: 04/28/18 11:36 Dose: 30 mg Lidocaine (Lidoderm) 2 ea TD DAILY [facility] Last Admin: 04/29/18 08:56 Dose: 2 ea Metoprolol Succinate (Toprol Xl) 25 mg PO DAILY [facility] Last Admin: 04/29/18 08:54 Dose: 25 mg Morphine Sulfate (Morphine) 2 mg IVP Q6 PRN PRN Reason: Pain, severe (8-10) Last Admin: 04/29/18 12:10 Dose: 2 mg Ondansetron HCl (Zofran Inj) 4 mg IVP Q6 PRN PRN Reason: Nausea/Vomiting Pantoprazole Sodium (Protonix Ec Tab) 20 mg PO DAILY [facility] Last Admin: 04/29/18 08:54 Dose: 20 mg Potassium Chloride (K-Dur 20 Meq Er Tab) 40 meq PO BID [facility] Senna/Docusate Sodium (Senokot S 50 Mg-8.6 Mg) 2 tab PO HS [facility] Last Admin: 04/28/18 21:06 Dose: 2 tab Sucralfate (Carafate Oral Susp) 1 gm PO DAILY@1100 [facility] Last Admin: 04/29/18 11:03 Dose: 1 gm Zolpidem Tartrate (Ambien) 5 mg PO HS PRN PRN Reason: Anxiety Last Admin: 04/28/18 21:09 Dose: 5 mg - Labs Labs: 04/29/18 06:42 04/29/18 06:42 Assessment and Plan (1) Deep vein thrombosis (DVT) Status: Acute (2) Acute pulmonary embolism Status: Acute (3) 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
[2018-04-29] MEDS ORDERED: Vancomycin 1 GM in Dextrose 5% In Water 250 ML IVPB SCH (16:00)
[2018-04-29 16:18] VITALS: BP 129/72; PULSE 60; RESP 20; TEMP 98.2; O2SAT 96
== END 2018-04-29 18:20 | disposition home or self-care (01) | DRG 808 ==
LOC: H.ER 00:52 → H.ERHOLD 04:15 → H.MEDSURG1 06:46
PROVIDERS: ADMIT Family Medicine; ATTEND Family Medicine
DX: D70.1 Agranulocytosis secondary to cancer chemotherapy (principal); I26.99 Other pulmonary embolism without acute cor pulmonale; J18.9 Pneumonia, unspecified organism; I82.442 Acute embolism and thrombosis of left tibial vein; C34.11 Malignant neoplasm of upper lobe, right bronchus or lung; T45.1X5A Adverse effect of antineoplastic and immunosuppressive drugs, initial encounter; R50.81 Fever presenting with conditions classified elsewhere; Z87.891 Personal history of nicotine dependence; F32.9 Major depressive disorder, single episode, unspecified; F41.9 Anxiety disorder, unspecified; G25.81 Restless legs syndrome; E78.5 Hyperlipidemia, unspecified; K21.9 Gastro-esophageal reflux disease without esophagitis; J43.9 Emphysema, unspecified; E83.51 Hypocalcemia; E83.42 Hypomagnesemia; K29.70 Gastritis, unspecified, without bleeding; L30.4 Erythema intertrigo; M54.32 Sciatica, left side; M54.31 Sciatica, right side; I95.9 Hypotension, unspecified; E87.6 Hypokalemia; I45.81 Long QT syndrome; D64.81 Anemia due to antineoplastic chemotherapy; D63.0 Anemia in neoplastic disease

== ENCOUNTER 2018-12-03 05:15 | Emergency (ER) | payer OTHER ==
[2018-12-03 05:15] VITALS: BMI 31.1
[2018-12-03 05:28] VITALS: O2SAT 97
[2018-12-03] MEDS ORDERED: Oxycodone/Acetaminophen 5/325 mg Tab PO STA (06:06)
[2018-12-03] MEDS ORDERED: Oxycodone/Acetaminophen 5/325 mg Tab ONE (06:19)
--- NOTE | 2018-12-03 06:26 | ED PDOC ---
Lower Extremity Pain/Injury Time Seen by Provider: 12/03/18 05:39 Chief Complaint (Nursing): Lower Extremity Problem/Injury History Per: Patient History/Exam Limitations: no limitations Onset/Duration Of Symptoms: Days (1) Current Symptoms Are (Timing): Still Present Severity: Severe Pain Scale Rating Of: 10 Additional History Per: Patient - Risk Factors DVT Risk Factors: Pos: Active Cancer, History Of DVT Past Medical History Reviewed: Historical Data, Nursing Documentation, Vital Signs Vital Signs: Last Vital Signs Temp 97.8 F 12/03/18 05:25 Pulse 92 H 12/03/18 05:25 Resp 18 12/03/18 05:25 BP 134/90 12/03/18 05:25 Pulse Ox 97 12/03/18 05:25 - Medical History PMH: Anxiety, Arthritis, Bronchitis, Depression, Gastritis, HTN, Hyperlipidemia Denies: Diabetes, Chronic Kidney Disease - Surgical History Surgical History: No Surg Hx - Family History Family History: States: Unknown Family Hx - Home Medications Home Medications: Ambulatory Orders Medication Instructions Recorded RX: ALPRAZolam [Xanax] 1 mg PO TID PRN 04/23/18 RX: Desvenlafaxine Succinate 50 mg PO DAILY 04/23/18 [Pristiq] RX: Dexlansoprazole [Dexilant] 30 mg PO DAILY 04/23/18 RX: Famotidine [Pepcid] 20 mg PO DAILY 04/23/18 RX: Rosuvastatin Calcium [Crestor] 10 mg PO DAILY 04/23/18 RX: Sucralfate [Carafate Oral Susp] 1 gm PO DAILY 04/23/18 RX: Zolpidem [Ambien] 5 mg PO HS PRN 04/23/18 RX: Apixaban [Eliquis] 10 mg PO BID 6 Days #12 tab 04/29/18 RX: Metoprolol Succinate XL 25 mg PO DAILY #30 tab 04/29/18 [Toprol XL] RX: Naproxen [Naprosyn] 500 mg PO BID PRN #20 tablet 12/03/18 - Allergies Allergies/Adverse Reactions: Allergies Allergy/AdvReac Type Severity Reaction Status Date / Time No Known Allergies Allergy Verified 12/03/18 05:28 Review of Systems ROS Statement: Except As Marked, All Systems Reviewed And Found Negative Physical Exam - Reviewed Nursing Documentation Reviewed: Yes Vital Signs Reviewed: Yes - Physical Exam Appears: Positive for: Non-toxic, No Acute Distress Head Exam: Positive for: ATRAUMATIC, NORMAL INSPECTION Skin: Positive for: Normal Color, Warm Eye Exam: Positive for: EOMI Cardiovascular/Chest: Positive for: Regular Rate, Rhythm Respiratory: Positive for: Normal Breath Sounds Gastrointestinal/Abdominal: Positive for: Soft. Negative for: Tenderness Extremity: Positive for: Normal ROM, Calf Tenderness (Left lower leg) Neurologic/Psych: Positive for: Alert, Oriented - ECG O2 Sat by Pulse Oximetry: 97 Medical Decision Making Medical Decision Making: Impression left leg pain Diff include sciatica , DVT Duplex percpcetPO Toradol IM impression 07:00 Patient care endorsed to Dr. Martin pending doppler. Disposition - Clinical Impression Clinical Impression: Leg pain - Patient ED Disposition Is Patient to be Admitted: Transfer of Care Counseled Patient/Family Regarding: Studies Performed, Diagnosis - Disposition Referrals: Jose Alfredo Saldaña MD [Staff Provider] - Margo Saldaña MD [Staff Provider] - Madan Sam MD [Staff Provider] - Mook Burgess MD [Staff Provider] - Disposition: Transfer of Care Disposition Time: 07:00 Condition: STABLE Prescriptions: RX: Naproxen [Naprosyn] 500 mg PO BID PRN #20 tablet PRN Reason: Pain, Moderate (4-7) Instructions: Metatarsalgia Patient Signed Over To: Janine Martin
--- NOTE | 2018-12-03 07:48 | ED PDOC ---
- ECG O2 Sat by Pulse Oximetry: 97 (RA) Pulse Ox Interpretation: Normal - Progress Condition: Improved Medical Decision Making Medical Decision Making: Time: 7:00 Patient was endorsed to me by Dr. David pending ultrasound. -- Scribe Attestation: Documented by Elisa West, acting as a scribe for Janine Martin MD. Provider Scribe Attestation: All medical record entries made by the Scribe were at my direction and personally dictated by me. I have reviewed the chart and agree that the record accurately reflects my personal performance of the history, physical exam, medical decision making, and the department course for this patient. I have also personally directed, reviewed, and agree with the discharge instructions and disposition. Disposition Doctor Will See Patient In The: Office Counseled Patient/Family Regarding: Diagnosis, Need For Followup, Rx Given - Clinical Impression Clinical Impression: Leg pain - POA Present On Arrival: None - Disposition Referrals: Mook Burgess MD [Staff Provider] - Jose Alfredo Saldaña MD [Staff Provider] - Margo Saldaña MD [Staff Provider] - Madan Sam MD [Staff Provider] - Disposition: Routine/Home Disposition Time: 10:55 Condition: STABLE Prescriptions: Naproxen [Naprosyn] 500 mg PO BID PRN #20 tablet PRN Reason: Pain, Moderate (4-7) Instructions: Metatarsalgia Forms: [employer] ([place]ian)
[2018-12-03] MEDS ORDERED: Naproxen 500 MG TAB PO ONE ×2 (10:55→11:09)
[2018-12-03 11:15] VITALS: BP 120/83; PULSE 89; RESP 16; TEMP 97.9
--- NOTE | 2018-12-03 12:01 | US ---
Date of service: 12/03/2018 HISTORY: Left leg pain lower. PRIORS: Comparison made with prior study 04/23/2018. FINDINGS: 2-D, color and duplex Doppler analysis of the lower extremity venous circulation using routine protocol from the femoral veins through the popliteal veins. Venous compressibility: Normal. Flow and augmentation patterns: Normal. Visualized veins upper third of calf: Normal. Barraza cyst: None. IMPRESSION: No sonographic or Doppler evidence for DVT in left lower extremity.
== END 2018-12-03 11:12 | disposition home or self-care (01) ==
LOC: H.ER 05:15
DX: M79.605 Pain in left leg (principal)
CPT/HCPCS: 93971; 96372; 99285; J1885